=== PATIENT | female | born 1950 | race African-American/Black ===

== ENCOUNTER → 2021-03-27 11:05 | Outpatient (BNVA) | payer MEDICARE, OTHER, SELFPAY | PROVIDERS: PCP Internal Medicine; Referring Provider Internal Medicine; Visit Provider Surgery | DX: Z91.89 Other specified personal risk factors, not elsewhere classified (principal); Z85.3 Personal history of malignant neoplasm of breast | CPT/HCPCS: 99212 ==

== ENCOUNTER → 2021-05-05 11:36 | Outpatient (BNVA) | payer MEDICARE, OTHER, SELFPAY | PROVIDERS: PCP Internal Medicine; Visit Provider Nurse Practitioner Family | DX: G47.33 Obstructive sleep apnea (adult) (pediatric) (principal) | CPT/HCPCS: Q3014 ==

== ENCOUNTER 2021-06-11 10:37 | Outpatient (REF) | payer MEDICARE, OTHER, SELFPAY ==
--- NOTE | ~2021-06-11 | US_ITS ---
EXAMINATION: US DIAGNOSTIC ULTRASOUND BREAST (AXILLA), BILATERAL CLINICAL INFORMATION: Outside high risk screening breast MRI demonstrates prominent bilateral axillary nodes, greater on right. COMPARISON: Outside imaging from [facility]: MR bilateral breasts 05/14/2021, mammography 03/25/2021, 03/21/2020, 03/20/2019. TECHNIQUE: Ultrasound of the bilateral axilla is performed using grayscale imaging and color Doppler without and with harmonics. FINDINGS: Ultrasound right axilla demonstrates 2 left nodes 9:30 o'clock position 20 cm from nipple with thickened cortex measuring up to 0.7 cm. Otherwise, there is normal fatty hilus. Other nodes more cephalad right axilla are approximately 0.35 cm in thickness, also with normal fatty hilus. There is no abnormal color flow. No cystic node or node with spiculated margin. Ultrasound left axilla demonstrates a few small nodes with cortex measuring approximately 0.35 cm in thickness. No abnormal color flow. No cystic node or node with spiculated margin. There is normal fatty hilus. Results are discussed with the patient at time of visit. The nodes are described as change from prior exams. Ultrasound-guided sampling of one of the thickened right axillary nodes is suggested. Results called to senior medical billing specialist ([place]) for Dr. Camarillo on 06/11/2021. US/US breast LT limited IMPRESSION: Nonspecific parenchymal thickening involving 2 right axillary nodes. ASSESSMENT: BI-RADS 4: Suspicious (subcategory 4A: Low suspicion for malignancy) RECOMMENDATION: Ultrasound-guided biopsy right axillary node.
--- NOTE | ~2021-06-11 | US_ITS ---
EXAMINATION: US DIAGNOSTIC ULTRASOUND BREAST (AXILLA), BILATERAL CLINICAL INFORMATION: Outside high risk screening breast MRI demonstrates prominent bilateral axillary nodes, greater on right. COMPARISON: Outside imaging from [facility]: MR bilateral breasts 05/14/2021, mammography 03/25/2021, 03/21/2020, 03/20/2019. TECHNIQUE: Ultrasound of the bilateral axilla is performed using grayscale imaging and color Doppler without and with harmonics. FINDINGS: Ultrasound right axilla demonstrates 2 left nodes 9:30 o'clock position 20 cm from nipple with thickened cortex measuring up to 0.7 cm. Otherwise, there is normal fatty hilus. Other nodes more cephalad right axilla are approximately 0.35 cm in thickness, also with normal fatty hilus. There is no abnormal color flow. No cystic node or node with spiculated margin. Ultrasound left axilla demonstrates a few small nodes with cortex measuring approximately 0.35 cm in thickness. No abnormal color flow. No cystic node or node with spiculated margin. There is normal fatty hilus. Results are discussed with the patient at time of visit. The nodes are described as change from prior exams. Ultrasound-guided sampling of one of the thickened right axillary nodes is suggested. Results called to auditor medical claims ([place]) for Dr. Camarillo on 06/11/2021. US/US breast RT limited IMPRESSION: Nonspecific parenchymal thickening involving 2 right axillary nodes. ASSESSMENT: BI-RADS 4: Suspicious (subcategory 4A: Low suspicion for malignancy) RECOMMENDATION: Ultrasound-guided biopsy right axillary node.
== END 2021-06-11 10:38 | disposition home or self-care (01) ==
LOC: HO.MAMMO 10:37
PROVIDERS: PCP Internal Medicine; Visit Provider Surgery
DX: R59.9 Enlarged lymph nodes, unspecified (principal); D05.01 Lobular carcinoma in situ of right breast
CPT/HCPCS: 76642

== ENCOUNTER 2021-06-13 10:04 | Outpatient (REF) | payer MEDICARE, OTHER, SELFPAY ==
--- NOTE | ~2021-06-13 | MM_ITS ---
EXAMINATION: ULTRASOUND GUIDED CORE BIOPSY AXILLA, RIGHT POST PROCEDURE DIGITAL MAMMOGRAM, RIGHT CLINICAL INFORMATION: Prominent axillary nodes greater on right on outside high risk screening breast MRI. Nodes with thickened cortex on recent targeted ultrasound. COMPARISON: Bilateral axillary ultrasound 06/11/2021, outside imaging from [facility]: MR bilateral breasts 05/14/2021, mammography 03/25/2021, 03/21/2020, 03/20/2019. FINDINGS: Proper informed consent is obtained from the patient after discussion of the procedure, potential risks and complications, and alternatives. Patient was given an opportunity for questions. The patient appeared to understand. The patient consented to the procedure and signed the consent form. GUIDANCE: Ultrasound-guided; aseptic technique. LESION: Right axillary nodes with thickened parenchyma. APPROACH: Lateral medial. ANESTHESIA: 9.5 mL carbonated 1% lidocaine. DERMATOTOMY: Single skin alberto dermatotomy performed. NEEDLE: 16-gauge Bard Marquee biopsy device with co-axial introducer. CORES: 6. Material sent for histology and if required flow cytometry CLIP: HydroMARK; shape: butterfly. POST PROCEDURE UNILATERAL DIGITAL MAMMOGRAM: The post biopsy mammogram is performed in separate room using separate digital mammography equipment from the biopsy procedure. Single MLO view targeted to the upper breast and axillary is performed. There are scattered areas of fibroglandular density (breast composition category: b). The clip marker is in position, overlying the axillary node. There is background tissue density from the procedure and anesthesia. Otherwise, no gross hematoma. The patient tolerated the procedure well. No immediate complications. Home instructions reviewed with the patient. Final pathology results are pending. MM/MM diagnostic mammo unilat RT IMPRESSION: 1. Status post ultrasound-guided core biopsy right axillary node. 2. Clip placed: HydroMARK; shape: butterfly. 3. Pathology pending. An addendum report will be issued.
[2021-06-13] MEDS: Sodium Bicarbonate 8.4% 50 MEQ/50 ML VIAL SUBCUT (11:30)
[2021-06-13] MEDS: Lidocaine HCl 1 % 20 ML VIAL 9 ML SUBCUT (11:30)
== END 2021-06-13 10:05 | disposition home or self-care (01) ==
LOC: HO.MAMMO 10:04
PROVIDERS: Radiology Diagnostic Radiology; Visit Provider Surgery
DX: D05.01 Lobular carcinoma in situ of right breast (principal); R59.9 Enlarged lymph nodes, unspecified
CPT/HCPCS: 19083; 36415; 38505; 76942; 77065; 88184; 88185; 88300; 88305; 88341; 88342; 88360

== ENCOUNTER → 2021-06-30 10:12 | Outpatient (REF) | payer MEDICARE, OTHER, SELFPAY ==
--- NOTE | ~2021-06-30 | NM_ITS ---
EXAMINATION: NM BONE SCAN OF THE WHOLE BODY CLINICAL INFORMATION: Right breast cancer. Patient states status post fall 2-3 weeks ago her right knee but improving now. COMPARISON: No previous bone scan or recent radiographs are available for comparison. TECHNIQUE: Multiple gamma scintillation camera images of the whole body were performed 3 hours following the intravenous administration of 32 mCi Tc-99m MDP. FINDINGS: In the head, no significant abnormalities are present. In the thoracic cage and upper extremities, there is moderately increased activity in the acromioclavicular and sternoclavicular joints bilaterally, in the glenohumeral articulations bilaterally but much more prominently on the right and in the lateral subacromial region of the right humeral head. Mild periarticular foci of increased activity are present in both hands and wrists and there is some mild retained radiopharmaceutical in the region of the injection site in the left antecubital fossa. In the spine, there is mildly increased activity in a lower thoracic vertebral body, probably at T9. Additional foci of mildly increased activity are present in the right side of the mid to lower cervical spine and anteriorly in the lower cervical spine at the C7-T1 level. There are additional mild foci of increased activity present bilaterally in the posterior elements in the mid lumbar spine probably at the L3-L4 level and there is minimally increased activity in the right side of the lumbosacral junction. In the pelvis, there is moderately increased activity diffusely in the left sacroiliac joint and mildly in the superior aspect of the right sacroiliac joint. There is mildly increased activity in the right acetabulum. In the lower extremities, there is mildly increased activity diffusely in both knees, most prominently in the patellar and medial compartments. There is additional focus of increased activity of mild intensity in the left greater femoral trochanter, likely due to an enthesopathy, and there are mild foci of increased activity present laterally in the mid feet bilaterally and in the medial aspects of both ankles. No other definite bony abnormalities are noted. The urinary bladder and faint visualization of both kidneys are noted. NM/NM bone scan whole body IMPRESSION: Multiple abnormalities are noted and these are almost all periarticular in etiology and likely degenerative. Correlation of these abnormalities with plain radiographs is recommended, particularly in the pelvis and lumbar and lower thoracic spine.
== END ==
LOC: HO.NUCMED 10:12
PROVIDERS: Visit Provider Internal Medicine
DX: D05.01 Lobular carcinoma in situ of right breast (principal)
CPT/HCPCS: 78306; A9503

== ENCOUNTER 2021-07-01 09:48 | Outpatient (REF) | payer MEDICARE, OTHER, SELFPAY ==
--- NOTE | ~2021-07-01 | CT_ITS ---
EXAMINATION: CT CHEST, ABDOMEN AND PELVIS WITH CONTRAST CLINICAL INFORMATION: Staging of breast cancer. COMPARISON: None TECHNIQUE: 5 mm thin axial and reformatted 3 mm thin sagittal and coronal images of the chest, abdomen and pelvis were obtained following IV 85 mL Omnipaque 350. DLP: 1176 mGy-cm. FINDINGS: CHEST: Lungs: Both lungs are fairly well expanded and clear of acute process. There is no pulmonary nodule, mass or consolidation seen. Mediastinum: The thyroid lobes are symmetrical and normal size but heterogeneous with small nodules. The central trachea and the bronchi are widely patent. The heart size and the great vessels are normal caliber. There is no pericardial effusion. No abnormal size mediastinal or hilar lymph nodes. Pleura: There is no pleural thickening, effusion or calcification. Axilla: There are small shotty lymph nodes in bilateral axillae with largest lymph node right axilla measuring 1.2 cm and 1.5 cm. The largest left axillary lymph node measures 1.3 cm. ABDOMEN AND PELVIS: Liver, Biliary Ducts and Gallbladder: The liver is normal size, contour and hypodensity. There is no intrahepatic ductal dilatation. There are small punctate hypodensities in the right hepatic lobe segment VII, question small cysts. The gallbladder is unremarkable. Spleen: Unremarkable. Pancreas: Unremarkable. Adrenal Glands: Unremarkable Kidneys, Ureter and Bladder: Both kidneys are normal size, lobulated and bilateral hypodense renal cysts. The largest cyst partially exophytic midpole measures 6.7 x 5.1 cm. There are no radiopaque calculi or hydronephrosis. Bladder: Unremarkable. GI Tract: There is scattered stool, gas and oral contrast seen throughout the colon without distention. The small bowel loops are normal caliber. Appendix is not visualized. The stomach is nondistended. No free air or free fluid seen. A small hiatal hernia is suspected. Abdominal Wall: There surgical sutures in the right lower abdomen from hernia repair or intervention. There is a small lipoma of the anterior sartorius or rectus femoris muscle. Lymphovascular Structures: The abdominal aorta is of normal caliber. There are no retroperitoneal masses or lymph nodes seen. Pelvis: The abdominal wall appears unremarkable. The uterus is anteverted and appears unremarkable. There is no free air or free fluid. Osseous structures: There are degenerative disc changes at L5-S1 and lower dorsal spine T11-T12, T8-T9, T7-T8 and rest of the mid thoracic spine. CT/CT abdomen pelvis w con IMPRESSION: No evidence of metastatic lung nodules or abnormal size mediastinal lymph nodes. There are borderline bilateral axillary lymph nodes. Mild attenuation of the liver with punctate hypodensities in the right hepatic lobe, question small cysts. No abnormal retroperitoneal or inguinal lymph nodes. Bilateral renal cysts without radiopaque calculi or hydronephrosis.
[2021-07-01] MEDS: iohexoL 350 MG/ML 100 ML INFUS..BTL IV (10:42)
== END 2021-07-01 09:49 | disposition home or self-care (01) ==
LOC: HO.CT 09:48
PROVIDERS: Visit Provider Internal Medicine
DX: D05.01 Lobular carcinoma in situ of right breast (principal)
CPT/HCPCS: 71260; 74177; Q9967

== ENCOUNTER 2021-07-04 08:01 | Outpatient (REF) | payer MEDICARE, OTHER, SELFPAY ==
--- NOTE | ~2021-07-04 | MM_ITS ---
EXAMINATION: MM DIAGNOSTIC DIGITAL MAMMOGRAPHY, LEFT CLINICAL INFORMATION: Post biopsy clip placement left axillary lymph node COMPARISON: Mammography: August 13, 2021 and March 25, 2021 DIGITAL POST-PROCEDURE MAMMOGRAPHY: Breast density: The tissue contains scattered areas of fibroglandular density. BI-RADS version 5, category B. There are no new mammographic findings demonstrated. The postprocedure 2-view direct digital mammogram reveals satisfactory positioning of the biopsy clip. The patient tolerated the procedure well and, after assuring adequate hemostasis, was discharged in good condition after reviewing postbiopsy breast care instructions. Final pathology results are pending. MM/MM diagnostic mammo unilat LT IMPRESSION: 1. No immediate complication from ultrasound-guided percutaneous biopsy left axillary lymph node. 2. Ultrasound was used to localize and guide marker clip placement. 3. The 2-view direct digital postprocedure mammogram reveals satisfactory positioning of the biopsy clip. 4. Final pathology results are pending. A separate report with final recommendations will be issued once these results are made available.
--- NOTE | ~2021-07-04 | US_ITS ---
PROCEDURE: US-GUIDED BREAST BIOPSY, LEFT CLINICAL INFORMATION: Question enlarged left axillary lymph node. Patient with metastatic lobular carcinoma of the breast with metastatic disease to right axillary lymph nodes. COMPARISON: CT scans of 07/01/2021, ultrasound of 06/11/2021, and MRI of 05/14/2021. PROCEDURAL DETAILS: The details of the procedure, as well as the risks, benefits, and alternatives to the procedure were explained to the patient in detail and all of her questions were answered, after which written informed consent was obtained. Site and side were confirmed. Prior to the procedure, sonography revealed a few left axillary lymph nodes with the most prominent on having mildly thickened cortex to approximately 4 mm in diameter without lobulation and with normal fatty cleft still evident within the lymph node. A time-out was performed, the lesion intended for biopsy was targeted, and the skin of the left axilla was then prepped and draped in the usual sterile fashion. Using sonographic guidance, sterile technique, and 1% lidocaine without epinephrine for local anesthesia, multiple automated core biopsies were obtained through the targeted area with a 14G spring loaded Achieve core biopsy device. There was real-time confirmation of appropriate needle passage. Sampling was documented. At the completion of tissue sampling, a single open coil metallic clip was deposited at the biopsy site. There was no evidence of immediate complication. SPECIMEN: An appropriate sample was obtained. DIGITAL POST-PROCEDURE MAMMOGRAPHY: Breast Density: The tissue contains scattered areas of fibroglandular density. BI-RADS version 5, category B. There are no new mammographic findings demonstrated. The postprocedure 2-view direct digital mammogram reveals satisfactory positioning of the biopsy clip. The patient tolerated the procedure well and, after assuring adequate hemostasis, was discharged in good condition after reviewing postbiopsy breast care instructions. Final pathology results are pending. US/US biopsy lymph node IMPRESSION: 1. No immediate complication from ultrasound-guided percutaneous biopsy left axillary lymph node. 2. Ultrasound was used to localize and guide marker clip placement. 3. The 2-view direct digital postprocedure mammogram reveals satisfactory positioning of the biopsy clip. 4. Final pathology results are pending. A separate report with final recommendations will be issued once these results are made available.
[2021-07-04] MEDS: Lidocaine HCl 1 % 20 ML VIAL 9 ML SUBCUT (10:19)
== END 2021-07-04 08:02 | disposition home or self-care (01) ==
LOC: HO.MAMMO 08:01
PROVIDERS: Visit Provider Internal Medicine
DX: C50.919 Malignant neoplasm of unspecified site of unspecified female breast (principal); R59.9 Enlarged lymph nodes, unspecified
CPT/HCPCS: 38505; 76942; 77065; 88305; 88342; A4648

== ENCOUNTER 2023-03-30 10:58 | Outpatient (AMB) | payer MEDICARE, OTHER, SELFPAY ==
--- NOTE | 2023-03-30 11:12 | HO.NEPHOV_ITS ---
HPI HPI Comments History of Present Illness Details I had the privilege of seeing Kellee in follow-up of her chronic kidney disease and hypertension. She had right breast cancer and had been getting treatment from [facility]. She is on Abemaciclib. Her last serum creatinine was 1.8. She is not taking the losartan. Her blood sugar control is good. She does not have any chest pain, shortness of breath, proximal nocturnal dyspnea, orthopnea, pedal edema, hematuria or any other new systemic complaints. [facility] Medical History (Updated 03/30/23 @ 13:44 by Qamar Cee MD) Hypertension Hypercholesterolemia Diabetes mellitus Lobular carcinoma in situ At high risk for breast cancer Surgical History History of lumpectomy Family History Father Prostate cancer Diabetes HTN (hypertension) Mother Diabetes HTN (hypertension) Social History Household Members: Family and Friend(s) Household Members Other:: mom Housing: House Are you a primary pharmacy care coordinator to a significant other at home: Yes Do you presently have visiting nurse or other home services: No Patient Tobacco Use Status: Never used Tobacco service: No Current occupational status: retired Vital Signs 03/30/23 11:17 Height 5 ft 3 in Weight 209 lb BMI 37.0 BP 130/80 Blood Pressure Location Rt brachial Position Sitting Pulse 84 Pulse Source Pulse Oximeter Pulse Oximetry (%) 97 Oxygen Delivery Method Room Air Physical Exam Vital Signs: Last Vital Signs Pulse 84 03/30/23 11:17 BP 130/80 03/30/23 11:17 Pulse Ox 97 03/30/23 11:17 Oxygen Delivery Method Room Air 03/30/23 11:17 BMI result Body Mass Index 37.0 Const General: comfortable and no acute distress Orientation/consciousness: patient oriented x3 HEENT Head: Yes normocephalic Mouth: Normal oral and palatal mucosa present Eyes EOM: EOMs intact bilaterally Neck Neck: Yes supple Resp Auscultation: clear to auscultation bilaterally Cardio Jugular venous distension: no JVD Rate: regular rate GI Palpation (GI): Soft to palpation Auscultation: normal bowel sounds General: Yes no CVA tenderness Back/Spine/Pelvis Back: no CVA tenderness Skin General skin exam: no rashes or lesions noted Neuro General: patient oriented x3 and moves all extremities Extrem General: Yes no pedal edema Assessment & Plan Assessment & Plan (1) CKD (chronic kidney disease) stage 3, GFR 30-59 ml/min: Code(s): N18.30 - Chronic kidney disease, stage 3 unspecified Qualifiers: Chronic kidney disease stage 3 subtype: stage 3a (GFR 45-59) Qualified Code(s): N18.31 - Chronic kidney disease, stage 3a (2) Hypertension: Code(s): I10 - Essential (primary) hypertension Qualifiers: Hypertension type: primary hypertension Qualified Code(s): I10 - Essential (primary) hypertension (3) Proteinuria: Code(s): R80.9 - Proteinuria, unspecified Qualifiers: Proteinuria type: other Qualified Code(s): R80.8 - Other proteinuria Plan Kellee has 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 Her serum creatinine is mildly worse from baseline but stable. Her blood pressure is at goal. She is not taking any losartan. She can continue her current antihypertensive medication regimen. She is on chemotherapeutic agents. She needs to use her CPAP regularly. I did not make any medication changes today. Follow-up blood work ordered. All questions answered. Follow-up given Orders: Orders Electrolytes Today N18.30 - Chronic kidney disease, stage 3 unspecified Blood Urea Nitrogen Today N18.30 - Chronic kidney disease, stage 3 unspecified Creatinine Today N18.30 - Chronic kidney disease, stage 3 unspecified Calcium Today N18.30 - Chronic kidney disease, stage 3 unspecified Protein Creatinine Ratio, Ur Today N18.30 - Chronic kidney disease, stage 3 unspecified Coding Level of Care Code Est Pt Level 3 (57998) Diagnoses Stage 3a chronic kidney disease N18.31 Chronic kidney disease stage 3 subtype: stage 3a (GFR 45-59) Primary hypertension I10 Hypertension type: primary hypertension Other proteinuria R80.8 Proteinuria type: other
[2023-03-30 11:17] VITALS: BP 130/80; PULSE 84; O2SAT 97; BMI 37.0
== END 2023-03-30 11:54 | disposition home or self-care (01) ==
PROVIDERS: PCP Internal Medicine; Visit Provider Internal Medicine Nephrology
DX: N18.31 Chronic kidney disease, stage 3a (principal); I10 Essential (primary) hypertension; R80.8 Other proteinuria
CPT/HCPCS: 99213

== ENCOUNTER → 2023-03-30 10:58 | Outpatient (BNVA) | payer MEDICARE, OTHER, SELFPAY | PROVIDERS: PCP Internal Medicine; Visit Provider Internal Medicine Nephrology | DX: I12.9 Hypertensive chronic kidney disease with stage 1 through stage 4 chronic kidney disease, or unspecified chronic kidney disease (principal); N18.31 Chronic kidney disease, stage 3a; R80.8 Other proteinuria | CPT/HCPCS: 99212 ==

== ENCOUNTER 2023-07-22 10:06 | Outpatient (AMB) | payer MEDICARE, OTHER, SELFPAY ==
--- NOTE | 2023-07-22 10:12 | HO.NEPHOV ---
HPI HPI Comments History of Present Illness Details I had the privilege of seeing Kellee in follow-up of her chronic kidney disease and hypertension. She had right breast cancer and had been getting treatment from [facility]. She is on Abemaciclib. Her last serum creatinine was 1.64. She is not taking the losartan. Her blood sugar control is good. She does not have any chest pain, shortness of breath, proximal nocturnal dyspnea, orthopnea, pedal edema, hematuria or any other new systemic complaints. [facility] Medical History (Updated 03/30/23 @ 13:44 by Qamar Cee MD) Hypertension Hypercholesterolemia Diabetes mellitus Lobular carcinoma in situ At high risk for breast cancer Surgical History History of lumpectomy Family History Father Prostate cancer Diabetes HTN (hypertension) Mother Diabetes HTN (hypertension) Social History Household Members: Family and Friend(s) Household Members Other:: mom Housing: House Are you a primary direct care specialist to a significant other at home: Yes Do you presently have visiting nurse or other home services: No Patient Tobacco Use Status: Never used Tobacco service: No Current occupational status: retired Vital Signs 07/22/23 10:30 Height 5 ft 3 in BP 134/80 Blood Pressure Location Rt brachial Position Sitting Pulse 98 Pulse Source Pulse Oximeter Pulse Oximetry (%) 97 Oxygen Delivery Method Room Air Physical Exam Const General: comfortable and no acute distress Orientation/consciousness: patient oriented x3 HEENT Head: Yes normocephalic Mouth: Normal oral and palatal mucosa present Eyes EOM: EOMs intact bilaterally Neck Neck: Yes supple Resp Auscultation: clear to auscultation bilaterally Cardio Jugular venous distension: no JVD Rate: regular rate GI Palpation (GI): Soft to palpation Auscultation: normal bowel sounds General: Yes no CVA tenderness Back/Spine/Pelvis Back: no CVA tenderness Skin General skin exam: no rashes or lesions noted Neuro General: patient oriented x3 and moves all extremities Extrem General: Yes no pedal edema Assessment & Plan Assessment & Plan (1) CKD (chronic kidney disease) stage 3, GFR 30-59 ml/min: Code(s): N18.30 - Chronic kidney disease, stage 3 unspecified Qualifiers: Chronic kidney disease stage 3 subtype: stage 3a (GFR 45-59) Qualified Code(s): N18.31 - Chronic kidney disease, stage 3a (2) Hypertension: Code(s): I10 - Essential (primary) hypertension Qualifiers: Hypertension type: primary hypertension Qualified Code(s): I10 - Essential (primary) hypertension (3) Proteinuria: Code(s): R80.9 - Proteinuria, unspecified Qualifiers: Proteinuria type: other Qualified Code(s): R80.8 - Other proteinuria Plan Kellee has 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 Her serum creatinine is stable. Her last serum creatinine was 1.64, Her blood pressure is at goal. She is not taking any losartan. She can continue her current antihypertensive medication regimen. She is on chemotherapeutic agents. She needs to use her CPAP regularly. I did not make any medication changes today. Follow-up blood work ordered. All questions answered. Follow-up given Orders: Orders Creatinine Today I10 - Essential (primary) hypertension, N18.31 - Chronic kidney disease, stage 3a, R80.8 - Other proteinuria Blood Urea Nitrogen Today I10 - Essential (primary) hypertension, N18.31 - Chronic kidney disease, stage 3a, R80.8 - Other proteinuria Electrolytes Today I10 - Essential (primary) hypertension, N18.31 - Chronic kidney disease, stage 3a, R80.8 - Other proteinuria Calcium Today I10 - Essential (primary) hypertension, N18.31 - Chronic kidney disease, stage 3a, R80.8 - Other proteinuria Protein Creatinine Ratio, Ur Today I10 - Essential (primary) hypertension, N18.31 - Chronic kidney disease, stage 3a, R80.8 - Other proteinuria Medications: New clonidine HCl 0.1 mg PO BID 60 tabs 4RF blood pressure test kit-large As directed 1 ea 0RF Coding Level of Care Code Est Pt Level 4 (87787) Diagnoses Stage 3a chronic kidney disease N18.31 Chronic kidney disease stage 3 subtype: stage 3a (GFR 45-59) Primary hypertension I10 Hypertension type: primary hypertension Other proteinuria R80.8 Proteinuria type: other Results Reviewed Nephrology Results: Hgb 11.4 g/dl (12.0-16.0) L 06/23/21 WBC 5.0 X10*3/uL (4.8-10.8) 06/23/21 Plt Count 235 X10*3/uL (160-400) 06/23/21 Sodium 141 mmol/L (135-145) 06/23/21 Potassium 3.8 mmol/L (3.3-5.1) 06/23/21 Chloride 107 mmol/L (96-108) 06/23/21 Carbon Dioxide 26 mmol/L (22-29) 06/23/21 BUN 15 mg/dL (9-16) 06/23/21 Creatinine 1.15 mg/dL (0.5-1.4) 06/23/21 Calcium 10.1 mg/dL (8.4-10.2) 06/23/21
[2023-07-22 10:30] VITALS: BP 134/80; PULSE 98; O2SAT 97
== END 2023-07-22 11:09 | disposition home or self-care (01) ==
PROVIDERS: PCP Internal Medicine; Visit Provider Internal Medicine Nephrology
DX: N18.31 Chronic kidney disease, stage 3a (principal); I10 Essential (primary) hypertension; R80.8 Other proteinuria
CPT/HCPCS: 99214

== ENCOUNTER → 2023-07-22 10:06 | Outpatient (BNVA) | payer MEDICARE, OTHER, SELFPAY | PROVIDERS: PCP Internal Medicine; Visit Provider Internal Medicine Nephrology | DX: I12.9 Hypertensive chronic kidney disease with stage 1 through stage 4 chronic kidney disease, or unspecified chronic kidney disease (principal); N18.31 Chronic kidney disease, stage 3a; R80.8 Other proteinuria | CPT/HCPCS: 99212 ==

== ENCOUNTER 2023-11-18 10:11 | Outpatient (AMB) | payer MEDICARE, OTHER, SELFPAY ==
--- NOTE | 2023-11-18 10:40 | HO.NEPHOV ---
Vital Signs 11/18/23 10:41 Height 5 ft 3 in BP 110/80 Blood Pressure Location Lt brachial Position Sitting Pulse 62 Pulse Source Pulse Oximeter Pulse Oximetry (%) 97 Oxygen Delivery Method Room Air Intake Visit Reasons: 4 month F/U / Conf Clinical Data Assistant Required: No Accompanied by: Self / Same As Patient Allergies codiene Allergy (Unknown, Uncoded 07/16/21 10:55) nausea and vomiting HPI Comments Details: I had the privilege of seeing Kellee in follow-up of her chronic kidney disease and hypertension. She had right breast cancer and had been getting treatment from [facility]. She is on Abemaciclib. Her last serum creatinine was 1.94( up from her baseline). She is not taking the losartan. Her blood sugar control is good. She does not have any chest pain, shortness of breath, proximal nocturnal dyspnea, orthopnea, pedal edema, hematuria or any other new systemic complaints. [facility] Medical History (Updated 03/30/23 @ 13:44 by Qamar Cee MD) Hypertension Hypercholesterolemia Diabetes mellitus Lobular carcinoma in situ At high risk for breast cancer Surgical History History of lumpectomy Family History Father Prostate cancer Diabetes HTN (hypertension) Mother Diabetes HTN (hypertension) Social History Household Members: Family and Friend(s) Household Members Other:: mom Housing: House Are you a primary child care coordinator to a significant other at home: Yes Do you presently have visiting nurse or other home services: No Patient Tobacco Use Status: Never used Tobacco service: No Current occupational status: retired Review of Systems Const All systems reviewed & are unremarkable except as noted in HPI and below Physical Exam Vital Signs: Last Vital Signs Pulse 62 11/18/23 10:41 BP 110/80 11/18/23 10:41 Pulse Ox 97 11/18/23 10:41 Oxygen Delivery Method Room Air 11/18/23 10:41 Const General: comfortable and no acute distress Orientation/consciousness: patient oriented x3 HEENT Head: Yes normocephalic Mouth: Normal oral and palatal mucosa present Eyes EOM: EOMs intact bilaterally Neck Neck: Yes supple Resp Auscultation: clear to auscultation bilaterally Cardio Jugular venous distension: no JVD Rate: regular rate GI Palpation (GI): Soft to palpation Auscultation: normal bowel sounds General: Yes no CVA tenderness Back/Spine/Pelvis Back: no CVA tenderness Skin General skin exam: no rashes or lesions noted Neuro General: patient oriented x3 and moves all extremities Extrem General: Yes no pedal edema Results Reviewed Nephrology Results: Hgb 11.4 g/dl (12.0-16.0) L 06/23/21 WBC 5.0 X10*3/uL (4.8-10.8) 06/23/21 Plt Count 235 X10*3/uL (160-400) 06/23/21 Sodium 141 mmol/L (135-145) 06/23/21 Potassium 3.8 mmol/L (3.3-5.1) 06/23/21 Chloride 107 mmol/L (96-108) 06/23/21 Carbon Dioxide 26 mmol/L (22-29) 06/23/21 BUN 15 mg/dL (9-16) 06/23/21 Creatinine 1.15 mg/dL (0.5-1.4) 06/23/21 Calcium 10.1 mg/dL (8.4-10.2) 06/23/21 Assessment & Plan Assessment & Plan (1) CKD (chronic kidney disease) stage 3, GFR 30-59 ml/min: Code(s): N18.30 - Chronic kidney disease, stage 3 unspecified Category: Medical Qualifiers: Chronic kidney disease stage 3 subtype: stage 3a (GFR 45-59) Qualified Code(s): N18.31 - Chronic kidney disease, stage 3a (2) Hypertension: Code(s): I10 - Essential (primary) hypertension Category: Medical Qualifiers: Hypertension type: primary hypertension Qualified Code(s): I10 - Essential (primary) hypertension Plan Kellee has 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 Her serum creatinine has gone up. Her last serum creatinine was 1.9, Her blood pressure is at goal. She is not taking any losartan. She can continue her current antihypertensive medication regimen. She is on chemotherapeutic agents. She needs to use her CPAP regularly. I did not make any medication changes today. Follow-up blood work ordered. All questions answered. Follow-up given Coding Level of Care Code Est Pt Level 4 (77267) Diagnoses Stage 3a chronic kidney disease N18.31 Chronic kidney disease stage 3 subtype: stage 3a (GFR 45-59) Primary hypertension I10 Hypertension type: primary hypertension
[2023-11-18 10:41] VITALS: BP 110/80; PULSE 62; O2SAT 97
== END 2023-11-18 11:22 | disposition home or self-care (01) ==
PROVIDERS: PCP Internal Medicine; Visit Provider Internal Medicine Nephrology
DX: N18.31 Chronic kidney disease, stage 3a (principal); I10 Essential (primary) hypertension
CPT/HCPCS: 99214

== ENCOUNTER → 2023-11-18 10:11 | Outpatient (BNVA) | payer MEDICARE, OTHER, SELFPAY | PROVIDERS: PCP Internal Medicine; Visit Provider Internal Medicine Nephrology | DX: I12.9 Hypertensive chronic kidney disease with stage 1 through stage 4 chronic kidney disease, or unspecified chronic kidney disease (principal); N18.31 Chronic kidney disease, stage 3a | CPT/HCPCS: 99212 ==

== ENCOUNTER 2024-01-27 13:25 | Outpatient (AMB) | payer MEDICARE, OTHER, SELFPAY ==
--- NOTE | 2024-01-27 13:38 | HO.NEPHOV_ITS ---
Vital Signs 01/27/24 13:39 Height 5 ft 3 in BP 132/78 Blood Pressure Location Rt brachial Position Sitting Pulse 83 Pulse Source Pulse Oximeter Pulse Oximetry (%) 97 Oxygen Delivery Method Room Air Intake Visit Reasons: 2 mon follow up- Conf Sales Assistant Institutional Sales Required: No Accompanied by: Self / Same As Patient Allergies codiene Allergy (Unknown, Uncoded 07/16/21 10:55) nausea and vomiting HPI Comments Details: I had the privilege of seeing Kellee in follow-up of her chronic kidney disease and hypertension. She had right breast cancer and had been getting treatment from [facility]. She is on Abemaciclib. Her last serum creatinine is around 2( up from her baseline). She is not taking the losartan. She is not on any SGLT2 i. Her blood sugar control is good. She does not have any chest pain, shortness of breath, proximal nocturnal dyspnea, orthopnea, pedal edema, hematuria or any other new systemic complaints [facility] Medical History (Updated 03/30/23 @ 13:44 by Qamar Cee MD) Hypertension Hypercholesterolemia Diabetes mellitus Lobular carcinoma in situ At high risk for breast cancer Surgical History History of lumpectomy Family History Father Prostate cancer Diabetes HTN (hypertension) Mother Diabetes HTN (hypertension) Social History Household Members: Family and Friend(s) Household Members Other:: mom Housing: House Are you a primary landcare officer to a significant other at home: Yes Do you presently have visiting nurse or other home services: No Patient Tobacco Use Status: Never used Tobacco service: No Current occupational status: retired Review of Systems Const All systems reviewed & are unremarkable except as noted in HPI and below Physical Exam Vital Signs: Last Vital Signs Pulse 83 01/27/24 13:39 BP 132/78 01/27/24 13:39 Pulse Ox 97 01/27/24 13:39 Oxygen Delivery Method Room Air 01/27/24 13:39 Const General: comfortable and no acute distress Orientation/consciousness: patient oriented x3 HEENT Head: Yes normocephalic Mouth: Normal oral and palatal mucosa present Eyes EOM: EOMs intact bilaterally Neck Neck: Yes supple Resp Auscultation: clear to auscultation bilaterally Cardio Jugular venous distension: no JVD Rate: regular rate GI Palpation (GI): Soft to palpation Auscultation: normal bowel sounds General: Yes no CVA tenderness Back/Spine/Pelvis Back: no CVA tenderness Skin General skin exam: no rashes or lesions noted Neuro General: patient oriented x3 and moves all extremities Extrem General: Yes no pedal edema Assessment & Plan Assessment & Plan (1) CKD (chronic kidney disease) stage 3, GFR 30-59 ml/min: Code(s): N18.30 - Chronic kidney disease, stage 3 unspecified Category: Medical Qualifiers: Chronic kidney disease stage 3 subtype: stage 3a (GFR 45-59) Qualified Code(s): N18.31 - Chronic kidney disease, stage 3a (2) Hypertension: Code(s): I10 - Essential (primary) hypertension Category: Medical Qualifiers: Hypertension type: primary hypertension Qualified Code(s): I10 - Essential (primary) hypertension (3) Proteinuria: Code(s): R80.9 - Proteinuria, unspecified Category: Medical Qualifiers: Proteinuria type: other Qualified Code(s): R80.8 - Other proteinuria Plan Kellee has 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 Her serum creatinine has gone up. Her last serum creatinine is around 2.0. Her blood pressure is at goal. She is not taking any losartan. I started her on Jardiance 10 mg daily. She can continue her current antihypertensive medication regimen. She is on chemotherapeutic agents. She needs to use her CPAP regularly. I did not make any medication changes today. Follow-up blood work ordered. Follow-up given Orders: Orders Creatinine 2 Months I10 - Essential (primary) hypertension, N18.31 - Chronic kidney disease, stage 3a, R80.8 - Other proteinuria Blood Urea Nitrogen 2 Months I10 - Essential (primary) hypertension, N18.31 - Chronic kidney disease, stage 3a, R80.8 - Other proteinuria Electrolytes 2 Months I10 - Essential (primary) hypertension, N18.31 - Chronic kidney disease, stage 3a, R80.8 - Other proteinuria Medications: New empagliflozin (Jardiance) 10 mg PO DAILY 30 days 30 tabs 4RF Coding Level of Care Code Est Pt Level 4 (22265) Diagnoses Stage 3a chronic kidney disease N18.31 Chronic kidney disease stage 3 subtype: stage 3a (GFR 45-59) Primary hypertension I10 Hypertension type: primary hypertension Other proteinuria R80.8 Proteinuria type: other
[2024-01-27 13:39] VITALS: BP 132/78; PULSE 83; O2SAT 97
== END 2024-01-27 14:24 | disposition home or self-care (01) ==
PROVIDERS: PCP Internal Medicine; Visit Provider Internal Medicine Nephrology
DX: N18.31 Chronic kidney disease, stage 3a (principal); I10 Essential (primary) hypertension; R80.8 Other proteinuria
CPT/HCPCS: 99214

== ENCOUNTER → 2024-01-27 13:25 | Outpatient (BNVA) | payer MEDICARE, OTHER, SELFPAY | PROVIDERS: PCP Internal Medicine; Visit Provider Internal Medicine Nephrology | DX: I12.9 Hypertensive chronic kidney disease with stage 1 through stage 4 chronic kidney disease, or unspecified chronic kidney disease (principal); N18.31 Chronic kidney disease, stage 3a; R80.8 Other proteinuria | CPT/HCPCS: 99212 ==

== ENCOUNTER 2024-03-28 10:50 | Outpatient (AMB) | payer MEDICARE, OTHER, SELFPAY ==
--- NOTE | 2024-03-28 11:00 | HO.NEPHOV_ITS ---
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 She had right breast cancer and had been getting treatment from [facility]. She is on Abemaciclib. Her last serum creatinine is around 2( up from her baseline). She is not taking the losartan. She is not on any SGLT2 i. Her blood sugar control is good. She does not have any chest pain, shortness of breath, proximal nocturnal dyspnea, orthopnea, pedal edema, hematuria or any other new systemic complaints [facility] Medical History (Updated 03/30/23 @ 13:44 by Qamar Cee MD) Hypertension Hypercholesterolemia Diabetes mellitus Lobular carcinoma in situ At high risk for breast cancer Surgical History History of lumpectomy Family History Father Prostate cancer Diabetes HTN (hypertension) Mother Diabetes HTN (hypertension) Social History Household Members: Family and Friend(s) Household Members Other:: mom Housing: House Are you a primary rn intensive care unit to a significant other at home: Yes Do you presently have visiting nurse or other home services: No Patient Tobacco Use Status: Never used Tobacco service: No Current occupational status: retired Review of Systems Const All systems reviewed & are unremarkable except as noted in HPI and below Physical Exam Vital Signs: Last Vital Signs BP 130/82 03/28/24 11:01 BMI result Body Mass Index 29.0 Const General: comfortable and no acute distress Orientation/consciousness: patient oriented x3 HEENT Head: Yes normocephalic Mouth: Normal oral and palatal mucosa present Eyes EOM: EOMs intact bilaterally Neck Neck: Yes supple Resp Auscultation: clear to auscultation bilaterally Cardio Jugular venous distension: no JVD Rate: regular rate GI Palpation (GI): Soft to palpation Auscultation: normal bowel sounds General: Yes no CVA tenderness Back/Spine/Pelvis Back: no CVA tenderness Skin General skin exam: no rashes or lesions noted Neuro General: patient oriented x3 and moves all extremities Extrem General: Yes no pedal edema Assessment & Plan Assessment & Plan (1) CKD (chronic kidney disease) stage 3, GFR 30-59 ml/min: Code(s): N18.30 - Chronic kidney disease, stage 3 unspecified Category: Medical Qualifiers: Chronic kidney disease stage 3 subtype: stage 3a (GFR 45-59) Qualified Code(s): N18.31 - Chronic kidney disease, stage 3a (2) Hypertension: Code(s): I10 - Essential (primary) hypertension Category: Medical Qualifiers: Hypertension type: primary hypertension Qualified Code(s): I10 - Essential (primary) hypertension (3) Proteinuria: Code(s): R80.9 - Proteinuria, unspecified Category: Medical Qualifiers: Proteinuria type: other Qualified Code(s): R80.8 - Other proteinuria Plan Kellee has 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 Her serum creatinine has gone up. Her last serum creatinine is around 2.3. Her blood pressure is at goal. She is not taking any losartan. She is on Jardiance 10 mg daily. She can continue her current antihypertensive medication regimen. She is on chemotherapeutic agents. She needs to use her CPAP regularly. I did not make any medication changes today. She may need renal biopsy . I shall do a 24 hour urine for cr cl later. Follow-up blood work ordered. Follow-up given Orders: Orders Creatinine 3 Months I10 - Essential (primary) hypertension, N18.31 - Chronic kidney disease, stage 3a, R80.8 - Other proteinuria Electrolytes 3 Months I10 - Essential (primary) hypertension, N18.31 - Chronic kidney disease, stage 3a, R80.8 - Other proteinuria Blood Urea Nitrogen 3 Months I10 - Essential (primary) hypertension, N18.31 - Chronic kidney disease, stage 3a, R80.8 - Other proteinuria Calcium 3 Months I10 - Essential (primary) hypertension, N18.31 - Chronic kidney disease, stage 3a, R80.8 - Other proteinuria Parathyroid Hormone Intact 3 Months I10 - Essential (primary) hypertension, N18.31 - Chronic kidney disease, stage 3a, R80.8 - Other proteinuria Coding Level of Care Code Est Pt Level 4 (88471) Diagnoses Stage 3a chronic kidney disease N18.31 Chronic kidney disease stage 3 subtype: stage 3a (GFR 45-59) Primary hypertension I10 Hypertension type: primary hypertension Other proteinuria R80.8 Proteinuria type: other
[2024-03-28 11:01] VITALS: BP 130/82; BMI 29.0
--- OUTSIDE RECORDS SUMMARY | 2024-03-28 11:18 | XMS_ITS | Continuity of Care Document ---
Author Organization [facility] [address] [facility] [address] [place] [address] Phone [phone] Care Team Providers Care Concrete Saw Operator Name Role Phone Alicia West M.D. Care Team Information Receiv er [phone] Problems Active Problems Provider Date Diabetes mellitus Kt Bird M.D. Onset: 1 Essential hypertension Kt Bird M.D. Ons et: 02/04/2022 Hypercholesterolemia Kt Bird M.D. Onset : 02/04/2022 Carcinoma of breast Kt Bird M.D. Onset: 02/04/2022 Renal insufficiency Kt Bird M.D. Onset: 12/08/2022 Social History Type Date Description Comments Sex Unknown Lives With Alone ETOH Use Denies alcohol use Tobacco Use Start: Unknown Patient has never smoked Allergies and adverse reactions Active Allergies Criticality Reaction Severity Comments Date Codeine Unable to assess criticality 12/08/2022 Medications Active Medications SIG Qnty Indications Order ing Provider Date Trulicity1.5mg/0.5ML Solution Auto-Inject Administer 1.5 MG Under The Skin Every Week 6ml E11.21 Chio Waters M.D. 01/17/2024 Dexcom G7 ReceiverDevice use for sugar reading dx e11.9 1units E11.9 Chio Waters M.D. 09/07/2023 Dexcom G7 SensorMisc use to check sugar dx e11.9 9units E11.9 Chio Waters M.D. 09/07/2023 [id number] Tablets 1 by mouth every day Kt Bird M.D. 08/06/2023 Atorvastatin Ctcwmts98nt Tablets 1 Tab by mouth every day 90tabs Kt Bird M.D. 08/06/2023 Ksei269(65Fe) mg Tablets 1 tab by mouth every day Kt Bird M.D. 12/08/2022 Kjdenelw15gv Tablets bid Kevin Bird M.D. 07/02/2022 BD Pen Needle/Nadege/Ultra -Fine/32G X 4mm32G X 4 mm Misc 1 pen needle to insulin pen three times a day Dx: E11.9 300units E11.9 Kt Bird M.D. 02/03/2022 Amlodipine Nvmoiazv1gs Tablets 1 by mouth every day Coleman Foote MD Clonidine HCL0.1mg Tablets 1 bid Unknown Tramadol DPN40kk Tablets take 1 tablet by mouth daily as needed 30tabs Alicia West M.D. Tolterodine Tartrate ER4mg Caps ER 24HR 1 by mouth every day Gomez French M.D. Ondansetron HCL8mg Tablets take as directed as needed for nausea Unknown Nebivolol KWT63zo Tablets 1 tab by mouth every day Unknown History Medications Metformin [id number] Tablets Take 1 Tablet Twice A Day 180tabs Kt Bird M.D. 06/09/2023 - 08/06/2023 Vital Signs Date Vital Result Comment 12/08/2023 10:57am BP Systolic 114 mmHg BP Diastolic 78 mmHg Heart Rate 98 /min Height 63 inches 5'3 Weight 227.38 lb BMI (Body Mass Index) 40.3 kg/m2 Results Test Acquired Date Facility Test Result H/L [place] Laboratory test finding 12/08/2023 Inhouse Glucose Fingerstick 167 Laboratory test finding 08/06/2023 Inhouse Glucose Fingerstick 137 Hemoglobin A1c 6.8% Laboratory test finding 04/02/2023 Inhouse Glucose Fingerstick 146 Hemoglobin A1c 03/16/[address] [address] [phone] Hemoglobin A1c <pending> Laboratory test finding 03/16/[address] [place] [address] Glucose Fasting Serum/Plasma <pending> Lipid Panel 03/16/[address] [address] [phone] Cholesterol Total Mass/Vol <pending> Cholester/HDL Molecular Ratio <pending> High Density Lipoprotein <pending> LDL/HDL Mass Ratio <pending> LDL Cholesterol Mass/Vol <pending> Triglycerides Ser/Plas Mass/VL <pending> Laboratory test finding 12/08/2022 Inhouse Glucose Fingerstick 140 Medical Devices Description No Information Available Encounters Type Date Location Provider Dx Diagnosis Office Visit 12/08/2023 10:45a Main Office LAURA Smiley E11.9 Type 2 diabet es mellitus without complications E11.21 Type 2 diabetes quang itus with diabetic nephropathy I10 Essential (primary) hypertension E78.00 Pure hypercholestero lemia, unspecified Assessments Date Code Description Provider 12/08/2023 E11.9 Type 2 diabetes mellitus wit hout complications LAURA Smiley 12/08/2023 E11.21 Type 2 diabetes mellitus with diabetic nephropathy LAURA Smiley 12/08/2023 I10 Essential hypertension LAURA Cat 12/08/2023 E78.00 Hypercholesterolemia LAURA Smiley Plan of Treatment Future Appointment(s):* 05/04/2024 10:45 am - LAURA Smiley at Main Office 12/08/2023 - LAURA Smiley* E11.9 Type 2 diabetes mellitus without complications * E11.21 Type 2 diabetes mellitus with diabetic nephropathy * I10 Essential hypertension * E78.00 Hypercholesterolemia* New Labs:* Lipid Panel, Ordered: 12/08/23 * Hemoglobin A1c, Ordered: 12/08/23 Functional Status Description No Information Available Mental Status Description No Information Available Referrals Description No Information Available
--- OUTSIDE RECORDS SUMMARY | 2024-03-28 11:19 | XMS_ITS | Clinical Summary ---
Author Organization Unknown Care Team Providers Care Wildland Fire Fighter Name Role Phone EDISON PATEL Unavailable Carlie THOMPSON RN, ANN Unavailable Unavailable RN, MED Unavailable Unavailable Payers Payer Name Policy Type Policy Number Effective Date Expira tion Date MEDICARE.NGS.PDGM [id number] Problems Condition Name Condition Details Condition Category Status Onset Date Resolution Date Last Treatment Date Treating Clinician Comments MALIG NEOPLM OF UPPER-OUTER QUADRANT OF RIGHT FEMALE BREAST Active 06-09 00:00: 00 HYPERTENSIVE CHRONIC KIDNEY DISEASE W STG 1-4/UNSP CHR KDNY Active 04-12 00:00: 00 TYPE 2 DIABETES MELLITUS W DIABETIC CHRONIC KIDNEY DISEASE Active 04-12 00:00: 00 CHRONIC KIDNEY DISEASE, UNSPECIFIED Active 04-12 00:00: 00 SCIATICA, UNSPECIFIED SIDE Active 04-12 00:00: 00 ESTROGEN RECEPTOR POSITIVE STATUS [ER+] Active 10-08 00:00: 00 PRESSURE WASHER (CURRENT) USE OF ORAL HYPOGLYCEMIC DRUGS Active 10-08 00:00: 00 Allergies, Adverse Reactions, Alerts Allergy Name Allergy Type Status Severity Reaction(s) Onset Date Inactive Date Treating Clinician Comments CODEINE Propensity to adverse reactions Active 2021-10 09:35:0 8 Medications Ordered Medication Name Filled Medication Name Start Date Stop Date Current Medication? Ordering Clinician Indication Dosage Frequency Signature (SIG) Comments Components Acetaminoph en Extra Strength 500 mg tablet 10-14 00:00: 00 Yes [id number] PAIN 2 tablet EVERY 8 HOURS 2 tablet EVERY 8 HOURS (route: oral) Med Classific ation: Analgesic , Anti-infl ammatory or Antipyret ic amlodipine 10 mg tablet 10-14 00:00: 00 Yes [id number] CARDIAC 1 tablet BEDTIME 1 tablet BEDTIME (route: oral) Med Classific ation: Cardiovas cular Therapy Agents anastrozole 1 mg tablet 10-14 00:00: 00 Yes [id number] BREAST CANCER 1 tablet DAILY 1 tablet DAILY (route: oral) Med Classific ation: Antineopl astics atorvastati n 40 mg tablet 10-14 00:00: 00 Yes [id number] CHOLESTEROL 1 tablet BEDTIME 1 tablet BEDTIME (route: oral) Med Classific ation: Cardiovas cular Therapy Agents clonidine HCl 0.1 mg tablet 10-14 00:00: 00 Yes [id number] HTN 1 tablet 2 TIMES DAILY 1 tablet 2 TIMES DAILY (route: oral) Med Classific ation: Cardiovas cular Therapy Agents ferrous sulfate 325 mg (65 mg iron) tablet 10-14 00:00: 00 Yes [id number] SUPPLEMENT 1 tablet DAILY 1 tablet DAILY (route: oral) Med Classific ation: Electroly te Balance-N utritiona l Products losartan 25 mg tablet 10-14 00:00: 00 Yes [id number] HTN 2 tablet 2 TIMES DAILY 2 tablet 2 TIMES DAILY (route: oral) Med Classific ation: Cardiovas cular Therapy Agents metformin 500 mg tablet 10-14 00:00: 00 Yes [id number] DIABETES 1 tablet 2 TIMES DAILY 1 tablet 2 TIMES DAILY (route: oral) Med Classific ation: Endocrine multivitami n with iron-minera l tablet 10-14 00:00: 00 Yes [id number] SUPPLEMENT 1 tablet DAILY 1 tablet DAILY (route: oral) Med Classific ation: Electroly te Balance-N utritiona l Products nebivolol 20 mg tablet 10-14 00:00: 00 Yes [id number] HTN 1 tablet DAILY 1 tablet DAILY (route: oral) Med Classific ation: Cardiovas cular Therapy Agents tolterodine ER 4 mg capsule,ext ended release 24 hr 10-14 00:00: 00 Yes [id number] BLADDER SPASM 1 capsule DAILY 1 capsule DAILY (route: oral) Med Classific ation: Genitouri nary Therapy tramadol 50 mg tablet 10-14 00:00: 00 Yes [id number] PAIN 1 tablet EVERY 6 HOURS 1 tablet EVERY 6 HOURS (route: oral) Med Classific ation: Analgesic , Anti-infl ammatory or Antipyret ic Trulicity 0.75 mg/0.5 mL subcutaneou s pen injector 10-14 00:00: 00 Yes [id number] DIABETES 0.5 mL WEEKLY 0.5 mL WEEKLY (route: subcutaneo us) Med Classific ation: Endocrine Vitamin D3 125 mcg (5,000 unit) tablet 10-14 00:00: 00 Yes [id number] SUPPLEMENT 1 tablet DAILY 1 tablet DAILY (route: oral) Med Classific ation: Electroly te Balance-N utritiona l Products dexamethaso ne 4 mg tablet 12-23 00:00: 00 Yes [id number] INFLAMMATIO N 2 tablet 2 TIMES DAILY 2 tablet 2 TIMES DAILY (route: oral) Med Classific ation: Endocrine ondansetron HCl 8 mg tablet 12-23 00:00: 00 Yes [id number] NAUSEA 1 tablet EVERY 8 HOURS 1 tablet EVERY 8 HOURS (route: oral) Med Classific ation: Gastroint estinal Therapy Agents prochlorper azine maleate 10 mg tablet 12-23 00:00: 00 Yes [id number] NAUSEA 1 tablet EVERY 6 HOURS 1 tablet EVERY 6 HOURS (route: oral) Med Classific ation: Gastroint estinal Therapy Agents melatonin 1 mg tablet 2021-04 00:00: 00 Yes [id number] SLEEP 5 mg BEDTIME 5 mg BEDTIME (route: oral) Med Classific ation: Central Nervous System Agents insulin aspart (U-100) 100 unit/mL (3 mL) subcutaneou s pen 2021-04 00:00: 00 Yes [id number] DM Per instruc tions 2 TIMES DAILY Per instructio ns 2 TIMES DAILY (route: subcutaneo us) Med Classific ation: Endocrine insulin glargine (U-100) 100 unit/mL (3 mL) subcutaneou s pen 2021-04 00:00: 00 Yes [id number] DM 10 unit BEDTIME 10 unit BEDTIME (route: subcutaneo us) Med Classific ation: Endocrine melatonin 1 mg tablet 04-12 00:00: 00 Yes [id number] MAINTENANCE 5 mg DAILY 5 mg DA WHIT (route: oral) Med Classific ation: Central Nervous System Agents Immunizations Ordered Immunization Name Filled Immunization Name Date Status Comments Refusal Reason BOOSTER -COVID-19 VACCINE, COVID-19 VACCINE 2021-08-28 00:00:00 BOOSTER -COVID-19 VACCINE, COVID-19 VACCINE 2021-02-03 00:00:00 INFLUENZA, TIV (INACTIVATED) 2021-01-29 00:00:00 DOSE #2, COVID-19 VACCINE 2020-08-01 00:00:00 DOSE #1, COVID-19 VACCINE 2020-07-07 00:00:00 Vital Signs Vital Name Observation Time Observation Value Commen ts Temperature 2022-06-17 09:32:00.000 98.2 [degF] Pulse 2022-06-17 09:32:00.000 72 /min Respirations 2022-06-17 09:32:00.000 16 /min Systolic Blood Pressure 2022-06-17 09:32:00.000 128 mm [Hg] Diastolic Blood Pressure 2022-06-17 09:32:00.000 76 mm [Hg] Plan of Treatment Planned Activity Planned Date Details Comments Future Scheduled Test AGENCY MAY PERFORM A RESUMPTION OF CARE VISIT FOLLOWING ANY HOSPITAL ADMISSION. PHYSICAL THERAPY TO EVALUATE, ASSESS AND MONITOR, PROVIDE SKILLED THERAPEUTIC INTERVENTION, ACTIVITY, EDUCATION, AND TRAINING TO ADDRESS: [code = AGENCY MAY PERFORM A RESUMPTION OF CARE VISIT FOLLOWING ANY HOSPITAL ADMISSION. PHYSICAL THERAPY TO EVALUATE, ASSESS AND MONITOR, PROVIDE SKILLED THERAPEUTIC INTERVENTION, ACTIVITY, EDUCATION, AND TRAINING TO ADDRESS:] Future Scheduled Test TRANSFER T RAINING (PT) [code = TRANSFER TRAINING (PT)] Future Scheduled Test GAIT TRAIN ING (PT) [code = GAIT TRAINING (PT)] Future Scheduled Test STAIR JESSICA JOSE L (PT) [code = STAIR TRAINING (PT)] Future Scheduled Test NEUROMUSCU LAR RE-EDUCATION / BALANCE RETRAINING (PT) [code = NEUROMUSCULAR RE-EDUCATION / BALANCE RETRAINING (PT)] Future Scheduled Test THERAPEUTI C EXERCISES (PT) [code = THERAPEUTIC EXERCISES (PT)] Future Scheduled Test IDENTIFY F ALL RISK FACTORS AND ESTABLISH HOME EXERCISE PROGRAM TO MINIMIZE FALL RISK. MAY TEACH THE PATIENT FLOOR RECOVERY WHEN CLINICALLY APPROPRIATE (PT) [code = IDENTIFY FALL RISK FACTORS AND ESTABLISH HOME EXERCISE PROGRAM TO MINIMIZE FALL RISK. MAY TEACH THE PATIENT FLOOR RECOVERY WHEN CLINICALLY APPROPRIATE (PT)] Future Scheduled Test OXYGEN SAT URATION (PT). NOTIFY MD IF 02SATS BELOW 90% AFTER 10 MIN OF REST. [code = OXYGEN SATURATION (PT). NOTIFY MD IF 02SATS BELOW 90% AFTER 10 MIN OF REST.] Future Scheduled Test PHYSICAL T HERAPY TO INSTRUCT PATIENT/CAREGIVER ON RISK FOR HOSPITALIZATION/EMERGENCY ROOM VISITS, TEACH SIGNS AND SYMPTOMS THAT PUT PATIENT AT RISK, WHEN TO NOTIFY NURSE/PHYSICIAN OF COMPLICATIONS/DECLINE, AND WHEN TO CALL 911. [code = PHYSICAL THERAPY TO INSTRUCT PATIENT/CAREGIVER ON RISK FOR HOSPITALIZATION/EMERGENCY ROOM VISITS, TEACH SIGNS AND SYMPTOMS THAT PUT PATIENT AT RISK, WHEN TO NOTIFY NURSE/PHYSICIAN OF COMPLICATIONS/DECLINE, AND WHEN TO CALL 911.] Goal 2021-12-09 Patient Goal - R ETURN TO NORMAL, MOM HOME WITH OR Goal 2022-02-10 Patient Goal - R ETURN TO NORMAL, MOM HOME WITH OR Goal 2022-04-07 Patient Goal - R ETURN TO NORMAL, MOM HOME WITH OR Goal 2022-06-09 Patient Goal - R ETURN TO NORMAL, MOM HOME WITH OR Goal 2022-06-17 Patient Goal - R ETURN TO NORMAL, MOM HOME WITH OR Goal Provider Goal - PATIENT WILL IMPROVE HOUSEHOLD TRANSFERS FROM SUPERVISION TO INDEPENDENT IN 4 WEEKS TO PROMOTE IMPROVED FUNCTIONAL MOBILITY. Goal Provider Goal - PATIENT WILL IMPROVE HOUSEHOLD AMBULATION AND STAIRS FROM SUPERVISION / SBA TO INDEPENDENT IN 8 WEEKS WITHOUT AD USE TO ALLOW SAFE NAVIGATION THROUGHOUT HOME AND COMMUNITY Goal Provider Goal - PATIENT WILL IMPROVE TUG AND FOUR SQUARE STEP TEST FROM 15 TO 12 SECONDS AND 8 WEEKS TO PROMOTE IMPROVED BALANCE INPUT INTEGRATION Goal Provider Goal - PATIENT WILL DEMO INDEPENDENT AND CONSISTENT PERFORMANCE OF STANDING THERE EX AND BALANCE ACTIVITY IN 4 WEEKS TO PROMOTE AMALIA STABILITY AND ACTIVITY TOLERANCE Goal Provider Goal - PATIENT/CAREGIVER WILL DEMONSTRATE ADHERENCE TO FALL REDUCTION SELF MANAGEMENT TO MINIMIZE FALL RISK BY DISCHARGE. Goal Provider Goal - PATIENT WILL MAINTAIN OXYGEN SATURATION WITHIN PHYSICIAN ORDERED PARAMETERS THROUGHOUT EPISODE OF CARE Goal Provider Goal - PATIENT/CAREGIVER WILL VERBALIZE UNDERSTANDING OF SIGNS AND SYMPTOMS THAT PUT THE PATIENT AT RISK FOR HOSPITALIZATION /EMERGENCY ROOM VISITS, WHEN TO NOTIFY NURSE/PHYSICIAN OF COMPLICATIONS/DECLINE AND WHEN TO CALL 911. Reason for Visit INDEPENDENT IN THE HOME Encounters Start Date/Time End Date/Time Encounter Type Admission Type Attending [facility] Care Department Encounter ID Discharge Date Discharge Status Discharge Condition Discharge Reason Percent Goals Met 2021-10-14 00:00:00 2022-06-17 00:00:00 Outpatient RECERTIFIC MED VO [facility] [id number] 2022-06-17 00:00:00 DISCHARGE TO HOME OR SELF CARE INDEPENDEN T IN THE HOME HH ONLY - OUT PATIENT 72.73
== END 2024-03-28 11:34 | disposition home or self-care (01) ==
PROVIDERS: PCP Internal Medicine; Visit Provider Internal Medicine Nephrology
DX: N18.31 Chronic kidney disease, stage 3a (principal); I10 Essential (primary) hypertension; R80.8 Other proteinuria
CPT/HCPCS: 99214

== ENCOUNTER → 2024-03-28 10:50 | Outpatient (BNVA) | payer MEDICARE, OTHER, SELFPAY | PROVIDERS: PCP Internal Medicine; Visit Provider Internal Medicine Nephrology | DX: I12.9 Hypertensive chronic kidney disease with stage 1 through stage 4 chronic kidney disease, or unspecified chronic kidney disease (principal); N18.31 Chronic kidney disease, stage 3a; R80.8 Other proteinuria | CPT/HCPCS: 99212 ==

== ENCOUNTER 2024-06-27 10:30 | Outpatient (AMB) | payer MEDICARE, OTHER, SELFPAY ==
[2024-06-27 10:32] VITALS: BP 117/68; PULSE 91; O2SAT 98
--- NOTE | 2024-06-27 10:32 | HO.NEPHOV ---
Vital Signs 06/27/24 10:32 Height 5 ft 3 in BP 117/68 Blood Pressure Location Lt brachial Position Sitting Pulse 91 Pulse Source Pulse Oximeter Pulse Oximetry (%) 98 Oxygen Delivery Method Room Air Intake Visit Reasons: labs/FU 3 M-LVM Enamel Machine Operator Required: No Accompanied by: Self / Same As Patient Allergies codiene Allergy (Unknown, Uncoded 07/16/21 10:55) nausea and vomiting Do you need a note to return to daycare/school/sports/work: No HPI Comments Details: Kellee in follow-up of her chronic kidney disease and hypertension. She had right breast cancer and had been getting treatment from [facility]. She is on Abemaciclib. Her last serum creatinine is around 1.9. She is not taking the losartan. She is not on any SGLT2 i. Her blood sugar control is good. She does not have any chest pain, shortness of breath, proximal nocturnal dyspnea, orthopnea, pedal edema, hematuria or any other new systemic complaints. Her sister was on dialysis for 21/2 years in [place] ( ? lupus). [facility] Medical History Hypertension Hypercholesterolemia Diabetes mellitus Lobular carcinoma in situ At high risk for breast cancer Surgical History History of lumpectomy Family History Father Prostate cancer Diabetes HTN (hypertension) Mother Diabetes HTN (hypertension) Social History Household Members: Family and Friend(s) Household Members Other:: mom Housing: House Are you a primary animal care supervisor to a significant other at home: Yes Do you presently have visiting nurse or other home services: No Patient Tobacco Use Status: Never used Tobacco service: No Current occupational status: retired Review of Systems Const All systems reviewed & are unremarkable except as noted in HPI and below Physical Exam Const General: comfortable and no acute distress Orientation/consciousness: patient oriented x3 HEENT Head: Yes normocephalic Mouth: Normal oral and palatal mucosa present Eyes EOM: EOMs intact bilaterally Neck Neck: Yes supple Resp Auscultation: clear to auscultation bilaterally Cardio Jugular venous distension: no JVD Rate: regular rate GI Palpation (GI): Soft to palpation Auscultation: normal bowel sounds General: Yes no CVA tenderness Back/Spine/Pelvis Back: no CVA tenderness Skin General skin exam: no rashes or lesions noted Neuro General: patient oriented x3 and moves all extremities Extrem General: Yes no pedal edema Assessment & Plan Assessment & Plan (1) CKD (chronic kidney disease) stage 3, GFR 30-59 ml/min: Code(s): N18.30 - Chronic kidney disease, stage 3 unspecified Category: Medical Qualifiers: Chronic kidney disease stage 3 subtype: stage 3a (GFR 45-59) Qualified Code(s): N18.31 - Chronic kidney disease, stage 3a (2) Hypertension: Code(s): I10 - Essential (primary) hypertension Category: Medical Qualifiers: Hypertension type: primary hypertension Qualified Code(s): I10 - Essential (primary) hypertension (3) Proteinuria: Code(s): R80.9 - Proteinuria, unspecified Category: Medical Qualifiers: Proteinuria type: other Qualified Code(s): R80.8 - Other proteinuria Plan Kellee has 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 Her serum creatinine is stable . Her last serum creatinine is around 1.9. Her blood pressure is at goal. She is not taking any losartan. She is on Jardiance 10 mg daily, which I shall increase to 25 mg if possible. She can continue her current antihypertensive medication regimen. She is on chemotherapeutic agents. She needs to use her CPAP regularly. I did not make any other medication changes today. She does not need renal biopsy now . I shall do a 24 hour urine for cr cl later. Follow-up blood work ordered. Follow-up given Orders: Orders Complete Blood Count Auto Diff 3 Months I10 - Essential (primary) hypertension, N18.31 - Chronic kidney disease, stage 3a, R80.8 - Other proteinuria Calcium 3 Months I10 - Essential (primary) hypertension, N18.31 - Chronic kidney disease, stage 3a, R80.8 - Other proteinuria Creatinine 3 Months I10 - Essential (primary) hypertension, N18.31 - Chronic kidney disease, stage 3a, R80.8 - Other proteinuria Electrolytes 3 Months I10 - Essential (primary) hypertension, N18.31 - Chronic kidney disease, stage 3a, R80.8 - Other proteinuria Blood Urea Nitrogen 3 Months I10 - Essential (primary) hypertension, N18.31 - Chronic kidney disease, stage 3a, R80.8 - Other proteinuria Coding Level of Care Code Est Pt Level 4 (14143) Diagnoses Stage 3a chronic kidney disease N18.31 Chronic kidney disease stage 3 subtype: stage 3a (GFR 45-59) Primary hypertension I10 Hypertension type: primary hypertension Other proteinuria R80.8 Proteinuria type: other
--- OUTSIDE RECORDS SUMMARY | 2024-06-27 12:18 | XMS_ITS | Continuity of Care Document ---
Author Organization [facility] [address] [place] [address] Phone [phone] Care Team Providers Care Store Administrative Assistant Name Role Phone Alicia West M.D. Care Team Information Receiv er [phone] Problems Active Problems Provider Date Diabetes mellitus [...] SIG Qnty Indications Order ing Provider Date Dexcom G7 ReceiverDevice use for sugar reading dx e11.9 1units E11.9 Chio Waters M.D. 09/07/2023 Dexcom G7 SensorMisc use to check sugar dx e11.9 9units E11.9 Chio Waters M.D. 09/07/2023 Jwoahejzqux1pp Tablets 1 by mouth every day Kt Bird M.D. 08/06/2023 Atorvastatin Khshwvn06lh Tablets 1 Tab by mouth every day 90tabs Kt Bird M.D. 08/06/2023 Hvqa370(65Fe) mg Tablets 1 tab by mouth every day Kt Bird M.D. 12/08/2022 Syedqftj99ay Tablets bid Kevin Bird M.D. 07/02/2022 BD Pen Needle/Nadege/Ultra -Fine/32G X 4mm32G X 4 mm Misc 1 pen needle to insulin pen three times a day Dx: E11.9 300units E11.9 Kt Bird M.D. 02/03/2022 Amlodipine Kmznofjg8sv Tablets 1 by mouth every day Coleman Foote MD Clonidine HCL0.1mg Tablets 1 bid Unknown Tramadol EYH18qj Tablets take 1 tablet by mouth daily as needed 30tabs Alicia West M.D. Tolterodine Tartrate ER4mg Caps ER 24HR 1 by mouth every day Gomez French M.D. Ondansetron HCL8mg Tablets take as directed as needed for nausea Unknown Nebivolol QQM14mw Tablets 1 tab by mouth every day Unknown History Medications Trulicity1.5mg/0.5ML Solution Auto-Inject Administer 1.5 MG Under The Skin Every Week 6ml E11.21 Chio Waters M.D. 01/17/2024 - 06/22/2024 Vital Signs Date Vital Result Comment 12/08/2023 10:57am BP Systolic 114 mmHg BP Diastolic 78 mmHg Heart Rate 98 /min Height 63 inches 5'3 Weight 227.38 lb BMI (Body Mass Index) 40.3 kg/m2 Results Test Acquired Date Facility Test Result H/L Range N ote Glucose Fingerstick 05/04/2024 Inhouse Glucose Fingerstick 156 Glucose Fingerstick 12/08/2023 Inhouse Glucose Fingerstick 167 Glucose Fingerstick 08/06/2023 Inhouse Glucose Fingerstick 137 Hemoglobin A1c 08/06/2023 Inhouse Hemoglobin A1c 6.8% Glucose Fingerstick 04/02/2023 Inhouse Glucose Fingerstick 146 Hemoglobin A1c 03/16/20[address] [facility] [address] [address] Hemoglobin A1c <pending> Glucose Fasting Serum/Plasma 03/16/2023 [facility] [address] [place] [address] Glucose Fasting Serum/Plasma <pending> Lipid Panel 03/16/2023 [facility] [address] [place] [address] [phone] Cholesterol Total Mass/Vol <pending> Cholester/HDL Molecular Ratio <pending> High Density Lipoprotein <pending> LDL/HDL Mass Ratio <pending> LDL Cholesterol Mass/Vol <pending> Triglycerides Ser/Plas Mass/VL <pending> Glucose Fingerstick 12/08/2022 Inhouse Glucose Fingerstick 140 Medical Devices Description No Information Available Encounters Type Date Location Provider Dx Diagnosis Office Visit 05/04/2024 10:45a Main Office LAURA Smiley E11.21 Type 2 diabet es mellitus with diabetic nephropathy I10 Essential (primary) hypertension C50.911 Malignant neoplasm o f unsp site of right female breast Assessments Date Code Description Provider 05/04/2024 E11.21 Type 2 diabetes mellitus with diabetic nephropathy LAURA Smiley 05/04/2024 I10 Essential hypertension LAURA Cat 05/04/2024 C50.911 Carcinoma of breast LAURA Rosales Plan of Treatment Future Appointment(s):* 11/07/2024 10:45 am - LAURA Smiley at Main Office 05/04/2024 - LAURA Smiley* E11.21 Type 2 diabetes mellitus with diabetic nephropathy * I10 Essential hypertension * C50.911 Carcinoma of breast Functional Status Description No Information Available Mental Status Description No Information Available Referrals Description No Information Available
--- OUTSIDE RECORDS SUMMARY | 2024-06-27 12:18 | XMS_ITS | Clinical Summary ---
Author Organization [facility] Address [address] [facility] [address] [place] [address] Phone Care Team Providers Care Ice Cream Machine Operator Name Role Phone Alicia West MD Primary Care Provider [phone] Allergies Active Allergy Reactions Criticality Noted Date Comments Codeine Other (see comments) 05/22/2020 Medications Cholecalciferol 125 MCG (5000 UT) tablet Take 1 tablet by mouth 1 (one) time each day Active Dulaglutide (Trulicity) 0.75 MG/0.5ML solution pen-injector 1 pre-filled pen syringe 1 (one) time per week Active ferrous sulfate 325 (65 Fe) MG tablet Take 1 tablet by mouth 1 (one) time each day Active tolterodine LA (DETROL LA) 4 MG 24 hr capsule Take 1 capsule by mouth 1 (one) time each day Active Multiple Vitamin (MULTIVITAMIN ADULT PO) Take 1 tablet by mouth 1 (one) time each day Active nebivolol (BYSTOLIC) 20 MG tablet TAKE 1 TABLET DAILY 90 tablet 3 07/28/2022 Active cloNIDine (CATAPRES) 0.1 MG tablet TAKE 1 TABLET TWICE A DAY 180 tablet 3 09/10/2022 Active Verzenio 100 MG tablet Take 1 tablet by mouth 1 (one) time each day 08/31/2022 Active ondansetron (ZOFRAN) 8 MG tablet Take 8 mg by mouth every 8 (eight) hours if needed for nausea or vomiting Active letrozole (FEMARA) 2.5 MG chemo tablet Take by mouth 1 (one) time each day Take with or without food. Active amLODIPine (NORVASC) 5 MG tablet Take 1 tablet (5 mg total) by mouth 1 (one) time each day 30 tablet 3 01/14/2023 Active Active Problems Problem Noted Date Diagnosed Date Obese class II 12/02/2022 12/02/2022 Carcinoma of breast 02/04/2022 12/02/2022 Diabetes mellitus 02/04/2022 12/02/2022 Hypercholesterolemia 02/04/2022 12/02/2022 Malignant neoplasm of overlapping sites of breas t 11/05/2021 Overview (01/11/2024): Replacing diagnoses that were inactivated after the 01/11/24 Regulatory Import Hypertension 02/17/2021 Type 2 diabetes mellitus with diabetic nephropat hy 07/02/2020 Anemia of chronic disease 05/22/2020 Benign hypertensive renal disease 05/22/2020 Stage 3a chronic kidney disease 05/22/2020 Immunizations Name Administration Dates Next Due Influenza Split High Dose Preservative Free IM 1 Family History Medical History Relation Comments Cancer Father Diabetes Father Hypertension Father Stroke Father Diabetes Mother Heart disease Mother Hypertension Mother Relation Status Comments Father Alive Mother Alive Social History Tobacco Use Types Packs/Day Years Used Date Smoking Tobacco: Never Smokeless Tobacco: Never Tobacco Cessation:Counseling Given: Not Answered Alcohol Use Standard Drinks/Week Comments No 0 (1 standard drink = 0.6 oz pur e alcohol) Comments Unknown Sex and Gender Information Value Date Recorded Sex Assigned at Not on file Legal Sex Female 5:12 PM EST Gender Identity Not on file Sexual Orientation Not on file Last Filed Vital Signs Vital Sign Reading Time Taken Comments Blood Pressure 130/80 12/03/2022 2:13 PM EDT Pulse 87 09/09/2021 1:50 PM EDT Temperature - - Respiratory Rate - - Oxygen Saturation 97% 02/17/2021 2:02 PM EST Inhaled Oxygen Concentration - - Weight 86.2 kg (190 lb) 09/09/2021 1:50 PM EDT Height 162.6 cm (5' 4 ) 02/17/2021 2:02 PM EST Body Mass Index 32.61 02/17/2021 2:02 PM EST Plan of Treatment Health Maintenance Due Date Last Done Comments Pneumococcal Vaccine: 65+ Ye ars (1 of 2 - PCV) 1956 Diabetes: Ophthalmology Exam 07/02/2020 Diabetes: Pedal Pulse Checked 07/02/2020 Diabetes: Sensory Foot Exam 07/02/2020 Diabetes: Visual Foot Exam 07/02/2020 Diabetes: Hemoglobin A1C 09/10/2020 06/10/2020 Influenza Vaccine (#1) 2023 01/28/2022 Hepatitis B Vaccine Aged Out No longe r eligible based on patient's age to complete this topic Procedures Procedure Name Priority Date/Time Associated Diagnosis Comments EXT RESULT ENTRY Routine 06/10/2020 from Last 3 Months or Most Recently Relevant to Health Maintenance Results * (ABNORMAL) EXT RESULT ENTRY (06/10/2020) Hemoglobin 11.2(A) 12.0 - 16.0 Hematocrit 35.4(A) 36.0 - 46.0 Platelets 180 150 - 399 10*3/UL Sodium 142 137 - 147 Potassium 3.7 3.4 - 5.5 Chloride 108 99 - 108 Bicarbonate (CO2) 24 22 - 30 mmol/L Anion Gap 10 <=30 MMOL/L BUN 11 4 - 21 mg/dL Creatinine 1.13(A) 0.50 - 1.10 mg/dL Calcium 9.5 8.7 - 10.7 mg/dL Phosphorus, Serum 3.3 eGFR Non-Afr [place] 47 Hemoglobin A1C 6.0 4.0 - 6.0 Alb/Creat Ratio, Ur 181.50 mg/g Creat 06/10/2020 Historical Provider LAB BLOOD ORDERABLES Cierra l Result from Last 3 Months or Most Recently Relevant to Health Maintenance Insurance [facility] MEDICARE [facility] MEDICARE Care Teams Ice Cream Machine Operator Relationship Specialty Start Date End Date Alicia West MD [address] [place] [address] [place] [address] PCP - General 04/22/20
== END 2024-06-27 10:59 | disposition home or self-care (01) ==
LOC: HO.HKAS 10:31
PROVIDERS: PCP Internal Medicine; Visit Provider Internal Medicine Nephrology
DX: N18.31 Chronic kidney disease, stage 3a (principal); I10 Essential (primary) hypertension; R80.8 Other proteinuria
CPT/HCPCS: 99214

== ENCOUNTER → 2024-06-27 10:30 | Outpatient (BNVA) | payer MEDICARE, OTHER, SELFPAY | PROVIDERS: PCP Internal Medicine; Visit Provider Internal Medicine Nephrology | DX: I12.9 Hypertensive chronic kidney disease with stage 1 through stage 4 chronic kidney disease, or unspecified chronic kidney disease (principal); N18.31 Chronic kidney disease, stage 3a; R80.8 Other proteinuria | CPT/HCPCS: 99212 ==

== ENCOUNTER 2024-09-27 09:42 | Outpatient (AMB) | payer MEDICARE, OTHER, SELFPAY ==
[2024-09-27 09:51] VITALS: BP 128/82; PULSE 82; O2SAT 97
--- NOTE | 2024-09-27 09:51 | A.OFFVIS_ITS ---
Vital Signs 09/27/24 09:51 Height 5 ft 3 in BP 128/82 Blood Pressure Location Lt brachial Position Sitting Pulse 82 Pulse Source Pulse Oximeter Pulse Oximetry (%) 97 Oxygen Delivery Method Room Air Intake Visit Reasons: Follow Up Hearings Reporter Required: No Accompanied by: Self / Same As Patient Allergies codiene Allergy (Unknown, Uncoded 07/16/21 10:55) nausea and vomiting Medication List - Last Reconciled 09/27/24 by SAUL Story amlodipine 5 mg PO DAILY atorvastatin 20 mg PO DAILY blood pressure test kit-large As directed blood pressure test kit-large As directed clonidine HCl 0.1 mg PO BID empagliflozin (Jardiance) 10 mg PO DAILY estradiol 0.01%(0.1mg/gram) 1 g vaginal Q OTHER DAY ferrous sulfate (Iron (ferrous sulfate)) 325 mg PO DAILY multivitamin 1 tab PO DAILY nebivolol (Bystolic) 20 mg PO BEDTIME ondansetron HCl 8 mg PO TID PRN tirzepatide (Mounjaro) 2.5 mg subcut QWEEK tolterodine ER (Detrol LA) 4 mg PO DAILY tramadol 50 mg PO Q6H PRN HPI Comments Details: 74-yr-old female presents for re-establish care for management of her TYSHAWN. Pt was last seen by this health technical writer, 05/05/2021. Pt had not had f/u d/t undergoing breast CA tx through [facility]- s/p lumpectomy, and just completed her course of Abemaciclib. She is compliant w/ Anastrazole. She is still followed closely by nephrology for HTN and CKD- recently advised to increase her Jardiance to optimize renal function. Pt reports she has not used her CPAP in a few years as it had broken but was not eligible for a replacement machine until this year. Pt reports she continues to snore, have frequent arousals, unrefreshing sleep, and daytime sleepiness. [facility] Medical History Hypertension Hypercholesterolemia Diabetes mellitus Lobular carcinoma in situ At high risk for breast cancer Surgical History History of lumpectomy Family History Father Prostate cancer Diabetes HTN (hypertension) Mother Diabetes HTN (hypertension) Social History Household Members: Family and Friend(s) Household Members Other:: mom Housing: House Are you a primary day care provider to a significant other at home: Yes Do you presently have visiting nurse or other home services: No Patient Tobacco Use Status: Never used Tobacco service: No Current occupational status: retired Physical Exam Vital Signs: Last Vital Signs Pulse 82 09/27/24 09:51 BP 128/82 09/27/24 09:51 Pulse Ox 97 09/27/24 09:51 Oxygen Delivery Method Room Air 09/27/24 09:51 Const General: no acute distress Orientation/consciousness: patient oriented x3 Resp Effort & Inspection: able to speak in complete sentences Neuro General: patient oriented x3 Psych Mental Status: mental status grossly normal Speech and movement: Clear speech present Attitude: cooperative Assessment & Plan Assessment & Plan (1) Obstructive sleep apnea hypopnea, moderate: Comment: 01/13/2013, AHI 19/hr w/ O2 anthony 86%. Code(s): G47.33 - Obstructive sleep apnea (adult) (pediatric) Category: Medical Plan Pt is advised to undergo in-lab PSG to assess status of her sleep apnea- as patient has lost greater than 10% of her body weight since the last in-lab sleep study (current weight 169, weight at time of last sleep study 225 lb) Orders: Orders RT PSG in-lab sleep study Today G47.33 - Obstructive sleep apnea (adult) (pediatric) Medications: New anastrozole 1 mg PO DAILY Coding Level of Care Code New Pt Level 3 (71161) Diagnoses Obstructive sleep apnea hypopnea, moderate G47.33 [place] Sleepiness Scale Questions Sitting and reading: high chance of dozing Watching TV: high chance of dozing Sitting inactive in a theater, movie etc.: slight chance of dozing As a passenger in a car for an hour without break: high chance of dozing Lying down in the afternoon when circumstances permit: high chance of dozing Sitting and talking to someone: would never doze Sitting quietly after lunch without alcohol: high chance of dozing In a car, while stopped for a few minutes in the traffic: would never doze ESS < 10: normal, ESS > 12: pathologic: 16
--- OUTSIDE RECORDS SUMMARY | 2024-09-27 10:44 | XMS_ITS | Clinical Summary ---
Author Organization [facility] Address [address] [facility] [address] [place] [address] Phone Care Team Providers Care Stem Assembler Name Role Phone Alicia West MD Primary Care Provider [phone] Allergies Active Allergy Reactions Criticality Noted Date [...] Stage 3a chronic kidney disease 05/22/2020 Immunizations Immunization Administration Dates Next Due Influenza Split High [...] Due Date Last Done Comments Pneumococcal Vaccine: 50+ Ye ars (1 of 2 - PCV) 1969 Diabetes: Ophthalmology Exam 07/02/2020 Diabetes: Pedal Pulse Checked 07/02/2020 Diabetes: Sensory Foot Exam 07/02/2020 Diabetes: Visual Foot Exam 07/02/2020 Diabetes: Hemoglobin A1C 09/10/2020 06/10/2020 Influenza Vaccine (Season Ended) 2024 01/29/20 22 Hepatitis B Vaccine Aged Out No longe [...] 10.7 mg/dL Phosphorus, Serum 3.3 eGFR Non-Afr Nepalese 47 Hemoglobin A1C 6.0 4.0 - 6.0 Alb/Creat Ratio, Ur 181.50 mg/g Creat 06/10/2020 Historical Provider LAB BLOOD ORDERABLES Cierra l Result from Last 3 Months or Most Recently Relevant to Health Maintenance Insurance [facility] Health Medicare [facility] Medicare Care Teams Stem Assembler Relationship Specialty Start Date End Date Alicia West MD [address] [place] [address] [place] [address] PCP - General 04/22/20
== END 2024-09-27 11:11 | disposition home or self-care (01) ==
LOC: HO.HSMS 09:43
PROVIDERS: PCP Internal Medicine; Visit Provider Nurse Practitioner Family
DX: G47.33 Obstructive sleep apnea (adult) (pediatric) (principal)
CPT/HCPCS: 99203

== ENCOUNTER → 2024-09-27 09:42 | Outpatient (BNVA) | payer MEDICARE, OTHER, SELFPAY | PROVIDERS: PCP Internal Medicine; Visit Provider Nurse Practitioner Family | DX: G47.33 Obstructive sleep apnea (adult) (pediatric) (principal) | CPT/HCPCS: 99202 ==

== ENCOUNTER 2024-10-03 10:21 | Outpatient (AMB) | payer MEDICARE, OTHER, SELFPAY ==
--- NOTE | 2024-10-03 11:02 | HO.NEPHOV_ITS ---
Vital Signs 10/03/24 11:03 Height 5 ft 3 in BP 100/60 Blood Pressure Location Lt brachial Position Sitting Pulse 62 Pulse Source Pulse Oximeter Pulse Oximetry (%) 98 Oxygen Delivery Method Room Air Intake Visit Reasons: labs/FU 3 mo-LVM Intake Note: Patient here for follow-up. Accompanied by: Self / Same As Patient Allergies codiene Allergy (Mild, Uncoded 10/03/24 11:08) nausea and vomiting Do you need a note to return to daycare/school/sports/work: No HPI Comments Details: Kellee in follow-up of her chronic kidney disease and hypertension. She had right breast cancer and had been getting treatment from [facility]. Her last serum creatinine is around 1.5. She is not taking the losartan. She is not on any SGLT2 i. Her blood sugar control is good. She does not have any chest pain, shortness of breath, proximal nocturnal dyspnea, orthopnea, pedal edema, hematuria or any other new systemic complaints. Her sister was on dialysis for 21/2 years in [place] ( ? lupus). [facility] Medical History Hypertension Hypercholesterolemia Diabetes mellitus Lobular carcinoma in situ At high risk for breast cancer Surgical History History of lumpectomy Family History Father Prostate cancer Diabetes HTN (hypertension) Mother Diabetes HTN (hypertension) Social History Household Members: Family and Friend(s) Household Members Other:: mom Housing: House Are you a primary ambulatory care coordinator to a significant other at home: Yes Do you presently have visiting nurse or other home services: No Patient Tobacco Use Status: Never used Tobacco service: No Current occupational status: retired Review of Systems Const All systems reviewed & are unremarkable except as noted in HPI and below Physical Exam Vital Signs: Last Vital Signs Pulse 62 10/03/24 11:03 BP 100/60 10/03/24 11:03 Pulse Ox 98 10/03/24 11:03 Oxygen Delivery Method Room Air 10/03/24 11:03 Const General: comfortable and no acute distress Orientation/consciousness: patient oriented x3 HEENT Head: Yes normocephalic Mouth: Normal oral and palatal mucosa present Eyes EOM: EOMs intact bilaterally Neck Neck: Yes supple Resp Auscultation: clear to auscultation bilaterally Cardio Jugular venous distension: no JVD Rate: regular rate GI Palpation (GI): Soft to palpation Auscultation: normal bowel sounds General: Yes no CVA tenderness Back/Spine/Pelvis Back: no CVA tenderness Skin General skin exam: no rashes or lesions noted Neuro General: patient oriented x3 and moves all extremities Extrem General: Yes no pedal edema Assessment & Plan Assessment & Plan (1) Hypertension: Code(s): I10 - Essential (primary) hypertension Category: Medical Qualifiers: Hypertension type: primary hypertension Qualified Code(s): I10 - Essen tial (primary) hypertension (2) CKD (chronic kidney disease) stage 3, GFR 30-59 ml/min: Code(s): N18.30 - Chronic kidney disease, stage 3 unspecified Category: Medical Qualifiers: Chronic kidney disease stage 3 subtype: stage 3a (GFR 45-59) Qualified Code(s): N18.31 - Chronic kidney disease, stage 3a (3) Proteinuria: Code(s): R80.9 - Proteinuria, unspecified Category: Medical Qualifiers: Proteinuria type: other Qualified Code(s): R80.8 - Other proteinuria Plan Kellee has 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 Her serum creatinine is better. Her blood pressure is at goal. She is not taking any losartan. She is on Jardiance 10 mg daily, which I shall increase to 25 mg if possible. She can continue her current antihypertensive medication regimen. She needs to use her CPAP regularly. I did not make any other medication changes today. She does not need renal biopsy now . I shall do a 24 hour urine for cr cl later. Follow-up blood work ordered. Follow-up given Orders: Orders Blood Urea Nitrogen 4 Months I10 - Essential (primary) hypertension, N18.31 - Chronic kidney disease, stage 3a, R80.8 - Other proteinuria Creatinine 4 Months I10 - Essential (primary) hypertension, N18.31 - Chronic kidney disease, stage 3a, R80.8 - Other proteinuria Calcium 4 Months I10 - Essential (primary) hypertension, N18.31 - Chronic kidney disease, stage 3a, R80.8 - Other proteinuria Protein Creatinine Ratio, Ur 4 Months I10 - Essential (primary) hypertension, N18.31 - Chronic kidney disease, stage 3a, R80.8 - Other proteinuria Electrolytes 4 Months I10 - Essential (primary) hypertension, N18.31 - Chronic kidney disease, stage 3a, R80.8 - Other proteinuria Coding Level of Care Code Est Pt Level 4 (00934) Diagnoses Primary hypertension I10 Hypertension type: primary hypertension Stage 3a chronic kidney disease N18.31 Chronic kidney disease stage 3 subtype: stage 3a (GFR 45-59) Other proteinuria R80.8 Proteinuria type: other
[2024-10-03 11:03] VITALS: BP 100/60; PULSE 62; O2SAT 98
--- OUTSIDE RECORDS SUMMARY | 2024-10-03 11:30 | XMS_ITS | Clinical Summary ---
Author Organization [facility] Address [address] [facility] [address] [place] [address] Phone Care Team Providers Care Coremaker Name Role Phone Alicia West MD Primary Care Provider [phone] Allergies Active Allergy Reactions Criticality Noted Date [...] 10.7 mg/dL Phosphorus, Serum 3.3 eGFR Non-Afr Central African 47 Hemoglobin A1C 6.0 4.0 - 6.0 Alb/Creat Ratio, Ur 181.50 mg/g Creat 06/10/2020 Historical Provider LAB BLOOD ORDERABLES Cierra l Result from Last 3 Months or Most Recently Relevant to Health Maintenance Insurance [facility] Medicare [facility] Medicare Care Teams Coremaker Relationship Specialty Start Date End Date Alicia West MD [address] [place] [address] [place] [address] PCP - General 04/22/20
== END 2024-10-03 11:25 | disposition home or self-care (01) ==
LOC: HO.HKAS 10:22
PROVIDERS: PCP Internal Medicine; Visit Provider Internal Medicine Nephrology
DX: I10 Essential (primary) hypertension (principal); N18.31 Chronic kidney disease, stage 3a; R80.8 Other proteinuria
CPT/HCPCS: 99214

== ENCOUNTER → 2024-10-03 10:21 | Outpatient (BNVA) | payer MEDICARE, OTHER, SELFPAY | PROVIDERS: PCP Internal Medicine; Visit Provider Internal Medicine Nephrology | DX: I12.9 Hypertensive chronic kidney disease with stage 1 through stage 4 chronic kidney disease, or unspecified chronic kidney disease (principal); N18.31 Chronic kidney disease, stage 3a; R80.8 Other proteinuria | CPT/HCPCS: 99212 ==

== ENCOUNTER 2025-02-08 10:21 | Outpatient (AMB) | payer MEDICARE, OTHER, SELFPAY ==
--- NOTE | 2025-02-08 10:44 | HO.NEPHOV ---
Vital Signs 02/08/25 10:45 Height 5 ft 3 in BP 122/70 Blood Pressure Location Lt brachial Position Sitting Pulse 72 Pulse Source Pulse Oximeter Pulse Oximetry (%) 99 Oxygen Delivery Method Room Air Intake Visit Reasons: 4 mnts f/u-LVM Maple Products Maker Required: No Accompanied by: Self / Same As Patient Allergies codiene Allergy (Mild, Uncoded 10/03/24 11:08) nausea and vomiting HPI Comments Details: Kellee in follow-up of her chronic kidney disease and hypertension. She had right breast cancer and had been getting treatment from [facility]. Her last serum creatinine is around 1.25. She is not taking the losartan. She is not on any SGLT2 i. Her blood sugar control is good. She does not have any chest pain, shortness of breath, proximal nocturnal dyspnea, orthopnea, pedal edema, hematuria or any other new systemic complaints. Her sister was on dialysis for 21/2 years in [place] ( ? lupus). [facility] Medical History Hypertension Hypercholesterolemia Diabetes mellitus Lobular carcinoma in situ At high risk for breast cancer Surgical History History of lumpectomy Family History Father Prostate cancer Diabetes HTN (hypertension) Mother Diabetes HTN (hypertension) Social History Household Members: Family and Friend(s) Household Members Other:: mom Housing: House Are you a primary foster care worker to a significant other at home: Yes Do you presently have visiting nurse or other home services: No Patient Tobacco Use Status: Never used Tobacco service: No Current occupational status: retired Review of Systems Const All systems reviewed & are unremarkable except as noted in HPI and below Physical Exam Vital Signs: Last Vital Signs Pulse 72 02/08/25 10:45 BP 122/70 02/08/25 10:45 Pulse Ox 99 02/08/25 10:45 Oxygen Delivery Method Room Air 02/08/25 10:45 Const General: comfortable and no acute distress Orientation/consciousness: patient oriented x3 HEENT Head: Yes normocephalic Mouth: Normal oral and palatal mucosa present Eyes EOM: EOMs intact bilaterally Neck Neck: Yes supple Resp Auscultation: clear to auscultation bilaterally Cardio Jugular venous distension: no JVD Rate: regular rate GI Palpation (GI): Soft to palpation Auscultation: normal bowel sounds General: Yes no CVA tenderness Back/Spine/Pelvis Back: no CVA tenderness Skin General skin exam: no rashes or lesions noted Neuro General: patient oriented x3 and moves all extremities Extrem General: Yes no pedal edema Assessment & Plan Assessment & Plan (1) CKD (chronic kidney disease) stage 3, GFR 30-59 ml/min: Code(s): N18.30 - Chronic kidney disease, stage 3 unspecified Category: Medical Qualifiers: Chronic kidney disease stage 3 subtype: stage 3a (GFR 45-59) Qualified Code(s): N18.31 - Chronic kidney disease, stage 3a (2) Proteinuria: Code(s): R80.9 - Proteinuria, unspecified Category: Medical Qualifiers: Proteinuria type: other Qualified Code(s): R80.8 - Other proteinuria (3) Hypertension: Code(s): I10 - Essential (primary) hypertension Category: Medical Qualifiers: Hypertension type: primary hypertension Qualified Code(s): I10 - Essential (primary) hypertension Plan Kellee has 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 Her serum creatinine is better. Her blood pressure is at goal. She is not taking any losartan. She is on Jardiance 10 mg daily, which I shall increase to 25 mg if possible. She can continue her current antihypertensive medication regimen. I did not make any other medication changes today. She does not need renal biopsy now . I shall do a 24 hour urine for cr cl later. Follow-up blood work ordered. Follow-up given Orders: Orders Electrolytes 4 Months I10 - Essential (primary) hypertension, N18.31 - Chronic kidney disease, stage 3a, R80.8 - Other proteinuria Creatinine 4 Months I10 - Essential (primary) hypertension, N18.31 - Chronic kidney disease, stage 3a, R80.8 - Other proteinuria Blood Urea Nitrogen 4 Months I10 - Essential (primary) hypertension, N18.31 - Chronic kidney disease, stage 3a, R80.8 - Other proteinuria Protein Creatinine Ratio, Ur 4 Months I10 - Essential (primary) hypertension, N18.31 - Chronic kidney disease, stage 3a, R80.8 - Other proteinuria Coding Level of Care Code Est Pt Level 4 (01100) Diagnoses Stage 3a chronic kidney disease N18.31 Chronic kidney disease stage 3 subtype: stage 3a (GFR 45-59) Other proteinuria R80.8 Proteinuria type: other Primary hypertension I10 Hypertension type: primary hypertension
[2025-02-08 10:45] VITALS: BP 122/70; PULSE 72; O2SAT 99
--- OUTSIDE RECORDS SUMMARY | 2025-02-08 12:32 | XMS_ITS | Encounter Summary ---
Author Organization [facility] Address [address] [place] [address] Phone Care Team Providers Care Supervisor Pit And Auxiliaries Name Role Phone Alicia West MD Primary Care Provider [phone] Steve Machado DC Unavailable Cailin Garner Unavailable [email or web address] Becca Patel RN Unavailable Sissy Aguilar RN Unavailable [email or web address] Tri Tyler CLINICAL RESOURCE MANAGER Unavailable Nayana Machado MD Unavailable [phone] Kt Bird MD Unavailable [phone] Qamar Cee MD Unavailable Encounter Details Date Type Department Care Team (Late st Contact Info) Description 06/08/2022 Procedure Pass [facility], Mammography [address] [id number] Social History Tobacco Use Types Packs/Day Years Used Date Smoking Tobacco: Never Smokeless Tobacco: Never Alcohol Use Standard Drinks/Week Comments Never 0 (1 standard drink = 0.6 oz pur e alcohol) Comments No Sex and Gender Information Value Date Recorded Sex Assigned at Female 03/06/2023 5:38 PM EST Legal Sex Female 11:13 AM EDT Gender Identity Female 03/06/2023 5:38 PM EST Sexual Orientation Straight 03/06/2023 5: 38 PM EST documented as of this encounter Plan of Treatment Upcoming Encounters Date Type Department Care Team (Late st Contact Info) Description 11/22/2024 Procedure Pass [facility] Informatics Clinical Analyst Center [address] [facility] [address] [place] [address] 02/28/2025 1:30 PM EST Blood Draw Laboratory Services, [facility] at [address] [address] Nayana Machado MD [address] [place] [phone] [email or web address] 02/28/2025 2:30 PM EST Office Visit Center for Breast Oncology, [facility] [place] [facility], [facility] at [address] [address] Nayana Machado MD [address] [place] [phone] [email or web address] 02/28/2025 3:30 PM EST Infusion Infusion Therapy Services South, [facility] [place] at [address] [address] Nayana Machado MD [address] [place] [phone] [email or web address] 06/13/2025 11:00 AM EST Telemedicine [facility] Medical Weight Management [address] [address] Krystle Avalos MD [address] [place] [address] [email or web address] 06/27/2025 2:00 PM EDT Appointment [facility] Informatics Clinical Analyst Center [address] [facility] [address] [place] [address] Ayan Stein, PERSONAL LINES APPRAISER [address] [place] [address] [email or web address] 06/27/2025 3:30 PM EDT Office Visit [facility] for Breast Oncology, [facility] [place] [facility], [facility] [place] [address] [facility] 4th [place] [address] Ayan Stein, PERSONAL LINES APPRAISER [address] [place] [address] [email or web address] documented as of this encounter Visit Diagnoses Not on filedocumented in this encounter Care Teams Supervisor Pit And Auxiliaries Relationship Specialty Start Date End Date Alicia West MD [email or web address] PCP - General Internal Medicine 07/10/21 Steve Machado DC [address] [place] [address] Chiropractic Medicine 07/10/21 Cailin Garner [facility] [address] [place] [address] [email or web address] Press Clipper Oncology 10/15/21 Becca Patel RN [address] [place] [address] [email or web address] Primary Infusion Nurse 11/13/21 Sissy Aguilar, AKI [address] [place] [address] [email or web address] Primary Infusion Nurse 12/10/21 Tri Tyler, CLINICAL RESOURCE MANAGER [address] [place] [address] [email or web address] Clipper Oncology 04/17/22 Nayana Machado MD [address] [place] [phone] [email or web address] Medical Oncology 06/02/22 Kt Bird MD [address] [place] [id number] Internal Medicine 08/06/22 Qamar Cee MD [address] [place] [phone] Nephrology 08/06/22 documented as of this encounter Additional Source Comments The information contained in this document represents components of the legal health record. It is not the complete legal health record.[facility]
--- OUTSIDE RECORDS SUMMARY | 2025-02-08 12:32 | XMS_ITS | Encounter Summary ---
Author Organization [facility] Address [address] [facility] [address] [place] [address] Phone Care Team Providers Care Corporate Driver Name Role Phone Alicia West MD Primary Care Provider [phone] Steve Machado DC Unavailable Cailin Garner Unavailable Loni [email or web address] U Becca Patel RN Unavailable [phone] Sissy Aguilar RN Unavailable [email or web address] Tri TylerSW Unavailable Nayana Machado MD Unavailable Kt Bird MD Unavailable [phone] Qamar Cee MD Unavailable Reason for Visit * Reason Onset Date Comments Medication Prior Authorization 01/31/2025 Renu SANCHEZ not required Encounter Details Date Type Department Care Team (Late st Contact Info) Description 01/31/[address] [facility] Weight Management and Metabolic Surgery [address] [place] [address] Keyanna Beckford [address] [place] [address] [email or web address] Medication Prior Authorization (Sarah SANCHEZ not required ) Social History Tobacco Use Types Packs/Day Years Used Date Smoking Tobacco: Never Smokeless Tobacco: Never Alcohol Use Standard Drinks/Week Comments Never 0 (1 standard drink = 0.6 oz pur e alcohol) Education Answer Date Recorded Are you interested in more education? Not on maria eugenia e 08/06/2022 Are you concerned about learning? Not on file 08/06/2022 No 08/06/2022 No 08/06/2022 Digital Access Answer Date Recorded No 09/02/2022 No 09/02/2022 Reliable internet access at home? Not on file 09/02/2022 Device with a working camera? Not on file Comments No Sex and Gender Information Value Date Recorded Sex Assigned at Female 03/06/2023 5:38 PM EST Legal Sex Female 11:13 AM EDT Gender Identity Female 03/06/2023 5:38 PM EST Sexual Orientation Straight 03/06/2023 5: 38 PM EST documented as of this encounter Progress Notes * Keyanna Beckford - 01/31/2025 12:36 PM EDT Images from the original note were not included. PA for: Sarah 7.5 Status: PA not required Ins: [employer] BIN: [id number] PCN: [id number] GRP: RXCVSD ID: [id number] Prescriber: Sohail Kay PA 158.5 cm (5' 2 ) Initial weight: 06/13/24: 99.3 kg (219 lb) Bmi: 38.78 Current weight: 11/22/24: 82 kg (180 lb) Bmi: 32.64 TWL: 17.8% Dx: Type 2 diabetes mellitus E11.22 E11.21 Class 2 obesity E66.812 Essential hypertension I10 Hypercholesterolemia E78.00 Trulicity 1.5 mg weekly- 09/16/20-06/08/24- ineffective with weight loss documented in this encounter Plan of Treatment Upcoming Encounters Date Type Department Care Team (Late st Contact Info) Description 11/22/2024 Procedure Pass Jorge and Women's Switch Adjuster [place] [address] [address] 02/28/2025 1:30 PM EST Blood Draw Laboratory Services, [facility] at [address] [address] Nayana Machado MD [address] [place] [address] [email or web address] 02/28/2025 2:30 PM EST Office Visit Center for Breast Oncology, Aruna Ramon [place] [facility], [facility] at [address] [address] Nayana Machado MD [address] [place] [address] [email or web address] 02/28/2025 3:30 PM EST Infusion Infusion Therapy Services South, [facility] at [address] [address] Nayana Machado MD [address] [place] [address] [email or web address] 06/13/2025 11:[address] [facility] Medical Weight Management 221 [facility] 2nd [place] [address] Krystle Avalos MD [address] [place] [address] [email or web address] 06/27/2025 2:00 PM EDT Appointment [facility] Switch Adjuster [place] [address] [address] Ayan Stein, [address] [address] Anson@[facility]. [facility] 06/27/2025 3:30 PM EDT Office Visit Center for Breast Oncology, Aruna Ramon [place] [facility], [facility] [place] [facility] [place] [address] [address] Ayan Stein, BANDSAW OPERATOR 75 [place] [address] Anson@[email or web address] documented as of this encounter Visit Diagnoses Not on filedocumented in this encounter Additional Health Concerns Assessment Noted Time PHQ-2 Depression Total Score: 0 06/23/19 24 11:08 AM EDT documented as of this encounter Care Teams Corporate Driver Relationship Specialty Start Date End Date Alicia West MD [email or web address] PCP - General Internal Medicine 07/10/21 Steve Machado DC 115[address] [place] [address] Chiropractic Medicine 07/10/21 Cailin Garner, [facility] 1156 [place] [address] Cesia@[email or web address] Summer Law Clerk Oncology 10/15/21 Becca Patel RN 300 [place] [address] CHICHO@[email or web address] Primary Infusion Nurse 11/13/21 Sissy Aguilar RN 2014 [place] [address] Cheyenne@[email or web address] Primary Infusion Nurse 12/10/21 Tri Tyler, ENGINEERING DESIGNER 35 [place] [address] [email or web address], located [facility] Summer Law Clerk Oncology 04/17/22 Nayana Machado MD [address] [place] [address] [email or web address]. [facility] Medical Oncology 06/02/22 Kt Bird MD [address] [place] [address] Internal Medicine 08/06/22 Qamar Cee MD [address] [place] [address] Nephrology 08/06/22 documented as of this encounter Additional Source Comments The information contained in this document represents components of the legal health record. It is not the complete legal health record.[facility]
--- OUTSIDE RECORDS SUMMARY | 2025-02-08 12:32 | XMS_ITS | Encounter Summary ---
Author Organization [facility] Address [address] [place] [address] Phone Care Team Providers Care Gate Manager Name Role Phone Alicia West MD Primary Care Provider [phone] Steve Machado DC Unavailable Cailin Garner Unavailable Loni Garner@[email or web address]. Becca Acuña RN Unavailable [phone] Sissy Aguilar RN Unavailable Cheyenne@ [email or web address].[facility] Tri Tyler RAIL SPLITTER Unavailable [phone] Nayana Machado MD Unavailable Kt Bird MD Unavailable [phone] Qamar Cee MD Unavailable Encounter Details Date Type Department Care Team (Late st Contact Info) Description 08/07/[address] [facility] and [facility]'s [facility] for Breast Imaging [address] [place] [address] 2nd [place] [address] Social History Tobacco Use Types Packs/Day Years Used Date Smoking Tobacco: Never Smokeless Tobacco: Never Alcohol Use Standard Drinks/Week Comments Not Currently 0 (1 standard drink = 0.6 oz [...] st Contact Info) Description 11/22/[address] [facility] and Women's Commercial Real Estate Underwriter Center 850 [facility] 560 [place] [address] 02/28/2025 1:30 PM EST Blood Draw Laboratory Services, [facility] at [address] [address] Nayana Machado MD [address] [place] [address] [email or web address] .[facility] 02/28/2025 2:30 PM EST Office Visit Center for Breast Oncology, Aruna Ramon [place] [facility], [facility] at [address] [address] Nayana Machado MD [address] [place] [address] [email or web address] .[facility] 02/28/2025 3:30 PM EST Infusion Infusion Therapy Services [facility], [facility] [place] at [address] [address] Nayana Machado MD [address] [place] [address] [email or web address] .[facility] 06/13/2025 11:00 AM EST Telemedicine [facility] Medical Weight Management [address] [address] Krystle Avalos MD [address] [place] [address] [email or web address] 06/27/2025 2:00 PM EDT Appointment Jorge and Women's Commercial Real Estate Underwriter Center 850 [facility] [address] [place] [address] Ayan Stein, INNOVATION MANAGER 75 [place] [address] Anson@[email or web address] 06/27/2025 3:30 PM EDT Office Visit Center for Breast Oncology, Aruna Ramon [place] [facility], [facility] [place] [facility] [place] 300 [facility] 4th [place] [address] Ayan Stein, INNOVATION MANAGER 75 [place] [address] Anson@[email or web address] documented as of this encounter Visit Diagnoses Not on filedocumented in this encounter Care Teams Gate Manager Relationship Specialty Start Date End Date Alicia West MD [email or web address] PCP - General Internal Medicine 07/10/21 Steve Machado DC 1156 [place] [address] Chiropractic Medicine 07/10/21 Cailin Garner LICSW 1156 [place] [address] Cesia@[email or web address] Control Clerk Subassembly Oncology 10/15/21 Becca Patel RN 300 [place] [address] CHICHO@[email or web address] Primary Infusion Nurse 11/13/21 Sissy Aguilar RN 2014 [place] [address] Cheyenne@[email or web address] Primary Infusion Nurse 12/10/21 Tri Tyler, RAIL SPLITTER 35 [place] [address] Yash@[email or web address] Control Clerk Subassembly Oncology 04/17/22 Nayana Machado MD 44 [facility] [address] [place] [address] [email or web address]. [facility] Medical Oncology 06/02/22 Kt Bird MD [address] [place] [address] Internal Medicine 08/06/22 Qamar Cee MD [address] [place] [address] Nephrology 08/06/22 documented as of this encounter Additional Source Comments The information contained in this document represents components of the legal health record. It is not the complete legal health record.[facility]
--- OUTSIDE RECORDS SUMMARY | 2025-02-08 12:32 | XMS_ITS | Encounter Summary ---
Author Organization [facility] Address [address] [place] [address] Phone Care Team Providers Care Product Support Representative Name Role Phone Alicia West MD Primary Care Provider [phone] Steve Machado DC Unavailable Cailin Garner Unavailable Loni [email or web address]. Becca Acuña RN Unavailable Sissy Aguilar RN Unavailable Cheyenne@ [email or web address].[facility] Tri Tyler TUTORING MANAGER Unavailable Nayana Machado MD Unavailable [phone] Kt Bird MD Unavailable Qamar Cee MD Unavailable Encounter Details Date Type Department Care Team (Late st Contact Info) Description 08/07/2021 Ancillary Orders [facility] Breast Center Surgery [address] [place] [address] Anjana Gustafson MD Alison_[email or web address] Social History Tobacco Use Types Packs/Day Years [...] st Contact Info) Description 11/22/2024 Procedure Pass [facility] and Women's [facility]so [facility] 850 [facility] 560 [place] [address] 02/28/2025 1:30 PM EST Blood Draw Laboratory Services, [facility] [place] [address] [address] Nayana Machado MD [address] [place] [address] [email or web address] .[facility] 02/28/2025 2:30 PM EST Office Visit Center for Breast Oncology, Aruna Ramon [place] [facility], [facility] [place] [address] [address] Nayana Machado MD [address] [place] [address] James@[email or web address] .[facility] 02/28/2025 3:30 PM EST Infusion Infusion Therapy Services [facility], [facility] [place] [address] [address] Nayana Machado MD [address] [place] [address] James@[email or web address] .[facility] 06/13/2025 11:00 AM EST Telemedicine [facility] Medical Weight Management [address] [address] Krystle Avalos MD 850 [place] [address] [email or web address] 06/27/2025 2:00 PM EDT Appointment Jorge and Women's Tso Center 850 [facility] [address] [place] [address] Ayan Stein, CAREER SERVICES REPRESENTATIVE 75 [place] [address] Anson@[facility] 06/27/2025 3:30 PM EDT Office Visit Center for Breast Oncology, Aruna Ramon [place] [facility], [facility] [place] [facility] [place] 300 [facility] 4th [place] [address] Ayan Stein, CAREER SERVICES REPRESENTATIVE 75 [place] [address] Anson@[facility] documented as of this encounter Visit Diagnoses Not on filedocumented in this encounter Care Teams Product Support Representative Relationship Specialty Start Date End Date Alicia West MD [email or web address] PCP - General Internal Medicine 07/10/21 Steve Machado DC 1156 [place], [place] [address] Chiropractic Medicine 07/10/21 Cailin Garner [facility] 1156 [place] [address] Cesia@[facility] Solder Leveler Printed Circuit Boards Oncology 10/15/21 Becca Patel RN 300 [place] [address] CHICHO@[facility] Primary Infusion Nurse 11/13/21 Sissy Aguilar RN 2014 [place] [address] Cheyenne@[email or web address] Primary Infusion Nurse 12/10/21 Tri Tyler, [facility] 35 [place] [address] Yash@[email or web address] Solder Leveler Printed Circuit Boards Oncology 04/17/22 Nayana Machado MD [address] [address] James@[facility]. [facility] Medical Oncology 06/02/22 Kt Bird MD [address] [place] [address] Internal Medicine 08/06/22 Qamar Cee MD [address] [place] [address] Nephrology 08/06/22 documented as of this encounter Additional Source Comments The information contained in this document represents components of the legal health record. It is not the complete legal health record.[facility]
--- OUTSIDE RECORDS SUMMARY | 2025-02-08 12:32 | XMS_ITS | Encounter Summary ---
Author Organization [facility] Address [address] [place] [address] Phone Care Team Providers Care Supervisor Maintenance Name Role Phone Alicia West MD Primary Care Provider [phone] Steve Machado DC Unavailable Cailin Garner Unavailable Loni [email or web address]. Becca Acuña RN Unavailable [phone] Sissy Aguilar RN Unavailable Cheyenne@ [facility].[facility] Tri Tyler CLAIMS COORDINATOR Unavailable Nayana Machado MD Unavailable Kt Bird MD Unavailable Qamar Cee MD Unavailable Encounter Details Date Type Department Care Team (Late st Contact Info) Description 12/09/2022 Procedure Pass [facility] [facility] [place] [facility] [place], Mammography [address] 4th [place], [place] [id number] Social History Tobacco Use Types Packs/Day Years [...] st Contact Info) Description 11/22/2024 Procedure Pass [facility] and Women's Machine Gunner Center 850 [facility] 560 [place] [address] 02/28/2025 1:30 PM EST Blood Draw Laboratory Services, [facility] at [address] [address] Nayana Machado MD [address] [place] [address] [email or web address] 02/28/2025 2:30 PM EST Office Visit Center for Breast Oncology, Aruna Ramon [place] [facility] Women[facility] Cancers, [facility] at [address] [address] Nayana Machado MD [address] [place] [address] [email or web address] 02/28/2025 3:30 PM EST Infusion Infusion Therapy Services South, [facility] Cancer [place] at [address] [address] Nayana Machado MD [address] [place] [address] [email or web address] .[facility] 06/13/2025 11:00 AM EST Telemedicine [facility] Medical Weight Management [address] 2nd [place] [address] Krystle Avalos MD 850 [place] [address] [email or web address] 06/27/2025 2:00 PM EDT Appointment [facility] and Women's Machine Gunner Center 850 [facility] 560 [place] [address] Ayan Stein, VAULT MANAGER 75 [place] [address] Anson@[facility] 06/27/2025 3:30 PM EDT Office Visit Center for Breast Oncology, Aruna Ramon [place] [facility] Women[facility]ancers, [facility] [place] [facility] [place] 300 [facility] 4th [place] [address] Ayan Stein, VAULT MANAGER 75 [place] [address] Anson@[facility] documented as of this encounter Visit Diagnoses Not on filedocumented in this encounter Care Teams Supervisor Maintenance Relationship Specialty Start Date End Date Alicia West MD [email or web address] PCP - General Internal Medicine 07/10/21 Steve Machado DC [address] [place] [address] Chiropractic Medicine 07/10/21 Cailin Garner LICSW [address] [place] [address] Cesia@[email or web address]. [facility] Signal Worker Helper Oncology 10/15/21 SudBecca mendoza RN 300 [place] [address] CHICHO@[facility] Primary Infusion Nurse 11/13/21 Sissy Aguilar, RN 2014 [place] [address] Cheyenne@[facility] Primary Infusion Nurse 12/10/21 Tri Tyler, [facility] 35 [place] [address] Yash@[facility] Signal Worker Helper Oncology 04/17/22 Nayana Machado MD [address] [address] [email or web address]. [facility] Medical Oncology 06/02/22 Kt Bird MD [address] [place] [address] Internal Medicine 08/06/22 Qamar Cee MD [address] [place] [address] Nephrology 08/06/22 documented as of this encounter Additional Source Comments The information contained in this document represents components of the legal health record. It is not the complete legal health record.[facility]
--- OUTSIDE RECORDS SUMMARY | 2025-02-08 12:32 | XMS_ITS | Encounter Summary ---
Author Organization [facility] Address [address] [place] [address] Phone Care Team Providers Care Produce Associate Name Role Phone Alicia West MD Primary Care Provider [phone] Steve Machado DC Unavailable Cailin Garner Unavailable [email or web address] Becca Acuña RN Unavailable [phone] Sissy Aguilar RN Unavailable Cheyenne@ [email or web address] Tri Tyler RAP ARTIST Unavailable [phone] Nayana Machado MD Unavailable Kt Bird MD Unavailable Qamar Cee MD Unavailable Encounter Details Date Type Department Care Team (Late st Contact Info) Description 08/07/2021 Ancillary Orders [facility] for Breast Imaging [address] [facility] 2nd [place] [address] Anjana Gsutafson MD [email or web address] Abnormal finding on breast imaging Social History Tobacco Use Types Packs/Day Years [...] st Contact Info) Description 11/22/2024 Procedure Pass [facility] [address] [facility] [address] [place] [address] 02/28/2025 1:30 PM EST Blood Draw Laboratory Services, [facility] [address] [address] Nayana Machado MD [address] [place] [address] [email or web address] 02/28/2025 2:30 PM EST Office Visit [facility] for Breast Oncology, [facility] [place] [facility], [facility] [address] [address] Nayana Machado MD [address] [place] [address] [email or web address] 02/28/2025 3:30 PM EST Infusion Infusion Therapy Services [facility], [facility] [place] at [address] [address] Nayana Machado MD [address] [place] [address] [email or web address] 06/13/2025 11:00 AM EST Telemedicine [facility] Medical Weight Management [address] [facility] 2nd [place] [address] Krystle Avalos MD [address] [place] [address] [email or web address] 06/27/2025 2:00 PM EDT Appointment [facility] [address] [facility] [address] [place] [address] Ayan Stein, SERVICE MANAGER [address] [place] [address] [email or web address] 06/27/2025 3:30 PM EDT Office Visit [facility] for Breast [facility]cology, [facility] [place] [facility], [facility] [place] [facility] [place] 300 [facility] 4th [place] [address] Ayan Stein, SERVICE MANAGER 75 [place] [address] [email or web address] documented as of this encounter Results * BI US BREAST LIMITED (RIGHT) (08/07/2021 1:46 PM EDT) Anatomical Region Laterality Modality Breast Right, Breast Bilateral Right U ltrasound 08/07/2021 1:25 PM EDT Addenda Addendum by Shara López MD on 08/12/2021 2:08 PM EDT ADDENDUM: Site #1 -- right -marked with a cork clip: Pathology findings: A. RIGHT BREAST, UPPER OUTER, MRI-GUIDED 9G CORE NEEDLE BIOPSY FOR A 1.3 CM NON-MASS ENHANCEMENT: INVASIVE LOBULAR CARCINOMA, well differentiated (modified Rodrigez-Ornelas grade I/III: tubule score=3, nuclear score=1, mitoses score=1), at least 0.8 cm. No lymphovascular invasion identified. LOBULAR CARCINOMA IN SITU, classic type. Atypical lobular hyperplasia. ESTROGEN RECEPTOR POSITIVE (>95%, strong) PROGESTERONE RECEPTOR POSITIVE (70%, moderate to strong) HER2/WOLF NEGATIVE (0) This result is: Malignant. Recommendation for site 1: Recommend surgical management. Site #2 -- right - marked with a ribbon clip: Pathology findings: A. RIGHT BREAST, 10:00, 14-15 CM FROM NIPPLE, ULTRASOUND-GUIDED 14G CORE NEEDLE BIOPSY FOR DISTORTION: Focal atypical lobular hyperplasia. Breast parenchyma with stromal fibrosis and foreign body giant cell reaction. This result is: Considered discordant. Recommendation for site 2: Recommend follow up imaging. Additional MRI guided core biopsy is recommended of the previously noted 2 areas of posterior NMEs which are in the approximate area of these ultrasound-guided biopsy. Overall recommendation: MRI guided core biopsy (2X) at this time. Please see on annotated images from outside MRI dated 05/14/2021 to target biopsy #1 and biopsy # 3. - dominant focal non-mass enhancement measuring 1.4 x 1.4 x 1.1 cm in the slightly upper outer quadrant at mid to posterior depth (10:71; 101:31) - focal non-mass enhancement measuring 0.9 x 0.9 x 0.7 cm in the upper outer quadrant, located 1.5 cm superior medial to the above dominant NME (10:57; 101:37) Please note that the positioning on outside MRI is not symmetric and the nipple is pointing inward. Communication of results: The patient has already been informed of the results as documented in the EHR. Impressions 08/07/2021 4:04 PM EDT Site #1 -- focal non-mass enhancement in RIGHT upper outer quadrant at anterior depth (MRI-guided, cork clip): Pathology findings: Pending and will be reported in an addendum This result is: Pending and will be reported in an addendum. Recommendation for site 1: Pending and will be reported in an addendum. Site #2 -- irregular 0.4 cm hypoechoic area in RIGHT breast at 10:00, 14-15 cm from nipple (US-guided, ribbon clip): Pathology findings: Pending and will be reported in an addendum This result is: Pending and will be reported in an addendum (accession [id number]), Pending and will be reported in an addendum (accession [id number]), Pending and will be reported in an addendum (accession [id number]), Pending and will be reported in an addendum (accession [id number]). Recommendation for site 2: Pending and will be reported in an addendum (accession [id number]), Pending and will be reported in an addendum (accession [id number]), Pending and will be reported in an addendum (accession [id number]), Pending and will be reported in an addendum (accession [id number]). Overall recommendation: Pending. Communication of results: Pending. ATTESTATION: Shara Adame, as teaching physician have reviewed the images, if any, for this patient's exam, and if necessary, have edited the report originally created by Huey Garcia. Narrative 08/07/2021 4:04 PM EDT Reason for exam (per EHR order): Additional clinical information obtained from the EHR: 71-year-old woman with newly diagnosed RIGHT axillary node metastatic lobular carcinoma, with MRI showing 3 areas of suspicious enhancement in the RIGHT upper outer quadrant, for which MRI-guided core biopsy x3 was recommended. Pertinent imaging studies and/or documents were reviewed. The patient identification and procedure were verified. The patient's known allergies, current medications and adverse medication reactions were reviewed. The procedure was explained to the patient, including benefits, risks, and alternatives, and written consent was obtained. A safety pause was observed immediately prior to the procedure. TECHNIQUE: The patient was placed prone in the MRI magnet in the usual fashion. Using a 3.0 Linda magnet, dedicated breast coil and breast compression, preliminary sagittal and axial T1-weighted fat-suppressed images were obtained to confirm satisfactory positioning. IVCM: Administered. Site #1, Focal non-mass enhancement in RIGHT upper outer quadrant at anterior depth -- MRI-GUIDED CORE BIOPSY WITH MARKER: Following intravenous injection of gadolinium contrast, additional sagittal and axial images were obtained. The target lesion in the upper outer quadrant at anterior depth was identified and an appropriate skin entry site chosen for a lateral approach. The breast was prepped for the procedure using standard aseptic technique. Local anesthetic was administered and documented in the EHR. A coaxial sheath and obturator were advanced to the enhancing lesion. Repeat sagittal and axial images confirmed satisfactory positioning. Using 9-gauge standard vacuum-assisted directional biopsy device, multiple tissue samples were obtained. An MRI compatible tissue marker was then deployed at the biopsy site through the coaxial sheath. Post-biopsy axial images demonstrated expected post-biopsy changes. The two posterior areas of focal non-mass enhancement in the RIGHT upper outer quadrant, although seen on pre-biopsy planning images, were not able to be biopsied under MRI guidance with available equipment due to their posterior location. Thus, an MRI-directed ultrasound was then performed. Targeted evaluation of the RIGHT upper outer quadrant revealed a suspicious irregular hypoechoic area measuring approximately 0.4 cm at 10:00, 14-15 cm from the nipple which was thought to likely correspond to one of the posterior areas of non-mass enhancement seen on MRI. Ultrasound-guided core needle biopsy was recommended and performed (Site #2 below). Site #2, Irregular 0.4 cm hypoechoic area in RIGHT breast at 10:00, 14-15 cm from nipple -- ULTRASOUND-GUIDED CORE BIOPSY WITH MARKER: Subsequently, images of the right breast at 10:00, 14-15 cm from the nipple were obtained. Following cleansing of the skin and administration of local anesthetic as documented in the EHR, the target was biopsied under ultrasound guidance using an inferolateral approach, a 13-gauge introducer, and a 14-gauge automated biopsy device. Multiple tissue samples were obtained. Adequate lesion sampling was confirmed by orthogonal ultrasound images. A ribbon-shaped tissue marker was placed and was directly observed to deploy at the biopsy site. CC and lateral digital mammographic views show the cork-shaped (cylindrical) and ribbon-shaped markers in expected position. The teaching physician, Dr. Shara López, was present for the entire radiologic and collins portions of the procedure and was immediately available for the non-critical/collins portions. The patient tolerated the procedures well. There were no immediate complications. Discharge instructions were reviewed and all patient questions were answered. The patient was discharged to home in good condition. Procedure Note Shara López MD - 08/07/2021 Reason for exam (per EHR order): Additional clinical information obtained from the EHR: 71-year-old woman with newly diagnosed RIGHT axillary node metastaticlobular carcinoma, with MRI showing 3 areas of suspicious enhancement inthe RIGHT upper outer quadrant, for which MRI-guided core biopsy x3 wasrecommended. Pertinent imaging studies and/or documents were reviewed. The patientidentification and procedure were verified. The patient's known allergies,current medications and adverse medication reactions were reviewed. Theprocedure was explained to the patient, including benefits, risks, andalternatives, and written consent was obtained. A safety pause wasobserved immediately prior to the procedure. TECHNIQUE: The patient was placed prone in the MRI magnet in the usual fashion. Usinga 3.0 Linda magnet, dedicated breast coil and breast compression,preliminary sagittal and axial T1-weighted fat-suppressed images wereobtained to confirm satisfactory positioning. IVCM: Administered. Site #1, Focal non-mass enhancement in RIGHT upper outer quadrant atanterior depth -- MRI-GUIDED CORE BIOPSY WITH MARKER: Following intravenous injection of gadolinium contrast, additionalsagittal and axial images were obtained. The target lesion in the upperouter quadrant at anterior depth was identified and an appropriate skinentry site chosen for a lateral approach. The breast was prepped for theprocedure using standard aseptic technique. Local anesthetic wasadministered and documented in the EHR. A coaxial sheath and obturatorwere advanced to the enhancing lesion. Repeat sagittal and axial imagesconfirmed satisfactory positioning. Using 9-gauge standard vacuum-assisteddirectional biopsy device, multiple tissue samples were obtained. An MRIcompatible tissue marker was then deployed at the biopsy site through thecoaxial sheath. Post-biopsy axial images demonstrated expected post-biopsychanges. The two posterior areas of focal non-mass enhancement in the RIGHT upperouter quadrant, although seen on pre-biopsy planning images, were not ableto be biopsied under MRI guidance with available equipment due to theirposterior location. Thus, an MRI-directed ultrasound was then performed.Targeted evaluation of the RIGHT upper outer quadrant revealed asuspicious irregular hypoechoic area measuring approximately 0.4 cm at10:00, 14-15 cm from the nipple which was thought to likely correspond toone of the posterior areas of non-mass enhancement seen on MRI.Ultrasound-guided core needle biopsy was recommended and performed (Site#2 below). Site #2, Irregular 0.4 cm hypoechoic area in RIGHT breast at 10:00, 14-15cm from nipple -- ULTRASOUND-GUIDED CORE BIOPSY WITH MARKER: Subsequently, images of the right breast at 10:00, 14-15 cm from thenipple were obtained. Following cleansing of the skin and administrationof local anesthetic as documented in the EHR, the target was biopsiedunder ultrasound guidance using an inferolateral approach, a 13-gaugeintroducer, and a 14-gauge automated biopsy device. Multiple tissuesamples were obtained. Adequate lesion sampling was confirmed byorthogonal ultrasound images. A ribbon-shaped tissue marker was placed andwas directly observed to deploy at the biopsy site. CC and lateral digital mammographic views show the cork-shaped(cylindrical) and ribbon-shaped markers in expected position. The teaching physician, Dr. Shara López, was present for the entireradiologic and collins portions of the procedure and was immediately availablefor the non-critical/collins portions. The patient tolerated the procedures well. There were no immediatecomplications. Discharge instructions were reviewed and all patientquestions were answered. The patient was discharged to home in goodcondition. IMPRESSION: Site #1 -- focal non-mass enhancement in RIGHT upper outer quadrant atanterior depth (MRI-guided, cork clip): Pathology findings: Pending and will be reported in an addendum This result is: Pending and will be reported in an addendum. Recommendation for site 1: Pending and will be reported in an addendum. Site #2 -- irregular 0.4 cm hypoechoic area in RIGHT breast at 10:00,14-15 cm from nipple (US-guided, ribbon clip): Pathology findings: Pending and will be reported in an addendum This result is: Pending and will be reported in an addendum ([id number]), Pending and will be reported in an addendum ([id number]), Pending and will be reported in an addendum ([id number]), Pending and will be reported in an addendum ([id number]). Recommendation for site 2: Pending and will be reported in an addendum(accession [id number]), Pending and will be reported in an addendum(accession [id number]), Pending and will be reported in an addendum(accession [id number]), Pending and will be reported in an addendum(accession [id number]). Overall recommendation: Pending. Communication of results: Pending. ATTESTATION: Shara Adame, as teaching physician have reviewed theimages, if any, for this patient's exam, and if necessary, have edited thereport originally created by Huey Garcia. Anjana Gustafson MD [facility] BREAST Edited Result - Final documented in this encounter Visit Diagnoses Diagnosis Abnormal finding on breast imaging Abnormal finding on breast imaging documented in this encounter Care Teams Produce Associate Relationship Specialty Start Date End Date Alicia West MD [email or web address] PCP - General Internal Medicine 07/10/21 Steve Machado DC [address] [place] [address] Chiropractic Medicine 07/10/21 [facility] [address] [place] [address] [email or web address] Servicing Rep Oncology 10/15/21 Becca Patel RN [address] [place] [address] [email or web address] Primary Infusion Nurse 11/13/21 Sissy Aguilar RN [address] [place] [phone] [email or web address] Primary Infusion Nurse 12/10/21 Tri Tyler, [facility] [address] [place] [address] [email or web address] Servicing Rep Oncology 04/17/22 Nayana Machado MD [address] [facility] [address] [place] [address] [email or web address] Medical Oncology 06/02/22 Kt Bird MD [address] [place] [address] Internal Medicine 08/06/22 Qamar Cee MD [address] [place] [address] Nephrology 08/06/22 documented as of this encounter Additional Source Comments The information contained in this document represents components of the legal health record. It is not the complete legal health record.[facility]
--- OUTSIDE RECORDS SUMMARY | 2025-02-08 12:32 | XMS_ITS ---
Author Organization [facility] Address [address] [place] [address] Phone Care Team Providers Care Cop Examiner Name Role Phone Alicia West MD Primary Care Provider [phone] Steve Machado DC Unavailable Cailin Garner [employer] Unavailable [email or web address]_ [email or web address] [place] Becca Patel RN Unavailable Sissy Aguilar RN Unavailable [email or web address] Tri Tyler [employer] Unavailable Nayana Machado MD Unavailable Kt Bird MD Unavailable Qamar Cee MD Unavailable Active Problems Patient Care Coordination No te Formatting of this note migh t be different from the original. LEFT SIDE ONLY FOR PIVs, Blood Draw, BP. LYMPHEDEMA ON RIGHT. Venous assessment completed 08/23/24 Problem Noted Date Diagnosed Date Renal insufficiency 12/08/2022 Class 2 obesity 12/02/2022 Malignant neoplasm of breast in female, estrogen receptor positive 06/02/2022 Hypercholesterolemia 02/04/2022 Malignant neoplasm of overla pping sites of breast in female, estrogen receptor positive 11/05/2021 Type 2 diabetes mellitus wit h diabetic chronic kidney disease 04/12/2021 Essential hypertension 02/17/2021 Type 2 diabetes mellitus with diabetic nephropat hy 07/02/2020 Anemia of chronic disease 05/22/2020 Benign hypertensive renal disease 05/22/2020 Current Treatment and Therapy Plans ZOLEDRONIC ACID (ZOMETA)* Plan Start Date:08/20/2022 Plan Provider:Ayan Stein CNP Linked Problems Malignant neoplasm of breast in female, estrogen receptor positive, unspecified laterality, unspecified site of breast Treatment Medications No medications scheduled. Past Treatment and Therapy Plans Oncology Therapy Plan Plan Name Start Date Discontinue Date Treatment Medications Discontinue Reason Plan Provider SCALP COOLING MACHINE AND SUPPORTIVE CARE MEDICATIONS 12/10/2021 10/03/2024 No medications scheduled. a. Therapy Complete Ayan Stein CNP Oncology Therapy Plan Supplemental Plan Name Start Date Discontinue Date Treatment Medications Discontinue Reason Plan Provider ZOLEDRONIC ACID (ZOMETA) 07/31/2022 08/06/2022 No medications scheduled. f. Change in Level of Care Nayana Machado MD Oncology Therapy Plan Supplemental 2 Plan Name Start Date Discontinue Date Treatment Medications Discontinue Reason Plan Provider BLOOD PRODUCT TRANSFUSION 08/06/2022 10/04/2024 No medications scheduled. a. Therapy Complete Ayan Stein CNP TREATMENT PLAN Plan Name Start Date Discontinue Date Treatment Medications Discontinue Reason Plan Provider Cycles DOCETAXE L/CYCLOP HOSPHAMI DE 11/26/2021 06/02/2022 cycloPHOSphamide (CYTOXAN) infusion 250 mL (powder vial)DOCEtaxel (TAXOTERE) IVPB in 250 mL (Doses >85 mg to 199 mg) a. Therapy Complete Nayana Machado MD 4 of 4 cycles started
--- OUTSIDE RECORDS SUMMARY | 2025-02-08 12:32 | XMS_ITS | Continuity of Care Document ---
Author Organization [facility] [address] [facility] [address] [place] [address] Phone [phone] Care Team Providers Care Business Coordinator Name Role Phone Alicia West M.D. Care Team Information Receiv er [phone] Problems Active Problems Provider Date Diabetes mellitus Kt Bird M.D. Onset: 1 Essential hypertension Kt Bird M.D. Ons et: 02/04/2022 Hypercholesterolemia Kt Bird M.D. Onset : 02/04/2022 Carcinoma of breast Kt Bird M.D. Onset: 02/04/2022 Renal insufficiency Kt Bird M.D. Onset: 12/08/2022 Social History Type Date Description Comments Sex Female Sex Unknown Lives With Alone ETOH Use [...] e11.9 9units E11.9 Chio Waters M.D. 09/07/2023 Ebeczngihfz6ig Tablets 1 by mouth every day Kt Bird M.D. 08/06/2023 Atorvastatin Rqpzzyp20jp Tablets 1 Tab by mouth every day 90tabs Chio Waters M.D. 08/06/2023 Lusa470(65Fe) mg Tablets 1 tab by mouth every day Kt Bird M.D. 12/08/2022 BD Pen Needle/Nadege/Ultra -Fine/32G X 4mm32G X 4 mm Misc 1 pen needle to insulin pen three times a day Dx: E11.9 300units E11.9 Kt Bird M.D. 02/03/2022 Amlodipine Bqfqcgts7bg Tablets 1 by mouth every day Coleman Foote MD Clonidine HCL0.1mg Tablets 1 bid Unknown Tramadol SPH98ux Tablets take 1 tablet by mouth daily as needed 30tabs Alicia West M.D. Tolterodine Tartrate ER4mg Caps ER 24HR 1 by mouth every day Gomez French M.D. Ondansetron HCL8mg Tablets take as directed as needed for nausea Unknown Nebivolol LGZ75ac Tablets 1 tab by mouth every day Unknown Vital Signs Date Vital Result Comment 12/05/2024 10:28am BP Systolic 110 mmHg BP Diastolic 78 mmHg Heart Rate 90 /min Height 63 inches 5'3 Weight 185.25 lb BMI (Body Mass Index) 32.8 kg/m2 Results Test Acquired Date Facility Test Result H/L Range N ote Glucose Fingerstick 12/05/2024 Inhouse Glucose Fingerstick 159 Glucose Fingerstick 05/04/2024 Inhouse Glucose Fingerstick 156 Glucose Fingerstick 12/08/2023 Inhouse Glucose Fingerstick 167 Glucose Fingerstick 08/06/2023 Inhouse Glucose Fingerstick 137 Hemoglobin A1c 08/06/2023 Inhouse Hemoglobin A1c 6.8% Glucose Fingerstick 04/02/2023 Inhouse Glucose Fingerstick 146 Hemoglobin A1c 03/16/2023 [facility] [address] [address] [phone] Hemoglobin A1c <pending> Glucose Fasting Serum/Plasma 03/16/[address] [address] Glucose Fasting Serum/Plasma <pending> Lipid Panel 03/16/[address] [address] [phone] Cholesterol Total Mass/Vol <pending> Cholester/HDL Molecular Ratio <pending> High Density Lipoprotein <pending> LDL/HDL Mass Ratio <pending> LDL Cholesterol Mass/Vol <pending> Triglycerides Ser/Plas Mass/VL <pending> Glucose Fingerstick 12/08/2022 Inhouse Glucose Fingerstick 140 Procedures Date Code Description Status 12/05/2024 78238 Glucose Monitoring Interpeta tion And Report Completed Medical Devices Description No Information Available Encounters Type Date Location Provider Dx Diagnosis Office Visit 12/05/2024 10:15a Main Office Mahad Pelaez NP E11.9 Type 2 diabetes mellitus without complications I10 Essential (primary) hypertension E78.00 Pure hypercholestero lemia, unspecified Assessments Date Code Description Provider 12/05/2024 E11.9 Type 2 diabetes mellitus wit hout complications Mahad Pelaez NP 12/05/2024 I10 Essential hypertension Mahad Pelaez NP 12/05/2024 E78.00 Pure hypercholesterolemia, u nspecified Mahad Pelaez NP Plan of Treatment Future Appointment(s):* 06/05/2025 10:30 am - Mahad Pelaez NP at Main Office * 04/11/2026 3:30 pm - Mahad Pelaez NP at Main Office 12/05/2024 - Mahad Pelaez NP* E11.9 Type 2 diabetes mellitus without complications * I10 Essential hypertension * E78.00 Pure hypercholesterolemia, unspecified Functional Status Description No Information Available Mental Status Description No Information Available Referrals Description No Information Available
--- OUTSIDE RECORDS SUMMARY | 2025-02-08 12:33 | XMS_ITS | Encounter Summary ---
Author Organization [facility] Address [address] [employer] [facility] [address] [place] [address] Phone Care Team Providers Care Mind Reader Name Role Phone Alicia West MD Primary Care Provider [phone] Steve Machado DC Unavailable Cailin Garner Unavailable Loni [email or web address]. Becca Acuña RN Unavailable Sissy Aguilar RN Unavailable Cheyenne@ [email or web address].[facility] Tri Tyler PRIOR AUTHORIZATION NURSE Unavailable [phone] Nayana Machado MD Unavailable [phone] Kt Bird MD Unavailable [phone] Qamar Cee MD Unavailable Encounter Details Date Type Department Care Team (Late st Contact Info) Description 10/31/2021 Procedure Pass [facility], Mammography, Raiza Lank Imaging Department [address] [place] [address] Social History Tobacco Use Types Packs/Day Years [...] Pass [facility] and Women's Chief Service Dispatcher Center 850 [facility] [address] [place] [address] 02/28/2025 1:30 PM EST Blood Draw Laboratory Services, [facility] at [address] [address] Nayana Machado MD [address] [place] [address] [email or web address] 02/28/2025 2:30 PM EST Office Visit Center for Breast Oncology, [facility] [place] [facility], [facility] [place] [address] [address] Nayana Machado MD [address] [place] [address] [email or web address] 02/28/2025 3:30 PM EST Infusion Infusion Therapy Services [facility], [facility] at [address] [address] Nayana Machado MD [address] [place] [address] James@[email or web address] 06/13/2025 11:00 AM EST Telemedicine [facility] Medical Weight Management [address] [address] Krystle Avalos MD [address] [place] [address] [email or web address] 06/27/2025 2:00 PM EDT Appointment [facility] and Women's Chief Service Dispatcher Center 850 [facility] [address] [place] [address] Ayan Stein, ANALOG DEVICE DESIGNER [address] [place] [address] [email or web address]. [facility] 06/27/2025 3:30 PM EDT Office Visit [facility] for Breast Oncology, [facility], [facility] [place] 300 [facility] 4th [place] [address] Ayan Stein, ANALOG DEVICE DESIGNER [address] [place] [address] Anson@[email or web address] documented as of this encounter Visit Diagnoses Not on filedocumented in this encounter Care Teams Mind Reader Relationship Specialty Start Date End Date Alicia West MD [email or web address] PCP - General Internal Medicine 07/10/21 Steve Machado DC [address] [place] [address] Chiropractic Medicine 07/10/21 Cailin Garner LICSW [address] [place] [address] Cesia@[facility] Yard Pipe Grader Oncology 10/15/21 Becca Patel RN 300 [place] [address] CHICHO@[email or web address] Primary Infusion Nurse 11/13/21 Sissy Aguilar, AKI [address] [place] [address] [email or web address]@[email or web address] Primary Infusion Nurse 12/10/21 Tri Tyler, PRIOR AUTHORIZATION NURSE [address] [place] [address] Yash@[email or web address] Yard Pipe Grader Oncology 04/17/22 Nayana Machado MD 44 [facility] [address] [place] [address] James@[email or web address]. [facility] Medical Oncology 06/02/22 Kt Bird MD [address] [place] [address] Internal Medicine 08/06/22 Qamar Cee MD [address] [place] [address] Nephrology 08/06/22 documented as of this encounter Additional Source Comments The information contained in this document represents components of the legal health record. It is not the complete legal health record.[facility]
--- OUTSIDE RECORDS SUMMARY | 2025-02-08 12:33 | XMS_ITS | Encounter Summary ---
Author Organization [facility] Address 399 [facility] [address] [place] [address] Phone Care Team Providers Care Professor Of Industrial Technology Name Role Phone Alicia West MD Primary Care Provider [phone] Steve Machado DC Unavailable Cailin Garner Unavailable Loni [email or web address]. U Becca Patel RN Unavailable [phone] Sissy Aguilar RN Unavailable Sissy_[email or web address] Tri Tyler FARMWORKER RICE Unavailable Nayana Machado MD Unavailable Kt Bird MD Unavailable Qamar Cee MD Unavailable Reason for Referral * Outpatient Procedure - Closed Specialty Diagnoses / Procedures Referred By Contac t Referred To Contact Radiology Diagnoses Malignant neoplasm of right female breast, unspecified estrogen receptor status, unspecified site of breast Procedures Mammogram Diagnostic Post Procedure (Right) CHG DIAGNOSTIC MAMMOGRAPHY COMPUTER-AIDED DETCJ UNI Anjana Gustafson MD mailto:[email or web address] Referral ID Status Reason Start Date Expiration Date Visits Re quested Visits Authorized [id number] Closed 07/31/2021 07/31/2022 1 1 Encounter Details Date Type Department Care Team (Late st Contact Info) Description 07/31/2021 Ancillary Orders [facility] for Breast Imaging [address] [place] [address] Anjana Gustafson MD [email or web address]. [facility] Malignant neoplasm of right female breast, unspecified estrogen receptor status, unspecified site of breast Social History Tobacco Use Types Packs/Day Years [...] st Contact Info) Description 11/22/2024 Procedure Pass [facility] Pricing Director Center 850 [facility] [address] [place] [address] 02/28/2025 1:30 PM EST Blood Draw Laboratory Services, [facility] [place] [facility] [place] [address] [address] Nayana Machado MD [address] [place] [address] [email or web address] 02/28/2025 2:30 PM EST Office Visit [facility] for Breast [facility]cology, [facility], [facility] [place] [facility] [place] [address] [address] Nayana Machado MD [address] [place] [address] [email or web address] 02/28/2025 3:30 PM EST Infusion Infusion Therapy Services [facility], [facility] [place] [facility] [place] [address] [address] Nayana Machado MD [address] [address] [email or web address] 06/13/2025 11:00 AM EST Telemedicine [facility] Medical Weight Management [address] [place] [address] Krystle Avalos MD 850 [place] [address] [email or web address] 06/27/2025 2:00 PM EDT Appointment [facility] and Women's Pricing Director Center 850 [facility] 560 [place] [address] Ayan Stein, CHIEF DOG LICENSE INSPECTOR 75 [place] [address] Anson@[email or web address]. [facility] 06/27/2025 3:30 PM EDT Office Visit [facility] Breast [facility], [facility], [facility] [place] [facility] [place] [address] [address] Ayan Stein, CHIEF DOG LICENSE INSPECTOR [address] [place] [address] Anson@[email or web address]. [facility] documented as of this encounter Results * BI MAMMOGRAM DIAGNOSTIC POST PROCEDURE NO TOMOSYNTHESIS NO CAD (RIGHT) (08/07/2021 2:21 PM EDT) Anatomical Region Laterality Modality Breast Right, Breast Bilateral Right M ammography 08/07/2021 1:25 PM EDT Addenda Addendum by [...] will be reported in an addendum (accession [id number]), Pending and will be reported in an addendum (accession [id number]), Pending and will be reported in an addendum (accession [id number]), Pending and will be reported in an addendum (accession [id number]). Recommendation for site 2: Pending and will be reported in an addendum (accession [id number]), Pending and will be reported in an addendum (accession [id number]), Pending and will be reported in an addendum (accession [id number]), Pending and will be reported in an addendum (accession [id number]). Overall recommendation: Pending. Communication of results: Pending. [...] and will be reported in an addendum ([id number]), Pending and will be reported in an addendum ([id number]), Pending and will be reported in an addendum ([id number]), Pending and will be reported in an addendum ([id number]). Recommendation for site 2: Pending and will be reported in an addendum(accession [id number]), Pending and will be reported in an addendum(accession [id number]), Pending and will be reported in an addendum(accession [id number]), Pending and will be reported in an addendum(accession [id number]). Overall recommendation: Pending. Communication of results: Pending. ATTESTATION: Shara Adame, as teaching physician have reviewed theimages, if any, for this patient's exam, and if necessary, have edited thereport originally created by Huey Garcia. Anjana Gustafson MD IMG MG EXAMS Edited Result - Final documented in this encounter Visit Diagnoses Diagnosis Malignant neoplasm of right female breast, unspecified estrogen receptor status, unspecified site of breast Malignant neoplasm of right female breast, unspecified estrogen receptor status, unspecified site of breast documented in this encounter Care Teams Professor Of Industrial Technology Relationship Specialty Start Date End Date Alicia West MD [email or web address] PCP - General Internal Medicine 07/10/21 Steve Machado DC [address] [place] [address] Chiropractic Medicine 07/10/21 Cailin Garner LICSW [address] [place] [address] [email or web address]. [facility] Title Investigator Oncology 10/15/21 Becca Patel RN [address] [place] [address] CHICHO@[email or web address] Primary Infusion Nurse 11/13/21 Sissy Aguilar RN [address] [place] [phone] Cheyenne@[facility] Primary Infusion Nurse 12/10/21 Tri Tyler, FARMWORKER RICE [address] [place] [address] Yash@[email or web address] Title Investigator Oncology 04/17/22 Nayana Machado MD 44 [facility] [address] [place] [address] [email or web address]. [facility] Medical Oncology 06/02/22 Kt Bird MD [address] [place] [address] Internal Medicine 08/06/22 Qamar Cee MD [address] [place] [address] Nephrology 08/06/22 documented as of this encounter Additional Source Comments The information contained in this document represents components of the legal health record. It is not the complete legal health record.[facility]
--- OUTSIDE RECORDS SUMMARY | 2025-02-08 12:33 | XMS_ITS | Encounter Summary ---
Author Organization [facility] Address [address] [place] [address] Phone Care Team Providers Care Packaging Engineer Name Role Phone Alicia West MD Primary Care Provider [phone] Steve Machado DC Unavailable Cailin Garner Unavailable Loni [email or web address]. U Becca Patel RN Unavailable Sissy Aguilar RN Unavailable Cheyenne@ [email or web address] Tri Tyler RN MIDWIFE Unavailable [phone] Nayana Machado MD Unavailable Kt Bird MD Unavailable Qamar Cee MD Unavailable Encounter Details Date Type Department Care Team (Late st Contact Info) Description 07/31/2021 Ancillary Orders [facility], [facility], [facility] [place] [facility] [place] [address] [address] Anjana Gustafson MD Alison_[email or web address] Social History Tobacco Use Types Packs/Day Years [...] st Contact Info) Description 11/22/2024 Procedure Pass [facility] and Women's Lathe Operator Contact Lens Center 850 [facility] 560 [place] [address] 02/28/2025 1:30 PM EST Blood Draw Laboratory Services, [facility] [place] [address] [address] Nayana Machado MD [address] [place] [address] [email or web address] 02/28/2025 2:30 PM EST Office Visit Center for Breast Oncology, Aruna Ramon [place] [facility], [facility] [place] [address] [address] Nayana Machado MD [address] [place] [address] [email or web address] 02/28/2025 3:30 PM EST Infusion Infusion Therapy Services South, [facility] [place] [facility] [place] [address] [address] Nayana Machado MD [address] [place] [address] [email or web address] 06/13/2025 11:00 AM EST Telemedicine [facility] Medical Weight Management 221 [facility] 2nd [place] [address] Krystle Avalos MD 850 [place] [address] [email or web address] 06/27/2025 2:00 PM EDT Appointment [facility] and Women's Lathe Operator Contact Lens Center 850 [facility] 560 [place] [address] Ayan Stein, MANAGER CCU 75 [place] [address] Anson@[facility] 06/27/2025 3:30 PM EDT Office Visit [facility] for Breast [facility]cology, Aruna Ramon [place] [facility] C[facility], [facility] [place] [place] [address] [address] Ayan Stein, MANAGER CCU 75 [place] [address] Anson@[email or web address] documented as of this encounter Visit Diagnoses Not on filedocumented in this encounter Care Teams Packaging Engineer Relationship Specialty Start Date End Date Alicia West MD [email or web address] PCP - General Internal Medicine 07/10/21 Steve Machado DC 1156 [place] [address] Chiropractic Medicine 07/10/21 Cailin Garner LICSW [address]6 [place] [address] Cesia@[email or web address]. [facility] Technical Research Scientist Oncology 10/15/21 Becca Patel RN 300 [place] [address] [email or web address] Primary Infusion Nurse 11/13/21 Sissy Aguilar, RN [address] [place] [address] Cheyenne@[facility] Primary Infusion Nurse 12/10/21 Tri Tyler LICSW 35 [place] [address] Yash@[email or web address] Technical Research Scientist Oncology 04/17/22 Nayana Machado MD 44 [facility] [address] [place] [address] [email or web address] Medical Oncology 06/02/22 Kt Bird MD [address] [place] [address] Internal Medicine 08/06/22 Qamar Cee MD [address] [place] [address] Nephrology 08/06/22 documented as of this encounter Additional Source Comments The information contained in this document represents components of the legal health record. It is not the complete legal health record.[facility]
--- OUTSIDE RECORDS SUMMARY | 2025-02-08 12:33 | XMS_ITS | Encounter Summary ---
Author Organization [facility] Address [address] [place] [address] Phone Care Team Providers Care Merchant Patroller Name Role Phone Alicia West MD Primary Care Provider [phone] Steve Machado DC Unavailable Cailin Garner Unavailable Loni [email or web address] U Becca Patel RN Unavailable [phone] Sissy Aguilar RN Unavailable [email or web address].[facility] Tri Tyler MEDICAL EDUCATION MANAGER Unavailable Nayana Machado MD Unavailable [phone] Kt Bird MD Unavailable [phone] Qamar Cee MD Unavailable Reason for Referral * Outpatient Procedure - Closed Specialty Diagnoses / Procedures Referred By Contac t Referred To Contact Radiology Diagnoses Malignant neoplasm of right female breast, unspecified estrogen receptor status, unspecified site of breast Procedures Mammogram Diagnostic Post Procedure (Right) CHG DIAGNOSTIC MAMMOGRAPHY COMPUTER-AIDED DETCJ UNI Anjana Gustafson MD mailto:[email or web address] Referral ID Status Reason Start Date Expiration Date Visits Re quested Visits Authorized [id number] Closed 08/19/2021 08/19/2022 1 1 Encounter Details Date Type Department Care Team (Late st Contact Info) Description 08/19/2021 Ancillary Orders [facility], [facility], [facility] at [address] [address] Anjana Gustafson MD [email or web address]. [facility] Malignant neoplasm of right female breast, unspecified [...] st Contact Info) Description 11/22/2024 Procedure Pass [facility] Director [facility] 850 [facility] [address] [place] [address] 02/28/2025 1:30 PM EST Blood Draw Laboratory Services, [facility] at [address] [address] Nayana Machado MD [address] [place] [phone] [email or web address] .[facility] 02/28/2025 2:30 PM EST Office Visit [facility], [facility], [facility] at [address] [address] Nayana Machado MD [address] [place] [address] [email or web address] 02/28/2025 3:30 PM EST Infusion Infusion Therapy Services [facility], [facility] [place] [address] [address] Nayana Machado MD [address] [address] [email or web address] .[facility] 06/13/2025 11:00 AM EST Telemedicine [facility] Medical Weight Management [address] [address] Krystle Avalos MD 850 [place] [address] [email or web address] 06/27/2025 2:00 PM EDT Appointment [facility] Director Talent Management Center [address] [address] Ayan Stein, METAL PLATER [address] [place] [address] Anson@[facility] 06/27/2025 3:30 PM EDT Office Visit [facility], [facility] [facility], [facility] at [address] [address] Ayan Stein, METAL PLATER [address] [place] [address] Anson@[facility]. [facility] documented as of this encounter Results * BI MAMMOGRAM DIAGNOSTIC POST PROCEDURE NO TOMOSYNTHESIS NO CAD (RIGHT) (08/21/2021 12:58 PM EDT) Anatomical Region Laterality Modality Breast Right, Breast Bilateral Right M ammography 08/21/2021 1:40 PM EDT Addenda Addendum by Natalie Garcia MD on 08/26/2021 8:09 AM EDT ADDENDUM: Site #1 -- non-mass enhancement in the upper outer quadrant medially marked with a stoplight-shaped clip: Pathology findings: Cluster of apocrine cysts (0.4 cm). Atypical lobular hyperplasia. This result is: Benign and concordant. Recommendation for site 1: Recommend surgical management. Surgical management for known invasive lobular carcinoma in the right breast. Site #2 -- non-mass enhancement in the upper outer quadrant laterally marked with an hourglass-shaped clip: Pathology findings: Cluster of apocrine cysts (0.2 cm). Atypical lobular hyperplasia. This result is: Benign and concordant. Recommendation for site 2: Recommend surgical management. Surgical management for known invasive lobular carcinoma in the right breast. Communication of results: Findings were communicated via result note in Epic on 08/25/[address] Rockwell who will communicate the results and recommendations to the patient. Impressions 08/21/2021 2:34 PM EDT Site #1 -- non-mass enhancement in the upper outer quadrant medially marked with a stoplight-shaped clip: Pathology findings: Pending and will be reported in an addendum This result is: Pending and will be reported in an addendum. Recommendation for site 1: Pending and will be reported in an addendum. Site #2 -- non-mass enhancement in the upper outer quadrant laterally marked with an hourglass-shaped clip: Pathology findings: Pending and will be reported in an addendum This result is: Pending and will be reported in an addendum. Recommendation for site 2: Pending and will be reported in an addendum. Communication of results: Pending. Narrative 08/21/2021 2:34 PM EDT Reason for exam (per EHR order): Right breast invasive lobular carcinoma. Additional clinical information obtained from the EHR: Recent imaging demonstrates the following findings for which MRI-guided core biopsy is recommended: Site #1: Focal non-mass enhancement in the upper outer quadrant medially measuring 7 mm marked biopsy #3 on annotated images from outside MRI dated 05/14/2021. Site #2: A dominant focal non-mass enhancement laterally measuring 1.1 cm in the slightly upper outer quadrant at middle depth marked biopsy #1 on annotated images from outside MRI dated 05/14/2021. Pertinent imaging studies and/or documents were reviewed. The patient identification and procedure were verified. The patient's known allergies, current medications and adverse medication reactions were reviewed. The procedure was explained to the patient, including benefits, risks, and alternatives, an d written consent was obtained. A safety pause was observed immediately prior to the procedure. TECHNIQUE: The patient was placed prone in the MRI magnet in the usual fashion. Using a 3.0 Linda magnet, dedicated breast coil and breast compression, preliminary sagittal and axial T1-weighted fat-suppressed images were obtained to confirm satisfactory positioning. IVCM: Administered. SITE #1--RIGHT upper outer quadrant medial 9-GAUGE MRI-GUIDED CORE BIOPSY WITH MARKER: Following intravenous injection of gadolinium contrast, additional sagittal and axial images were obtained. The target lesion in the upper outer quadrant was identified and an appropriate skin entry site chosen for a lateral approach. The breast was prepped for the procedure using standard aseptic technique. Local anesthetic was administered and documented in the EHR. A coaxial sheath and obturator were advanced to the enhancing lesion. Repeat sagittal and axial images confirmed satisfactory positioning. Using a 9-gauge standard vacuum-assisted directional biopsy device, multiple tissue samples were obtained. Post-biopsy sagittal and axial images demonstrated expected post-biopsy changes. Astoplight-shaped MRI-compatible tissue marker was then deployed at the biopsy site through the coaxial sheath. SITE #2--RIGHT upper outer quadrant lateral 9-GAUGE MRI-GUIDED CORE BIOPSY WITH MARKER: The target lesion in the upper outer quadrant was also identified and an appropriate skin entry site chosen for a lateral approach. After sterile preparation of the skin, local anesthetic was administered and documented in the EHR. A coaxial sheath and obturator were advanced to the enhancing lesion. Repeat sagittal and axial images confirmed satisfactory positioning. Using a 9-gauge standard vacuum-assisted directional biopsy device, multiple tissue samples were obtained. Post-biopsy sagittal and axial images demonstrated expected post-biopsy changes. A hourglass (uzznbd-CX-nkifoj) MRI-compatible tissue marker was then deployed at the biopsy site through the coaxial sheath. CC and lateral digital mammographic views show the stoplight-shaped marker in the expected location of the biopsy site with surrounding postbiopsy hematoma and the hourglass (ynjmdx-LY-vncpzs) marker in the expected location at the site of biopsy. I was present for the entire radiologic and collins portions of the procedure and was immediately available for the non-critical/collins portions. The patient tolerated the procedure well. There were no immediate complications. Discharge instructions were reviewed and all patient questions were answered. The patient was discharged to home. Procedure Note Natalie Garcia MD - 08/21/2021 Reason for exam (per EHR order): Right breast invasive lobularcarcinoma. Additional clinical information obtained from the EHR: Recent imaging demonstrates the following findings for which MRI-guidedcore biopsy is recommended: Site #1: Focal non-mass enhancement in the upper outer quadrant mediallymeasuring 7 mm marked biopsy #3 on annotated images from outside MRI date05/14/2021. Site #2: A dominant focal non-mass enhancement laterally measuring 1.1 cmin the slightly upper outer quadrant at middle depth marked biopsy #1 onannotated images from outside MRI dated 05/14/2021. Pertinent imaging studies and/or documents were reviewed. The patientidentification and procedure were verified. The patient's known allergies,current medications and adverse medication reactions were reviewed. Theprocedure was explained to the patient, including benefits, risks, andalternatives, an d written consent was obtained. A safety pause wasobserved immediately prior to the procedure. TECHNIQUE: The patient was placed prone in the MRI magnet in the usual fashion. Usinga 3.0 Linda magnet, dedicated breast coil and breast compression,preliminary sagittal and axial T1-weighted fat-suppressed images wereobtained to confirm satisfactory positioning. IVCM: Administered. SITE #1--RIGHT upper outer quadrant medial 9-GAUGE MRI-GUIDED CORE BIOPSYWITH MARKER: Following intravenous injection of gadolinium contrast, additionalsagittal and axial images were obtained. The target lesion in the upperouter quadrant was identified and an appropriate skin entry site chosenfor a lateral approach. The breast was prepped for the procedure usingstandard aseptic technique. Local anesthetic was administered anddocumented in the EHR. A coaxial sheath and obturator were advanced to theenhancing lesion. Repeat sagittal and axial images confirmed satisfactorypositioning. Using a 9-gauge standard vacuum-assisted directional biopsydevice, multiple tissue samples were obtained. Post-biopsy sagittal andaxial images demonstrated expected post-biopsy changes. Cdisdqqsgy-rnrlfzUCI-zyapmueylx tissue marker was then deployed at the biopsy site throughthe coaxial sheath. SITE #2--RIGHT upper outer quadrant lateral 9-GAUGE MRI-GUIDED CORE BIOPSYWITH MARKER: The target lesion in the upper outer quadrant was also identified and anappropriate skin entry site chosen for a lateral approach. After sterilepreparation of the skin, local anesthetic was administered and documentedin the EHR. A coaxial sheath and obturator were advanced to the enhancinglesion. Repeat sagittal and axial images confirmed satisfactorypositioning. Using a 9-gauge standard vacuum-assisted directional biopsydevice, multiple tissue samples were obtained. Post-biopsy sagittal andaxial images demonstrated expected post-biopsy changes. A hourglass(jaepey-HK-faemux) MRI-compatible tissue marker was then deployed at thebiopsy site through the coaxial sheath. CC and lateral digital mammographic views show the stoplight-shaped markerin the expected location of the biopsy site with surrounding postbiopsyhematoma and the hourglass (qkbxnb-VH-verrgx) marker in the expectedlocation at the site of biopsy. I was present for the entire radiologic and collins portions of the procedureand was immediately available for the non-critical/collins portions. The patient tolerated the procedure well. There were no immediatecomplications. Discharge instructions were reviewed and all patientquestions were answered. The patient was discharged to home. IMPRESSION: Site #1 -- non-mass enhancement in the upper outer quadrant mediallymarked with a stoplight-shaped clip: Pathology findings: Pending and will be reported in an addendum This result is: Pending and will be reported in an addendum. Recommendation for site 1: Pending and will be reported in an addendum. Site #2 -- non-mass enhancement in the upper outer quadrant laterallymarked with an hourglass-shaped clip: Pathology findings: Pending and will be reported in an addendum This result is: Pending and will be reported in an addendum. Recommendation for site 2: Pending and will be reported in an addendum. Communication of results: Pending. Anjana Gustafson MD IMG MG EXAMS Edited Result - Final documented in this encounter Visit Diagnoses Diagnosis Malignant neoplasm of right female breast, unspecified estrogen receptor status, unspecified site of breast Malignant neoplasm of right female breast, unspecified estrogen receptor status, unspecified site of breast documented in this encounter Care Teams Merchant Patroller Relationship Specialty Start Date End Date Alicia West MD [email or web address] PCP - General Internal Medicine 07/10/21 Steve Machado DC [address] [place] [address] Chiropractic Medicine 07/10/21 Cailin Garner, [facility] [address] [place] [address] Cesia@[email or web address] Flame Gouger Oncology 10/15/21 Becca Patel RN [address] [place] [address] CHICHO@[facility] Primary Infusion Nurse 11/13/21 Sissy Aguilar RN [address] [place] [phone] Cheyenne@[facility] Primary Infusion Nurse 12/10/21 Tri Tyler, [facility] [address] [place] [address] Yash@[email or web address] Flame Gouger Oncology 04/17/22 Nayana Machado MD 44 [facility] [address] [place] [address] James@[email or web address] Medical Oncology 06/02/22 Kt Bird MD [address] [place] [address] Internal Medicine 08/06/22 Qamar Cee MD [address] [place] [address] Nephrology 08/06/22 documented as of this encounter Additional Source Comments The information contained in this document represents components of the legal health record. It is not the complete legal health record.[facility]
--- OUTSIDE RECORDS SUMMARY | 2025-02-08 12:33 | XMS_ITS | Encounter Summary ---
Author Organization [facility] Address [address] [place] [address] Phone Care Team Providers Care Radio Talk Show Host Name Role Phone Alicia West MD Primary Care Provider [phone] Steve Machado DC Unavailable Cailin Garner Unavailable Loni Garner@[email or web address] U Becca Patel RN Unavailable Sissy Aguilar RN Unavailable Sissy_Jeff@ [facility].[facility] Tri Tyler GRAD[employer] 7 AND 8 TEACHER Unavailable [phone] Nayana Machado MD Unavailable [phone] Kt Bird MD Unavailable Qamar Cee MD Unavailable Encounter Details Date Type Department Care Team (Late st Contact Info) Description 07/30/2021 Procedure Pass [facility] [address] [facility] 2nd [facility], [place] [id number] Social History Tobacco Use Types Packs/Day Years [...] st Contact Info) Description 11/22/2024 Procedure Pass [facility] Volunteer Recruiter Center 850 [facility] 560 [place] [address] 02/28/2025 1:30 PM EST Blood Draw Laboratory Services, [facility] at [address] [address] Nayana Machado MD [address] [place] [address] [email or web address] .[facility] 02/28/2025 2:30 PM EST Office Visit [facility], Aruna Ramon [place] [facility], [facility] at [address] [address] Nayana Machado MD [address] [place] [address] James@[email or web address] .[facility] 02/28/2025 3:30 PM EST Infusion Infusion Therapy Services South, [facility] at [address] [address] Nayana Machado MD [address] [place] [address] James@[email or web address] .[facility] 06/13/2025 11:00 AM EST Telemedicine [facility] Medical Weight Management [address] [address] Krystle Avalos MD 850 [place] [address] [email or web address] u 06/27/2025 2:00 PM EDT Appointment [facility] 850 [facility] [address] [place] [address] Ayan Stein, CLOUD ADMINISTRATOR [address] [place] [address] Anson@[facility]. [facility] 06/27/2025 3:30 PM EDT Office Visit [facility] for Breast [facility]cology, Aruna Ramon [place] [facility], [facility] [place] 300 [facility] 4th [place] [address] Ayan Stein, CLOUD ADMINISTRATOR [address] [place] [address] Anson@[facility]. [facility] documented as of this encounter Visit Diagnoses Not on filedocumented in this encounter Care Teams Radio Talk Show Host Relationship Specialty Start Date End Date Alicia West MD [email or web address] PCP - General Internal Medicine 07/10/21 Steve Machado DC [address] [place] [address] Chiropractic Medicine 07/10/21 Cailin Garner [facility] 115[address] [place] [address] Cesia@[facility]. [facility] Health Promotion Manager Oncology 10/15/21 Becca Patel RN 300 [place] [address] CHICHO@[email or web address] Primary Infusion Nurse 11/13/21 Sissy Aguilar, AKI [address] [place] [phone] Cheyenne@[facility] Primary Infusion Nurse 12/10/21 Tri Tyler, [facility] 35 [place] [address] Yash@[facility] Health Promotion Manager Oncology 04/17/22 Nayana Machado MD [address] [place] [address] James@[facility]. [facility] Medical Oncology 06/02/22 Kt Bird MD [address] [place] [address] Internal Medicine 08/06/22 Qamar Cee MD [address] [place] [address] Nephrology 08/06/22 documented as of this encounter Additional Source Comments The information contained in this document represents components of the legal health record. It is not the complete legal health record.[facility]
--- OUTSIDE RECORDS SUMMARY | 2025-02-08 12:33 | XMS_ITS | Encounter Summary ---
Author Organization [facility] Address [address] [place] [address] Phone Care Team Providers Care Door Liner Helper Name Role Phone Alicia West MD Primary Care Provider [phone] Steve aMchado DC Unavailable Cailin Garner Unavailable Loni Garner@[email or web address].[place]. Becca Acuña RN Unavailable Sissy Aguilar RN Unavailable Cheyenne@ [facility].[facility] Tri Tyler DOCUMENTATION COORDINATOR Unavailable [phone] Nayana Machado MD Unavailable [phone] Kt Bird MD Unavailable [phone] Qamar Cee MD Unavailable Encounter Details Date Type Department Care Team (Late st Contact Info) Description 08/07/2021 Ancillary Orders [facility] for Breast Imaging 75 [facility] 2nd [place] [address] Anjana Gustafson MD Alison_[email or web address]@[email or web address]. [place].[facility] Malignant neoplasm of right female breast, unspecified [...] st Contact Info) Description 11/22/2024 Procedure Pass [facility] Transfer And Pumphouse Operator Chief Center [address] [facility] [address] [place] [address] 02/28/2025 1:30 PM EST Blood Draw Laboratory Services, [facility] [place] [address] [address] Nayana Machado MD [address] [place] [address] James@[email or web address] 02/28/2025 2:30 PM EST Office Visit [facility] for Breast [facility], Aruna Ramon [place] [facility], [facility] [place] [address] [address] Nayana Machado MD [address] [place] [address] [email or web address] 02/28/2025 3:30 PM EST Infusion Infusion Therapy Services South, [facility] [place] [facility] [place] [address] [address] Nayana Machado MD [address] [place] [address] James@[facility] 06/13/2025 11:[address] [facility] Medical Weight Management [address] [address] Krystle Avalos MD 850 [place] [address] [email or web address] 06/27/2025 2:00 PM EDT Appointment [facility] Women's Transfer And Pumphouse Operator Chief Center 850 [facility] 560 [place] [address] Ayan Stein, MILK TANKER DRIVER [address] [place] [address] Anson@[facility] 06/27/2025 3:30 PM EDT Office Visit [facility], Aruna Ramon [place] [facility], [facility] [place] [facility] [place] [address] [address] Ayan Stein, MILK TANKER DRIVER [address] [place] [address] Anson@[facility] documented as of this encounter Visit Diagnoses Diagnosis Malignant neoplasm of right female breast, unspecified estrogen receptor status, unspecified site of breast documented in this encounter Care Teams Door Liner Helper Relationship Specialty Start Date End Date Alicia West MD [email or web address] PCP - General Internal Medicine 07/10/21 Steve Machado DC [address] [place] [address] Chiropractic Medicine 07/10/21 Cailin Garner [facility] [address] [place] [address] Cesia@[facility]. [facility] Regional Driver Oncology 10/15/21 Becca Patel RN 300 [place] [address] CHICHO@[facility] Primary Infusion Nurse 11/13/21 Sissy Aguilar, RN [address] [place] [phone] Cheyenne@[facility] Primary Infusion Nurse 12/10/21 Tri Tyler, [facility] 35 [place] [address] Yash@[facility] Regional Driver Oncology 04/17/22 Nayana Machado MD [address] [address] James@[email or web address] Medical Oncology 06/02/22 Kt Bird MD [address] [place] [address] Internal Medicine 08/06/22 Qamar Cee MD [address] [place] [address] Nephrology 08/06/22 documented as of this encounter Additional Source Comments The information contained in this document represents components of the legal health record. It is not the complete legal health record.[facility]
--- OUTSIDE RECORDS SUMMARY | 2025-02-08 12:33 | XMS_ITS | Encounter Summary ---
Author Organization [facility] Address [address] [facility] [address] [place] [phone] Phone Care Team Providers Care Slab Inspector Name Role Phone Alicia West MD Primary Care Provider [phone] Steve Machado DC Unavailable Cailin Garner Unavailable Loni [email or web address]. Becca Acuña RN Unavailable Sissy Aguilar RN Unavailable Cheyenne@ [email or web address] Tri Tyler WEDDING DESIGNER Unavailable [phone] Nayana Machado MD Unavailable Kt Bird MD Unavailable Qamar Cee MD Unavailable Encounter Details Date Type Department Care Team (Late st Contact Info) Description 11/04/2021 Procedure Pass [facility] Imaging Department, [facility] [place] [address] [facility], Floor [address]1 [place] [address] Social History Tobacco Use Types Packs/Day Years [...] st Contact Info) Description 11/22/2024 Procedure Pass [facility] and [facility] Primary Care Coordinator Center [address] [facility] [address] [place] [address] 02/28/2025 1:30 PM EST Blood Draw Laboratory Services, [facility] at [address] [address] Nayana Machado MD [address] [place] [phone] [email or web address] 02/28/2025 2:30 PM EST Office Visit Center for Breast Oncology, [facility], [facility] [place] [address] [address] Nayana Machado MD [address] [place] [phone] [email or web address] 02/28/2025 3:30 PM EST Infusion Infusion Therapy Services [facility], [facility] at [address] [address] Nayana Machado MD [address] [place] [phone] [email or web address] 06/13/2025 11:00 AM EST Telemedicine [facility] Medical Weight Management [address] [address] Krystle Avalos MD 850 [place] [address] [email or web address] 06/27/2025 2:00 PM EDT Appointment [facility] and Women's Primary Care Coordinator Center [address] [facility] [address] [place] [address] Ayan Stein, MARKETING AND OUTREACH COORDINATOR [address] [place] [address] Anson@[email or web address] 06/27/2025 3:30 PM EDT Office Visit Center for Breast Oncology, [facility], [facility] [place] [facility] [place] 300 [facility] 4th [place] [address] Ayan Stein, MARKETING AND OUTREACH COORDINATOR [address] [place] [address] Anson@[email or web address] documented as of this encounter Visit Diagnoses Not on filedocumented in this encounter Care Teams Slab Inspector Relationship Specialty Start Date End Date Alicia West MD [email or web address] PCP - General Internal Medicine 07/10/21 Steev Machado DC [address] [place], [place] [phone] Chiropractic Medicine 07/10/21 Cailin Garner, [facility] 115[address] [place] [address] [email or web address] Aerial Photographer Oncology 10/15/21 Becca Patel RN 300 [place] [address] [email or web address] Primary Infusion Nurse 11/13/21 Sissy Aguilar RN 2014 [place] [address] [email or web address] Primary Infusion Nurse 12/10/21 Tri Tyler, WEDDING DESIGNER 35 [place] [address] [email or web address] Aerial Photographer Oncology 04/17/22 Nayana Machado MD [address] [address] [email or web address] Medical Oncology 06/02/22 Kt Bird MD [address] [place] [address] Internal Medicine 08/06/22 Qamar Cee MD [address] [place] [address] Nephrology 08/06/22 documented as of this encounter Additional Source Comments The information contained in this document represents components of the legal health record. It is not the complete legal health record.[facility]
--- OUTSIDE RECORDS SUMMARY | 2025-02-08 12:33 | XMS_ITS | Encounter Summary ---
Author Organization [facility] Address [address] [facility] [address] [place] [address] Phone Care Team Providers Care Principal Automation Engineer Name Role Phone Alicia West MD Primary Care Provider [phone] Steve Machado DC Unavailable Cailin Garner MINGLE OPERATOR Unavailable Loni [email or web address] Becca Patel RN Unavailable Sissy Aguilar RN Unavailable Cheyenne@ [email or web address] Tri Tyler MINGLE OPERATOR Unavailable Nayana Machado MD Unavailable [phone] Kt Bird MD Unavailable Qamar Cee MD Unavailable Reason for Referral * Outpatient Procedure - Closed Specialty Diagnoses / Procedures Referred By Contac t Referred To Contact Radiology Diagnoses Abnormal finding on breast imaging Procedures PRISON Biopsy of Breast (Right) Anjana Gustafson MD mailto:[email or web address] Referral ID Status Reason Start Date Expiration Date Visits Re quested Visits Authorized [id number] Closed 08/07/2021 08/07/2022 1 1 Encounter Details Date Type Department Care Team (Late st Contact Info) Description 08/07/2021 Ancillary Orders [facility] for Breast Imaging 75 [facility] 2nd [place] [address] Anjana Gustafson MD [email or web address] Abnormal finding on breast imaging Social [...] st Contact Info) Description 11/22/2024 Procedure Pass [facility] [address] [facility] 560 [place] [address] 02/28/2025 1:30 PM EST Blood Draw Laboratory Services, [facility] at [address] [address] Nayana Machado MD [address] [place] [phone] [email or web address] 02/28/2025 2:30 PM EST Office Visit Center for Breast Oncology, [facility], [facility] at [address] [address] Nayana Machado MD [address] [place] [phone] [email or web address] 02/28/2025 3:30 PM EST Infusion Infusion Therapy Services South, [facility] at [address] [address] Nayana Machado MD [address] [address] [email or web address] 06/13/2025 11:00 AM EST Telemedicine [facility] Medical Weight Management [address] [facility] 2nd [place] [address] Krystle Avalos MD 850 [place] [address] [email or web address] 06/27/2025 2:00 PM EDT Appointment [facility] [address] [facility] 560 [place] [address] Ayan Stein, EVENT COORDINATOR 75 [place] [address] [email or web address] 06/27/2025 3:30 PM EDT Office Visit Center for Breast Oncology, [facility] [facility], [facility] [place] [facility] [place] 300 [facility] 4th [place] [address] Ayan tSein, EVENT COORDINATOR 75 [place] [address] [email or web address] documented as of this encounter Results * PRISON Biopsy of Breast (Right) (08/07/2021 2:17 PM EDT) Anatomical Region Laterality Modality Breast [...] will be reported in an addendum (accession [id number]), Pending and will be reported in an addendum (accession [id number]), Pending and will be reported in an addendum (accession [id number]), Pending and will be reported in an addendum (accession [id number]). Recommendation for site 2: Pending and will be reported in an addendum (accession [id number]), Pending and will be reported in an addendum (accession [id number]), Pending and will be reported in an addendum (accession [id number]), Pending and will be reported in an addendum (accession [id number]). Overall recommendation: Pending. Communication of results: Pending. [...] condition. Procedure Note Shara López MD - 04/28/2022 Reason for exam (per EHR order): Additional [...] and will be reported in an addendum ([id number]), Pending and will be reported in an addendum ([id number]), Pending and will be reported in an addendum ([id number]), Pending and will be reported in an addendum ([id number]). Recommendation for site 2: Pending and will be reported in an addendum(accession [id number]), Pending and will be reported in an addendum(accession [id number]), Pending and will be reported in an addendum(accession [id number]), Pending and will be reported in an addendum(accession [id number]). Overall recommendation: Pending. Communication of results: Pending. ATTESTATION: Shara Adame, as teaching physician have reviewed theimages, if any, for this patient's exam, and if necessary, have edited thereport originally created by Huey Garcia. Anjana Gustafson MD IMG BI IRP GUIDED BREAST PROC Ed ited Result - Final documented in this encounter Visit Diagnoses Diagnosis Abnormal finding on breast imaging Abnormal finding on breast imaging documented in this encounter Care Teams Principal Automation Engineer Relationship Specialty Start Date End Date Alicia West MD [email or web address] PCP - General Internal Medicine 07/10/21 Steve Machado DC [address] [place] [address] Chiropractic Medicine 07/10/21 Cailin Garner, [facility] [address] [place] [address] Cesia@[email or web address] Chamfering Machine Operator Oncology 10/15/21 Becca Patel RN 300 [place] [address] [email or web address] Primary Infusion Nurse 11/13/21 Sissy Aguilar RN 2014 [place] [address] [email or web address] Primary Infusion Nurse 12/10/21 Tri Tyler, [facility] 35 [place] [address] [email or web address] Chamfering Machine Operator Oncology 04/17/22 Nayana Machado MD [address] [place] [address] [email or web address]. [facility] Medical Oncology 06/02/22 Kt Bird MD [address] [place] [address] Internal Medicine 08/06/22 Qamar Cee MD [address] [place] [address] Nephrology 08/06/22 documented as of this encounter Additional Source Comments The information contained in this document represents components of the legal health record. It is not the complete legal health record.[facility]
--- OUTSIDE RECORDS SUMMARY | 2025-02-08 12:33 | XMS_ITS | Clinical Summary ---
Author Organization [facility] Address [address] [facility] [address] [place] [address] Phone Care Team Providers Care Plastic Extruding Machine Operator Name Role Phone Alicia West MD Primary Care Provider [phone] Steve Machado DC Unavailable Cailin Garner FELT CUTTING MACHINE OPERATOR Unavailable [email or web address] Becca Patel RN Unavailable [phone] Sissy Aguilar RN Unavailable [email or web address] Tir Tyler FELT CUTTING MACHINE OPERATOR Unavailable Nayana Machado MD Unavailable [phone] Kt Bird MD Unavailable [phone] Qamar Cee MD Unavailable Allergies Active Allergy Reactions Criticality Noted Date Comments Codeine 05/22/2020 Other reaction(s): Other (see comments) Medications ferrous sulfate 325 mg (65 mg [place] iron) tablet Take 1 tablet by mouth. Active nebivoloL (BYSTOLIC) 20 mg Tab Take 20 mg by mouth. 11/22/19 21 Active tolterodine (DETROL LA) 4 MG 24 hr capsule Take 1 capsule by mouth. Active multivitamins with iron-folic acid (CENTRUM COMPLETE) 18-400 mg-mcg Tab Take 1 tablet by mouth. Active traMADoL (ULTRAM) 50 mg tablet Take 1 tablet (50 mg total) by mouth every 6 (six) hours as needed for pain (specific location in comments). 10 tablet 10/09/19 22 Active miscellaneous medical supply Misc 1 Device by Miscellaneous route daily. Right arm reaching aid. 1 mL 01/22/20 22 Active cloNIDine HCL (CATAPRES) 0.1 MG tablet Take 1 tablet (0.1 mg total) by mouth 2 (two) times a day. 1 tablet 08/07/19 23 Active amLODIPine (NORVASC) 5 MG tablet Take 5 mg by mouth. 01/15/20 23 Active B-complex with vitamin C tablet Take 1 tablet by mouth daily. Active atorvastatin (LIPITOR) 20 MG tablet Take 0.5 tablets (10 mg total) by mouth daily. 08/18/19 24 Active abemaciclib (VERZENIO) 50 mg tablet Take 1 tablet (50 mg total) by mouth 2 (two) times a day. 60 tablet 4 05/09/19 25 Active empagliflozin (JARDIANCE) 10 mg tablet Take 10 mg by mouth daily. Active anastrozole (ARIMIDEX) 1 mg tablet Take 1 tablet (1 mg total) by mouth daily. 90 tablet 3 06/22/19 25 Active prochlorperazine (COMPAZINE) 10 MG tablet Take 1 tablet (10 mg total) by mouth every 6 (six) hours as needed (nausea). 90 tablet 1 09/16/19 25 Active tirzepatide (MOUNJARO) 7.5 mg/0.5 mL PnIj subcutaneous pen Inject 0.5 mL (7.5 mg total) under the skin once a week. 2 mL 3 09/26/19 25 Active cyclobenzaprine (FLEXERIL) 10 MG tablet Take 10 mg by mouth 3 (three) times a day. 11/04/19 25 Active ondansetron (ZOFRAN) 8 MG tablet Take 1 tablet (8 mg total) by mouth every 8 (eight) hours as needed for nausea. 90 tablet 1 01/06/20 25 Active tirzepatide (MOUNJARO) 7.5 mg/0.5 mL PnIj subcutaneous pen Inject 0.5 mL (7.5 mg total) under the skin once a week. 2 mL 2 01/30/20 25 Active Active Problems Patient Care Coordination No te [...] disease 05/22/2020 Benign hypertensive renal disease 05/22/2020 Encounters Date Type Department Care Team Description 01/31/2025 Telephone [facility] for Weight Management and Metabolic Surgery [address] [place] [address] BeckfordKeyanna Medication Prior Authorization (Sarah SANCHEZ not required ) 01/05/2025 Orders Only [facility], [facility], [facility] [place] [address] [facility] [place] [address] Ayan Crowder, JEFF 12/20/2024 Telephone [facility], [facility], [facility] [place] [address] [facility] [place] [address] Yoselin Douglas, RN Results 12/13/2024 Telephone [facility] Medical Weight Management [address] [place] [address] [place], [place] 11/22/2024 1:30 PM EDT Office Visit [facility], [facility], [facility] [place] [facility] [place] [address] 4th [place] [address] Ayan Crowder, MANAGER WELDING Nayana Machado MD Malignant neoplasm of right female breast, unspecified estrogen receptor status, unspecified site of breast (Primary Dx); Need for hepatitis B screening test 11/22/2024 Orders Only Infusion Therapy Services [facility] [place] [facility] [place] [address] [facility] [address]th [place] [address] Nayana Machado MD Malignant neoplasm of breast in female, estrogen receptor positive, unspecified laterality, unspecified site of breast (Primary Dx) 11/22/2024 Orders Only [facility], [facility], [facility] [place] [address] [facility] [place] [address] Nayana Machado MD Malignant neoplasm of right female breast, unspecified estrogen receptor status, unspecified site of breast (Primary Dx) from Last 3 Months Immunizations Immunization Administration Dates Next Due Influenza High-Dose Quadrivalent Preservative Fr ee IM 02/24/2023,01/28/2022 Influenza High-Dose Trivalent Preservative Free IM 03/01/2024 Family History Medical History Relation Comments Cancer Father Prostrate cancer Prostate cancer Father Breast cancer Paternal Cousin Relation Status Comments Father Paternal Cousin Social History Tobacco Use Types Packs/Day Years Used Date Smoking Tobacco: Never Smokeless Tobacco: Never Tobacco Cessation:Counseling Given: Not Answered Alcohol Use Standard Drinks/Week Comments Never 0 [...] Orientation Straight 03/06/2023 5: 38 PM EST Last Filed Vital Signs Vital Sign Reading Time Taken Comments Blood Pressure 103/70 11/22/2024 12:31 PM EDT Pulse 94 11/22/2024 12:31 PM EDT Temperature 36.8 C (98.3 F) 11/22/2024 12:31 PM EDT Respiratory Rate 16 11/22/2024 12:31 PM EDT Oxygen Saturation 99% 11/22/2024 12:31 PM EDT Inhaled Oxygen Concentration - - Weight 82 kg (180 lb 12.4 oz) 11/22/2024 12:31 P M EDT Height 158.5 cm (5' 2.4 ) 06/21/2024 2:05 PM EDT Body Mass Index 32.64 06/21/2024 2:05 PM EDT Plan of Treatment Upcoming Encounters Date Type Department Care Team (Late st Contact Info) Description 11/22/2024 Procedure Pass [facility] Chief Operator Lock Tender [facility] [address] [facility] [address] [place] [address] 02/28/2025 1:30 PM EST Blood Draw Laboratory Services, [facility] at [address] [address] Nayana Machado MD [address] [place] [phone] [email or web address] 02/28/2025 2:30 PM EST Office Visit [facility], [facility] [place] [facility], [facility] [place] [address] [address] Nayana Machado MD [address] [place] [email or web address] 02/28/2025 3:30 PM EST Infusion Infusion Therapy Services South, [facility] at [address] [address] Nayana Machado MD [address] [place] [phone] [email or web address] 06/13/2025 11:00 AM EST Telemedicine [facility] Medical Weight Management [address]nd [place] [address] Krystle Avalos MD [address] [place] [address] [email or web address] 06/27/2025 2:00 PM EDT Appointment [facility] Chief Operator [facility] [address] [facility] [address] [place] [address] Ayan Crowder, MANAGER WELDING [address] [place] [address] [email or web address] 06/27/2025 3:30 PM EDT Office Visit [facility], [facility] [place] [facility], [facility] [place] [facility] [place] [address] [facility] [address] [place] [address] Ayan Crowder, MANAGER WELDING [address] [place] [address] [email or web address] Health Maintenance Due Date Last Done Comments HEPATITIS C SCREENING 1966 ZOSTER VACCINES (1 of 2) 1967 Adult Td,Tdap Booster 09/02/2022 09/02/2012, 003 RSV VACCINE (1 - 1-dose 75+ series) 2023 DIABETIC EYE EXAM 06/23/2023 DEPRESSION SCREENING 06/22/2024 06/23/2023 INFLUENZA VACCINE (#1) 2024 , 02/24/2023, 01/28/2022, Additional history exists COVID-19 VACCINE ( season) 2024 12/22/2023, 08/18/2022, 03/21/2022, Additional history exists BLOOD PRESSURE 05/25/2025 11/22/2024 HEMOGLOBIN A1C 05/25/2025 11/22/2024, 09/10, 06/22/2024, Additional history exists PNEUMOCOCCAL VACCINES (50+ years) Completed 11/19/2023, 02/18/2005 OSTEOPOROSIS SCREENING INITIAL (ONE-TIME) Completed 06/01/2024 SMOKING STATUS SCREENING (Once After 26 Yrs) Completed 06/13/2024 HEPATITIS A VACCINES Aged Out No long er eligible based on patient's age to complete this topic HIB VACCINES Aged Out No longer eligi ble based on patient's age to complete this topic MENINGOCOCCAL VACCINES (ACWY) Aged Out No longer eligible based on patient's age to complete this topic MENINGOCOCCAL VACCINES (B) Aged Out N o longer eligible based on patient's age to complete this topic Medical Devices Implanted Type Area Picker And Sorter Load And Unload Device Identifier Shelf Expiration Date Model / Serial / Lot Marker Biopsy 13mm Breast Trimark For Mri Guided Ti Shape Cork Cs/10ea - [id number] Implanted:Qty: 1 on 08/07/2021 by Fabby Hobbs, AKI at [facility] Right: Breast [employer] TRIMARK TD 13MR / / Marker Ultraclip Ii 17ga 10cm Breast Tissue Ribbon Shaped Titanium Bx/5ea - [id number] Implanted:Qty: 1 on 08/07/2021 at [facility] Right: Breast [employer] 05/09/2024 [id number] / / [id number] Marker Biopsy 13mm Breast Trimark For Mri Guided Ti Shape Hourglass Cs/10ea - [id number] Implanted:Qty: 1 on 08/21/2021 by Natalie Garcia MD at [facility] Right: Breast [employer] TRIMARKTD-2 S-13-MR / / Description:Site 2 Marker Biopsy Breast Securmark For Mri Guided Ss Shape 3 [employer] Bx/10ea - [id number] Implanted:Qty: 1 on 08/21/2021 by Natalie Garcia MD at [facility] Right: Breast [employer] SMARK-M-SS3 / / Description:Site 1 Seed Loose 7cm Needle W/Trailing Spacer For [id number] Implanted:Qty: 1 on 10/07/2021 at [facility] [employer] 2069 / / Procedures Procedure Name Priority Date/Time Associated Diagnosis Comments OUTSIDE LAB 12/25/2024 LAB ADD ON Routine 11/22/2024 1:27 PM EDT Malignant neoplasm of right female breast, unspecified estrogen receptor status, unspecified site of breast FERRITIN Routine 11/22/2024 12:14 PM EDT HEMOGLOBIN A1C, TIWARI SENDOUT Routine 11/22/2024 12:14 PM EDT Malignant neoplasm of right female breast, unspecified estrogen receptor status, unspecified site of breast COMPREHENSIVE METABOLIC PANEL Routine 11/22/2024 12:14 PM EDT Malignant neoplasm of right female breast, unspecified estrogen receptor status, unspecified site of breast HC BLOOD COUNT COMPLETE AUTO&AUTO DIFRNTL WBC Routine 11/22/2024 12:14 PM EDT Malignant neoplasm of right female breast, unspecified estrogen receptor status, unspecified site of breast BD DXA AXIAL (SPINE) WITH HIP Routine 06/01/2024 11:17 AM EST Malignant neoplasm of right female breast, unspecified estrogen receptor status, unspecified site of breast Age-related osteoporosis without current pathological fracture from Last 3 Months or Most Recently Relevant to Health Maintenance Results * Outside Lab (12/25/2024) us Scanning Interface Provider LAB BLOOD ORDERABLES Final Result * Lab Add On: ferritin (11/22/2024 1:27 PM EDT) TEST REQUESTED FERRITIN [facility] LIC# [id number] Comments (Chemistry) TEST TO BE ADDED ON TO EXISTING SPECIMEN [facility] LIC# [id number] Blood 11/22/2024 1:27 PM EDT 11/22/2024 1:28 PM EDT us Ayan Crowder CNP LAB BLOOD ORDERABLES Final Result [facility] LIC# [id number] [address] * (ABNORMAL) Hemoglobin A1c, sendout (11/22/2024 12:14 PM EDT) HEMOGLOBIN A1C 6.0(H) 4.0 - 5.6 % [facility] DPT OF LAB MED AND PAT+ Comment: (NOTE) Hemoglobin A1c values of 5.7-6.4 percent indicate an increased risk for developing diabetes mellitus. In diabetic patients, HbA1c goals should be discussed with healthcare provider. Blood 11/22/2024 12:1 4 PM EDT 11/22/2024 12:15 PM EDT us Nayana Machado MD LAB BLOOD ORDERABLES Final Result [facility] DPT OF LAB MED AND PAT+ [address] [place] [address] * (ABNORMAL) Comprehensive metabolic panel (11/22/2024 12:14 PM EDT) Pathologist [facility] SODIUM 141 136 - 145 mmol/L [facility] LIC# [id number] POTASSIUM 4.2 3.4 - 5.1 mmol/L [facility] LIC# [id number] Comment:INTERPRET WITH CAUTI ON, SPECIMEN HEMOLYZED CHLORIDE 106 98 - 107 mmol/L [facility] LIC# [id number] CO2 22 22 - 31 mmol/L [facility] LIC# [id number] BUN 14 6 - 23 mg/dL [facility] LIC# [id number] CREATININE 1.59(H) 0.50 - 1.20 mg/dL [facility] LIC# [id number] GLUCOSE 125(H) 70 - 100 mg/dL [facility] LIC# [id number] ALBUMIN 4.1 3.5 - 5.2 g/dL [facility]# [id number] TOTAL PROTEIN 7.4 6.4 - 8.3 g/dL [facility]# [id number] CALCIUM 9.7 8.8 - 10.7 mg/dL [facility]# [id number] ALKALINE PHOSPHATASE 126(H) 35 - 104 U/L [facility]# [id number] TOTAL BILIRUBIN 0.7 0.2 - 1.2 mg/dL [facility]# [id number] AST 57(H) <33 U/L [facility]# [id number] Comment: INTERPRET WITH CAUTION, SPECIMEN HEMOLYZED RESULT MAY BE ELEVATED BY UP TO 20 U/L ALT 75(H) <34 U/L [facility]# [id number] GLOBULIN 3.3 2.3 - 4.2 g/dL [facility]# [id number] EGFR 33(L) >59 mL/min/1.7 3m2 [facility]# [id number] Comment:Estimated glomerular filtration rate calculated using the CKD-EPI refit equation. ANION GAP 13 7 - 17 mmol/L [facility]# [id number] Blood 11/22/2024 12:1 4 PM EDT 11/22/2024 12:15 PM EDT us Nayana Machado MD LAB BLOOD ORDERABLES Final Result [facility]# [id number] [address] [place] [address], [facility] * (ABNORMAL) CBC and differential (11/22/2024 12:14 PM EDT) WBC 7.88 4.00 - 10.00 K/uL [facility]# [id number] RBC 4.01 3.90 - 6.00 M/uL [facility]# [id number] HGB 11.9 11.5 - 16.4 g/dL [facility] LIC# [id number] HCT 37.5 36.0 - 48.0 % [facility] LIC# [id number] PLT 146(L) 150 - 450 K/uL [facility] LIC# [id number] Comment:Result checked MCV 93.5 80.0 - 100.0 fL [facility] LIC# [id number] MCH 29.7 27.0 - 32.0 pg [facility] LIC# [id number] MCHC 31.7(L) 32.0 - 36.0 g/dL [facility] LIC# [id number] RDW 13.1 11.5 - 14.5 % [facility] LIC# [id number] MPV UNABLE TO RESULT 8.4 - 12.0 fL [facility] LIC# [id number] NRBC 0.00 0.00 /100 WBCs [facility] LIC# [id number] ABSOLUTE NRBC 0.00 0 K/uL [facility] LIC# [id number] DIFF METHOD Auto [facility] LIC# [id number] NEUTS 60.0 48.0 - 76.0 % [facility] LIC# [id number] LYMPHS 17.9(L) 18.0 - 41.0 % [facility] LIC# [id number] MONOS 20.3(H) 4.0 - 11.0 % [facility] LIC# [id number] EOS 0.3 0.0 - 5.0 % [facility] LIC# [id number] BASOS 0.1 0.00 - 1.50 % [facility] LIC# [id number] % IMMATURE GRANS 1.4(H) 0.00 - 1.00 % [facility] LIC# [id number] ABSOLUTE NEUTS 4.73 1.92 - 7.60 K/uL [facility] LIC# [id number] ABSOLUTE LYMPHS 1.41 0.72 - 4.10 K/uL [facility] LIC# [id number] ABSOLUTE MONOS 1.60(H) 0.16 - 1.10 K/uL [facility] LIC# [id number] ABSOLUTE EOS 0.02 0.00 - 0.50 K/uL [facility] LIC# [id number] ABSOLUTE BASOS 0.01 0.00 - 0.15 K/uL [facility] LIC# [id number] ABS IMMATURE GRANS 0.11(H) 0.00 - 0.10 K/uL [facility] LIC# [id number] Blood 11/22/2024 12:1 4 PM EDT 11/22/2024 12:15 PM EDT us Nayana Machado MD LAB BLOOD ORDERABLES Final Result Performing Organization Address City/[facility]/ZIP Co de Phone Number [facility] LIC# [id number] [address] [place] [address] * (ABNORMAL) Ferritin (11/22/2024 12:14 PM EDT) FERRITIN 1,461(H) 13 - 150 ug/L [facility] LIC# [id number] 11/22/2024 12:1 4 PM EDT 11/22/2024 12:15 PM EDT us Nayana Machado MD LAB BLOOD ORDERABLES Final Result Performing Organization Address City/[facility]/ZIP Co de Phone Number [facility] LIC# [id number] [address] [place] [address] * BD DXA AXIAL (SPINE) WITH HIP (06/01/2024 11:17 AM EST) Anatomical Region Laterality Modality Bone Density Bone Density 06/01/2024 11:3 0 AM EST Impressions 06/06/2024 9:45 AM EST Interpretation: Normal bone mineral density. Narrative 06/06/2024 9:45 AM EST Referred By: AYAN CROWDER Indications: Long-Term Treatment with Aromatase inhibitors Scanner: Picapica A with serial# of [id number] located at [facility] Bone Density Scan (DXA) 06/01/24 Details of prior DXA scans are available by clicking View Image BMD T- Z- Skeletal Site gm/cm2 score score BMD Change Since Prior Scan ------ ----- ----- PA Spine (L1-L4) 1.480 3.90 5.70 N/A Total Hip (Left) 1.303 3.00 3.10 N/A Femoral Neck (Left) 1.268 3.80 3.90 N/A ------ ----- ----- * Denotes significant change when >= 0.022 g/cm2 for the spine, 0.027 g/cm2 for the total hip, 0.029 g/cm2 for the femoral neck. Interpretation: Normal bone mineral density. Technical Quality: Imaging of all sites was of adequate quality. FRAX: A FRAX(r) score is not provided because the patient has normal bone density. Additional Information: -World Health Organization criteria classify adults based on lowest T-score at PA spine, hip or forearm: Normal (T-score >= -1.0), Osteopenia (T-score between -1 and -2.5), or Osteoporosis (T-score <= -2.5). At [facility], T-scores are compared to peak bone density of a young white gender matched reference population. - For premenopausal women and men under the age of 50, Z-scores (comparison to age, gender, and ethnicity matched reference population) are used: Above expected range for age (Z-score >= 2.0), Within expected range of age (Z-score 1.9 to -1.9), or Below expected range for age (Z-score <= -2.0). - The Bone Health and Osteoporosis Foundation recommends that treatment be considered in men aged more than 50 years and in postmenopausal women with ANY of the following: Prior hip or vertebral fractures; T-score of <= -2.5 at the PA spine or hip; or 10 year fracture probability by FRAX of >= 3% for the hip or >= 20% for major osteoporotic fracture. - The FRAX algorithm (https://www.ryanne.ac.uk/FRAX/tool.aspx) is designed to predict 10-year fracture risk in treatment-naive adults between the ages of 40 and 90. It is not intended to be used in those receiving pharmacologic osteoporosis treatment. - Including race/ethnicity in the generation of T- or Z-scores or in the FRAX calculation is complicated, and currently undergoing active review to ensure that we can give patients the best information on their risk of fracture. -Click on View Full Report to see subsequent pages with images and prior bone density results. Reviewed By: Alexx Betancourt on 06/06/2024 09:45:55 Procedure Note Alexx Betancourt MD - 06/06/2024 Referred By: AYAN CROWDER Indications: Long-Term Treatment with Aromatase inhibitors Scanner: Picapica A with serial# of [id number] located at [facility] Chief Operator Lock Tender [facility] Bone Density Scan (DXA) 06/01/24 Details of prior DXA scans are available by clicking View Image BMD T- Z- Skeletal Site gm/cm2 score score BMD Change Since Prior Scan ------ ----- PA Spine (L1-L4) 1.480 3.90 5.70 N/A Total Hip (Left) 1.303 3.00 3.10 N/A Femoral Neck (Left) 1.268 3.80 3.90 N/A ------ ----- * Denotes significant change when >= 0.022 g/cm2 for the spine, 0.027g/cm2 for the total hip, 0.029 g/cm2 for the femoral neck. Interpretation: Normal bone mineral density. Technical Quality: Imaging of all sites was of adequate quality. FRAX: A FRAX(r) score is not provided because the patient has normal bone density. Additional Information: -World Health Organization criteria classify adults based on lowestT-score at PA spine, hip or forearm: Normal (T-score >= -1.0), Osteopenia (T-score between -1 and -2.5), or Osteoporosis (T-score <= -2.5). At [facility], T-scores are compared to peak bonedensity of a young white gender matched reference population. - For premenopausal women and men under the age of 50, Z-scores(comparison to age, gender, and ethnicity matched reference population) are used:Above expected range for age (Z-score >= 2.0), Within expected range of age (Z-score 1.9 to -1.9), or Below expected range for age (Z-score <= -2.0). - The Bone Health and Osteoporosis Foundation recommends that treatment be considered in men aged more than 50 years and in postmenopausal women with ANY of the following: Prior hip or vertebral fractures; T-score of <= -2.5 at the PA spine or hip; or 10 year fracture probability by FRAX of >= 3%for the hip or >= 20% for major osteoporotic fracture. - The FRAX algorithm (https://www.ryanne.ac.uk/FRAX/tool.aspx) is designed to predict 10-year fracture risk in treatment-naive adultsbetween the ages of 40 and 90. It is not intended to be used in those receiving pharmacologic osteoporosis treatment. - Including race/ethnicity in the generation of T- or Z-scores or in the FRAX calculation is complicated, and currently undergoing active review to ensure that we can give patients the best information on their risk of fracture. -Click on View Full Report to see subsequent pages with images and prior bone density results. Reviewed By: Alexx Betancourt on 06/06/2024 09:45:55 IMPRESSION: Interpretation: Normal bone mineral density. Ayan Crowder MANAGER WELDING IMG BD BONE DENSITY DEXA Final Result from Last 3 Months or Most Recently Relevant to Health Maintenance Insurance MEDICARE PART A & B [facility] MEDICARE SUPPLEMENT MEDICARE PART A & B MEDICARE SUPPLEMENT MEDICARE PART A & B MEDICARE SUPPLEMENT MEDICARE PART A & B Member Subscriber Plan / Payer ( fective 2014-Present) Name:Kellee Shah Member ID:[id number] Relation to Subscriber:Self Name:Kellee Shah Subscriber ID:[id number] Payer ID:[id number] Group ID:Not on file Type:Medicare Address: [employer] [address] MEDICARE SUPPLEMENT ([place]) [address] [place] [address] MEDICARE PART A & B MEDICARE SUPPLEMENT MEDICARE PART A & B MEDICARE SUPPLEMENT ([place]) [address] [place] [address] MEDICARE PART A & B MEDICARE SUPPLEMENT MEDICARE PART A & B Member Subscriber Plan / Payer ( fective 2014-Present) Name:Kellee Shah Member ID:[id number] Relation to Subscriber:Self Name:Kellee Shah Subscriber ID:[id number] Payer ID:[id number] Group ID:Not on file Type:Medicare Address: [email or web address] [address] MEDICARE SUPPLEMENT MEDICARE PART A & B Member Subscriber Plan / Payer ( fective 2014-) Name:Kellee Shah Member ID:[id number] Relation to Subscriber:Self Name:Kellee Shah Subscriber ID:[id number] Payer ID:[id number] Group ID:Not on file Type:Medicare Address: [email or web address] [address] MEDICARE SUPPLEMENT Advance Directives For more information, please contact: [phone] (9AM - 5PM [place], Wednesday-Wednesday) * Full Code (Latest Code Status on File) Date Activated Date Inactivated Comments 10/08/2021 10:43 AM Question Answer Comments Code Status Confirmed With: Patient Care Teams Plastic Extruding Machine Operator Relationship Specialty Start Date End Date Alicia West MD [email or web address] PCP - General Internal Medicine 07/10/21 Steve Machado DC [address] [place] [address] Chiropractic Medicine 07/10/21 Cailin Garner, [facility] [place] DIVISION [address] [place] [address] Cesia@[email or web address] Application Development Project Manager Oncology 10/15/21 Becca Patel RN [address] [place] [address] CHICHO@[email or web address] Primary Infusion Nurse 11/13/21 Sissy Aguilar, AKI [address] [place] [phone] Cheyenne@[facility] Primary Infusion Nurse 12/10/21 Tri Tyler, [facility] [place] [facility] 35 [place] [address] Yash@[email or web address] Application Development Project Manager Oncology 04/17/22 Nayana Machado MD [address] [address] James@[email or web address] Medical Oncology 06/02/22 Kt Bird MD [address] [place] [address] Internal Medicine 08/06/22 Qamar Cee MD [address] [place] [address] Nephrology 08/06/22 Additional Source Comments The information contained in this document represents components of the legal health record. It is not the complete legal health record.[facility]
--- OUTSIDE RECORDS SUMMARY | 2025-02-08 12:33 | XMS_ITS | Encounter Summary ---
Author Organization [facility] Address [address] [place] [address] Phone Care Team Providers Care Head Of It Name Role Phone Alicia West MD Primary Care Provider [phone] Steve Machado DC Unavailable Cailin [place] Unavailable Loni [place]@[email or web address]. Becca Acuña RN Unavailable Sissy Aguilar RN Unavailable Cheyenne@ [facility] Tri Tyler APICULTURIST Unavailable Nayana Machado MD Unavailable Kt Bird MD Unavailable [phone] Qamar Cee MD Unavailable Encounter Details Date Type Department Care Team (Late st Contact Info) Description 06/16/2023 Procedure Pass [facility] [address] [place] [address] Social History Tobacco Use Types Packs/Day Years [...] st Contact Info) Description 11/22/2024 Procedure Pass [facility] and Women's Diagnostic Radiologist Center 850 [facility] 560 [place] [address] 02/28/2025 1:30 PM EST Blood Draw Laboratory Services, [facility] at [address] [address] Nayana Machado MD [address] [place] [address] James@[email or web address] .[facility] 02/28/2025 2:30 PM EST Office Visit Center for Breast Oncology, Aruna Ramon [place] [facility], [facility] at [address] [address] Nayana Machado MD [address] [place] [address] James@[facility] .[facility] 02/28/2025 3:30 PM EST Infusion Infusion Therapy Services South, [facility] at [address] [address] Nayana Machado MD [address] [place] [address] LizzyildefonsoCarter@[email or web address] .[facility] 06/13/2025 11:00 AM EST Telemedicine [facility] Medical Weight Management [address] 2nd [place] [address] Krystle Avalos MD 850 [place] [address] [email or web address] 06/27/2025 2:00 PM EDT Appointment [facility] and Women's Diagnostic Radiologist Center 850 [facility] 560 [place] [address] Ayan Stein, LOG GETTER 75 [place] [address] Anson@[facility] 06/27/2025 3:30 PM EDT Office Visit Center for Breast Oncology, Aruna Ramon [place] [facility], [facility] [facility] [place] 300 [facility] 4th [place] [address] Ayan Stein, LOG GETTER 75 [place] [address] Anson@[facility] documented as of this encounter Visit Diagnoses Not on filedocumented in this encounter Additional Health Concerns Assessment Noted Time PHQ-2 Depression Total Score: 0 06/23/19 24 11:08 AM EDT documented as of this encounter Care Teams Head Of It Relationship Specialty Start Date End Date Alicia West MD [email or web address] PCP - General Internal Medicine 07/10/21 Steve Machado DC [address] [place], [place] 7237[address] Chiropractic Medicine 07/10/21 Cailin [place] APICULTURIST [address] [place] [address] CailinYolette@[facility] Acid Changer Oncology 10/15/21 Becca Patel RN 300 [place] [address] CHICHO@[facility] Primary Infusion Nurse 11/13/21 Sissy Aguilar RN 2014 [place] [address] Cheyenne@[facility] Primary Infusion Nurse 12/10/21 Tri Tyler, [facility] 35 [place] [address] Yash@[email or web address] Acid Changer Oncology 04/17/22 Nayana Machado MD 44 [facility] [address] [place] [address] James@[email or web address]. [facility] Medical Oncology 06/02/22 Kt Bird MD [address] [place] [address] Internal Medicine 08/06/22 Qamar Cee MD [address] [place] [address] Nephrology 08/06/22 documented as of this encounter Additional Source Comments The information contained in this document represents components of the legal health record. It is not the complete legal health record.[facility]
--- OUTSIDE RECORDS SUMMARY | 2025-02-08 12:33 | XMS_ITS | Encounter Summary ---
Author Organization [facility] Address [address] [facility] [address] [place] [address] Phone Care Team Providers Care Genetic Physician Name Role Phone Alicia West MD Primary Care Provider [phone] Steve Machado DC Unavailable Cailin [place] Unavailable Loni [place]@[facility].[place]. Becca Acuña RN Unavailable [phone] Sissy Aguilar RN Unavailable Cheyenne@ [facility].[place].[facility] Tri Tyler BINDERY HELPER Unavailable Nayana Machado MD Unavailable [phone] Kt Bird MD Unavailable [phone] Qamar Cee MD Unavailable Encounter Details Date Type Department Care Team (Late st Contact Info) Description 11/04/2021 Procedure Pass Ariza Lank Imaging Department, [facility] [place] 450 [facility], Floor L1 [place] [address] Social History Tobacco Use Types Packs/Day [...] st Contact Info) Description 11/22/2024 Procedure Pass [facility] and Women's Vending Route Driver Center [address] [facility] 560 [place] [address] 02/28/2025 1:30 PM EST Blood Draw Laboratory Services, [facility] at [address] [address] Nayana Machado MD [address] [place] [address] James@[email or web address] .[facility] 02/28/2025 2:30 PM EST Office Visit Center for Breast Oncology, Aruna Ramon [place] [facility], [facility] [place] [address] [address] Nayana Machado MD [address] [place] [address] James@[email or web address] .[facility] 02/28/2025 3:30 PM EST Infusion Infusion Therapy Services [facility], [facility] at [address] [address] Nayana Machado MD [address] [place] [address] James@[email or web address] .[facility] 06/13/2025 11:00 AM EST Telemedicine [facility] Medical Weight Management [address] [address] Krystle Avalos MD 850 [place] [address] [email or web address] u 06/27/2025 2:00 PM EDT Appointment Jorge and Women's Vending Route Driver Center [address] [facility] 560 [place] [address] Ayan Stein, ASSOCIATE CHIEF NURSE 75 [place] [address] Anson@[facility] 06/27/2025 3:30 PM EDT Office Visit Center for Breast Oncology, Aruna Ramon [place] [facility], [facility] [facility] [place] [facility] [place] 300 [facility] 4th [place] [address] Ayan Stein, ASSOCIATE CHIEF NURSE 75 [place] [address] Anson@[facility] documented as of this encounter Visit Diagnoses Not on filedocumented in this encounter Care Teams Genetic Physician Relationship Specialty Start Date End Date Alicia West MD [email or web address] PCP - General Internal Medicine 07/10/21 Steve Machado DC 115[address] [place], [place] 28928[address] Chiropractic Medicine 07/10/21 Cailin [place], [facility] 1156 [place] [address] Cesia@[facility] Ingot Passer Oncology 10/15/21 Becca Patel RN 300 [place] [address] CHICHO@[facility] Primary Infusion Nurse 11/13/21 Sissy Aguilar RN 2014 [place] [address] Cheyenne@[facility] Primary Infusion Nurse 12/10/21 Tri Tyler, BINDERY HELPER 35 [place] [address] Yash@[email or web address] Ingot Passer Oncology 04/17/22 Nayana Machado MD [address] [address] James@[email or web address]. [facility] Medical Oncology 06/02/22 Kt Bird MD [address] [place] [address] Internal Medicine 08/06/22 Qamar Cee MD [address] [place] [address] Nephrology 08/06/22 documented as of this encounter Additional Source Comments The information contained in this document represents components of the legal health record. It is not the complete legal health record.[facility]
--- OUTSIDE RECORDS SUMMARY | 2025-02-08 12:33 | XMS_ITS | Encounter Summary ---
Author Organization [facility] Address [address] [place] [address] Phone Care Team Providers Care Pressure Supervisor Name Role Phone Alicia West MD Primary Care Provider [phone] Steve Machado DC Unavailable Cailin [place] Unavailable Loni [place]@[email or web address].[place]. U Becca Patel RN Unavailable Sissy Aguilar RN Unavailable Sissy_Jeff@ [facility].[place].[facility] Tri Tyler AQUATIC BIOLOGIST Unavailable [phone] Nayana Machado MD Unavailable Kt Bird MD Unavailable Qamar Cee MD Unavailable Encounter Details Date Type Department Care Team (Late st Contact Info) Description 10/08/2021 Procedure Pass [facility] Periop 1st floor 1153 [place] [address] Social History Tobacco Use Types Packs/Day Years [...] Description 11/22/2024 Procedure Pass Jorge and Women's Homoeopath Center 850 [facility] 560 [place] [address] 02/28/2025 1:30 PM EST Blood Draw Laboratory Services, [facility] at [address] [address] Nayana Machado MD [address] [place] [address] [email or web address] .[facility] 02/28/2025 2:30 PM EST Office Visit Center for Breast Oncology, Aruna Ramon [place] [facility] Women[facility]ancers, [facility] at [address] [address] Nayana Machado MD [address] [place] [address] James@[facility] .[facility] 02/28/2025 3:30 PM EST Infusion Infusion Therapy Services South, [facility] at [address] [address] Nayana Machado MD [address] [place] [address] James@[facility] .[facility] 06/13/2025 11:00 AM EST Telemedicine [facility] Medical Weight Management 221 [facility] 2nd [place] [address] Krystle Avalos MD 850 [place] [address] [email or web address] u 06/27/2025 2:00 PM EDT Appointment [facility] and Women's Homoeopath Center 850 [facility] 560 [place] [address] Ayan Stein, MEDIATOR 75 [place] [address] Anson@[facility] 06/27/2025 3:30 PM EDT Office Visit Center for Breast Oncology, Aruna Ramon [place] [facility]ancers, [facility] [place] [facility] [place] 300 [facility] 4th [place] [address] Ayan Stein, MEDIATOR 75 [place] [address] Anson@[facility] documented as of this encounter Visit Diagnoses Not on filedocumented in this encounter Care Teams Pressure Supervisor Relationship Specialty Start Date End Date Alicia West MD [email or web address] PCP - General Internal Medicine 07/10/21 Steve Machado DC 1156 [place] [address] Chiropractic Medicine 07/10/21 Cailin [place], [facility] 1156 [place] [address] Cesia@[facility] Stonehand Oncology 10/15/21 Becca Patel RN 300 [place] [address] CHICHO@[facility] Primary Infusion Nurse 11/13/21 Sissy Aguilar, AKI [address] [place] [phone] Cheyenne@[facility] Primary Infusion Nurse 12/10/21 Tri Tyler, [facility] 35 [place] [address] Yash@[facility] Stonehand Oncology 04/17/22 Nayana Machado MD [address] [place] [address] James@[facility]. [facility] Medical Oncology 06/02/22 Kt Bird MD [address] [place] [address] Internal Medicine 08/06/22 Qamar Cee MD [address] [place] [address] Nephrology 08/06/22 documented as of this encounter Additional Source Comments The information contained in this document represents components of the legal health record. It is not the complete legal health record.[facility]
--- OUTSIDE RECORDS SUMMARY | 2025-02-08 12:33 | XMS_ITS | Encounter Summary ---
Author Organization [facility] Address [address] [place] [address] Phone Care Team Providers Care Clothing Trades Workers Name Role Phone Alicia West MD Primary Care Provider [phone] Steve Machado DC Unavailable Cailin [place] Unavailable Loni Garner@[facility].[place]. U Becca Patel RN Unavailable Sissy Aguilar RN Unavailable Sissy_Jeff@ [facility].[place].[facility] Tri Tyler REPROGRAPHICS TECHNICIAN Unavailable Nayana Machado MD Unavailable [phone] Kt Bird MD Unavailable Qamar Cee MD Unavailable Encounter Details Date Type Department Care Team (Late st Contact Info) Description 07/30/2021 Procedure Pass Jorge and Women's Radiology 75 [facility] 2nd [facility], [place] [address] Social History Tobacco Use Types Packs/Day Years [...] st Contact Info) Description 11/22/2024 Procedure Pass [facility] and Women's Coverage Specialist Rn Center 850 [facility] 560 [place] [address] 02/28/2025 1:30 PM EST Blood Draw Laboratory Services, [facility] at [address] [address] Nayana Machado MD [address] [place] [address] James@[email or web address] .[facility] 02/28/2025 2:30 PM EST Office Visit Center for Breast Oncology, Aruna Ramon [place] [facility] Women's Cancers, [facility] at [address] [address] Nayana Machado MD [address] [place] [address] James@[email or web address] .[facility] 02/28/2025 3:30 PM EST Infusion Infusion Therapy Services South, [facility] at [address] [address] Nayana Machado MD [address] [place] [address] James@[email or web address] .[facility] 06/13/2025 11:00 AM EST Telemedicine [facility] Medical Weight Management [address] [address] Krystle Avalos MD 850 [place] [address] [email or web address] u 06/27/2025 2:00 PM EDT Appointment [facility] and Women's Coverage Specialist Rn Center 850 [facility] [address] [place] [address] Ayan Stein, AVIATION BOATSWAIN'S MATE 75 [place] [address] Anson@[facility]. [facility] 06/27/2025 3:30 PM EDT Office Visit Center for Breast Oncology, Aruna Ramon [place] [facility] Women's Cancers, [facility] [place] [facility] [place] 300 [facility] 4th [place] [address] Ayan Stein, AVIATION [employer]ATSWA[employer] MATE 75 [place] [address] Anson@[facility]. [facility] documented as of this encounter Visit Diagnoses Not on filedocumented in this encounter Care Teams Clothing Trades Workers Relationship Specialty Start Date End Date Alicia West MD [email or web address] PCP - General Internal Medicine 07/10/21 Steve Machado DC 1156 [place] [address] Chiropractic Medicine 07/10/21 Cailin [place] [facility] 1156 [place] [address] Cesia@[facility]. [facility] Test Baker Oncology 10/15/21 Becca Patel RN 300 [place] [address] CHICHO@[facility] Primary Infusion Nurse 11/13/21 Sissy Aguilar, AKI [address] [place] [phone] Cheyenne@[facility] Primary Infusion Nurse 12/10/21 Tri Tyler, [facility] 35 [place] [address] Yash@[facility] Test Baker Oncology 04/17/22 Nayana Machado MD [address] [place] [address] James@[facility]. [facility] Medical Oncology 06/02/22 Kt Bird MD [address] [place] [address] Internal Medicine 08/06/22 Qamar Cee MD [address] [place] [address] Nephrology 08/06/22 documented as of this encounter Additional Source Comments The information contained in this document represents components of the legal health record. It is not the complete legal health record.[facility]
--- OUTSIDE RECORDS SUMMARY | 2025-02-08 12:33 | XMS_ITS | Encounter Summary ---
Author Organization [facility] Address [address] [place] [address] Phone Care Team Providers Care Impregnating Helper Name Role Phone Alicia West MD Primary Care Provider [phone] Steve Machado DC Unavailable Cailin [place] Unavailable Loni [place]@[facility]. Becca Acuña RN Unavailable Sissy Aguilar RN Unavailable Cheyenne@ [facility].[facility] Tri Tyler AUTO CLUB SAFETY PROGRAM COORDINATOR Unavailable Nayana Machado MD Unavailable Kt Bird MD Unavailable Qamar Cee MD Unavailable Encounter Details Date Type Department Care Team (Late st Contact Info) Description 08/18/2023 Procedure Pass [facility] [facility] [place], Mammography, Raiza Lank Imaging Department 450 [place] [address] Social History Tobacco Use Types Packs/Day Years [...] st Contact Info) Description 11/22/2024 Procedure Pass [facility] 850 [facility] 560 [place] [address] 02/28/2025 1:30 PM EST Blood Draw Laboratory Services, [facility] at [address] [address] Nayana Machado MD [address] [place] [address] [email or web address] .[facility] 02/28/2025 2:30 PM EST Office Visit Center for Breast Oncology, Aruna Ramon [place] [facility] Women's Cancers, [facility] at [address] [address] Nayana Machado MD [address] [place] [address] James@[facility] .[facility] 02/28/2025 3:30 PM EST Infusion Infusion Therapy Services South, [facility] at [address] [address] Nayana Machado MD [address] [place] [address] [email or web address] .[facility] 06/13/2025 11:00 AM EST Telemedicine [facility] Medical Weight Management [address] 2nd [place] [address] Krystle Avalos MD 850 [place] [address] [email or web address] 06/27/2025 2:00 PM EDT Appointment [facility] 850 [facility] 560 [place] [address] Ayan Stein, SMALL STOCK FACER 75 [place] [address] Anson@[facility] 06/27/2025 3:30 PM EDT Office Visit Center for Breast Oncology, Aruna Ramon [place] [facility] Women's Cancers, [facility] [place] [facility] [place] 300 [facility] 4th [place] [address] Ayan Stein, SMALL STOCK FACER 75 [place] [address] Anson@[facility]. [facility] documented as of this encounter Visit Diagnoses Not on filedocumented in this encounter Additional Health Concerns Assessment Noted Time PHQ-2 Depression Total Score: 0 06/23/19 24 11:08 AM EDT documented as of this encounter Care Teams Impregnating Helper Relationship Specialty Start Date End Date Alicia West MD [email or web address] PCP - General Internal Medicine 07/10/21 Steve Machado DC 1156 [place] [address] Chiropractic Medicine 07/10/21 Cailin [place] LICSW 1156 [place] [address] Cesia@[facility]. [facility] Camp Guard Oncology 10/15/21 Becca Patel RN 300 [place] [address] CHICHO@[email or web address] Primary Infusion Nurse 11/13/21 Sissy Aguilar, AKI 2014 [place] [address] Cheyenne@[facility] Primary Infusion Nurse 12/10/21 Tri Tyler, [facility] 35 [place] [address] Yash@[email or web address] [employer] Oncology 04/17/22 Nayana Machado MD [address] [address] James@[facility]. [facility] Medical Oncology 06/02/22 Kt Bird MD [address] [place] [address] Internal Medicine 08/06/22 Qamar Cee MD [address] [place] [address] Nephrology 08/06/22 documented as of this encounter Additional Source Comments The information contained in this document represents components of the legal health record. It is not the complete legal health record.[facility]
== END 2025-02-08 11:06 | disposition home or self-care (01) ==
LOC: HO.HKAS 10:22
PROVIDERS: PCP Internal Medicine; Visit Provider Internal Medicine Nephrology
DX: N18.31 Chronic kidney disease, stage 3a (principal); R80.8 Other proteinuria; I10 Essential (primary) hypertension
CPT/HCPCS: 99214

== ENCOUNTER → 2025-02-08 10:21 | Outpatient (BNVA) | payer MEDICARE, OTHER, SELFPAY | PROVIDERS: PCP Internal Medicine; Visit Provider Internal Medicine Nephrology | DX: I12.9 Hypertensive chronic kidney disease with stage 1 through stage 4 chronic kidney disease, or unspecified chronic kidney disease (principal); N18.31 Chronic kidney disease, stage 3a; R80.8 Other proteinuria | CPT/HCPCS: 99212 ==